=== PATIENT | female | born 1965 | race Caucasian/White ===

== ENCOUNTER 2016-09-07 17:41 | Emergency (ER) | payer BC ==
[~2016-09-07 17:41] MED LIST: /CIPR75TA PO; /MOM400 PO; /PANT40TA PO; ADVI200C5 PO; ALBU17IN INH; ALBU17IN2 INH; ALBU83IN INH; ALBUTEROL INH; ALBUTEROL NEB INH; ARTI99.0 OU; ASPI1TAB PO; ASPI325T PO; ASPI81TA83 PO; BENA25CA2 PO; BUSP5TA PO; BUTACAP PO; BYST10TA2 PO; BYST2.5T PO; CARD240T3 PO; CEPH2CAP PO; CHLO125TA PO; CHLO25TA PO; CHLO25TA3 PO; CLOB5CR EXT; CYCL5TA PO; CYCL5TAB PO; DEPA500T2 PO; DIOV160T5 OR; DIOV320T PO; DOCU10ELUD PO; DRIS50002 PO; FIORCAP3 PO; FIORCAP7 PO; FLAG500T PO; FLEX5TAB3 PO; FLEXERIL PO; FLON1SPR; FLUT50SP; FLUTICASONE; FLUTISP; GLIM1TAB PO; GLIM4TAB PO; GLUC500T PO; HYDR-3713 PO; HYDR10T PO; HYDR25TA PO; IBUP-1114 PO; INSUDET SC; LEVA500T PO; LEVO500T PO; LIDO5DIS EX; LIPI80TA OR; LOPR50TA OR; LOPR50TA PO; MAGN64TASA PO; METF-414 PO; METF1000 PO; MUPI2OI EXT; MUPI2OI TOP; NAPR375T PO; NITR100C37 PO; NITR25SU PO; NORCOTAB PO; OMEP20CA3 PO; OMEP40CA2 PO; OXYC5TAB2 PO; PERC5TAB8 PO; PRED10TA2 PO; PROP80TA PO; RANI1TAB6 PO; ROSU10TA PO; ROSU40TA PO; SENO8.6T9 PO; SERT50TA2 PO; SPIR25TA2 PO; SUCR1SS PO; SYMB16INH INH; SYMB80INH INH; SYMBICORT INH; TRAN100T PO; TYLE167L PO; TYLE325T5 PO; VIST25CA PO; VITAD1000T PO; VITAMIN D PO; VITMTA PO; ZANT150T PO; ZONI25CA2 PO; [UNRECOGNIZED DRUG - OTHER] OR; [UNRECOGNIZED DRUG - OTHER] PO; [UNRECOGNIZED DRUG - OTHER] PO; albuterol INH; fluticasone; magnesium chloride PO
[2016-09-07 18:58] LABS: BASO # 0.1 K/mm3 (0.0-0.2); BASO % 1.2 % (0.0-1.0); EOS # 0.2 K/mm3 (0.0-0.50); EOS % 2.4 % (0.0-3.0); LARGE UNSTAINED CELL # 0.2 K/mm3 (0.0-0.4); LARGE UNSTAINED CELL % 1.7 % (0.0-4.0); LYMPH # 1.9 K/mm3 (1.5-4.5); LYMPH % 18.1 % (24.0-44.0); MEAN CORPUSCULAR HEMOGLOBIN 28.4 pg (27.0-33.0); MEAN CORPUSCULAR VOLUME 85.9 fl (80.0-96.0); MONO # 0.6 K/mm3 (0.0-0.8); MONO % 6.1 % (0.0-5.0); NEUTROPHILS # 6.6 K/mm3 (1.8-7.7); NEUTROPHILS % 70.5 % (36.0-66.0); PLATELET COUNT, AUTOMATED 263 k/mm3 (150-450); RED CELL DISTRIBUTION WIDTH 13.6 % (11.5-14.5); WHITE BLOOD COUNT 9.4 K/mm3 (4.0-10.0)
[2016-09-07 19:01] LABS: CALCIUM LEVEL 9.5 MG/DL (8.5-10.1); CREATININE FOR GFR 1.07 MG/DL (0.55-1.02); POTASSIUM SERUM 3.3 MEQ/L (3.5-5.1)
[2016-09-07 19:22] LABS: ERYTHROCYTE SEDIMENTATION RATE 54 mm/hr (0-20)
--- NOTE | 2016-09-07 20:12 | EDDOCDS ---
Nurse's Notes [facility] Name: Ruby Rodriguez Age: 51 yrs Sex: Female : 1965 Arrival Date: 09/07/2016 Time: 17:41 Bed 12 Private MD: Jerrod Wilknison P. Diagnosis: Somatization disorder;Type 2 diabetes mellitus Presentation: 09/07 17:45 Presenting complaint: Presenting complaint: EMS states: numbness and weakness to all 4 kc3 extremities with pt c/o tingling to upper extremities and face upon arrival. 17:48 The last date and time the patient was known to be well was was at 16:00 on September 07 2016. Pt with weakness to upper and lower extremities. Pt reports numbness to right side of face. Pt reports tingling to face and upper extremities. The patients blood glucose was checked before arriving to the hospital and was found to be normal. Adult Sepsis Screening: The patient does not have new or worsening altered mentation. Patient's respiratory rate is less than 22. Systolic blood pressure is greater than 100. Patient has a qSOFA score of 0- Negative Sepsis Screen. Suicide/Homicide risk assessment- the patient denies having any suicidal and/or homicidal ideations and does not present with any other emotional, behavioral or mental health complaints. Status: Patient is not a environmental services attendant or dependent. Transition of care: patient was not received from another setting of care. 17:48 Acuity: LEE Level 3 kc3 17:48 Method Of Arrival: Ambulance kc3 18:00 Care prior to arrival: Medications administered prior to arrival: Zofran 4mg IV en kc3 route by EMS. Triage Assessment: 18:02 The onset of the patients symptoms was less than three hours ago. General: Appears in kc3 no apparent distress, comfortable, Behavior is appropriate for age, cooperative. Pain: Location: neck to shoulders Pain currently is 8 out of 10 on a pain scale. HIV screening NA for this visit Offered previously. The patient is triaged at the bedside. See Assessment in Nurses Notes section of ED record. Neurological: Level of Consciousness is awake, alert, obeys commands, Oriented to person, place, time, Net Application Architect are weak bilaterally Moves all extremities. Weakness Speech is normal, Facial symmetry appears normal, Pupils are PERRLA, Tingling in face, right arm, left arm, right leg and left leg Numbness in right cheek Reports Back Pain Shortness of Breath. Cardiovascular: Rhythm is sinus tachycardia. Respiratory: Airway is patent Respiratory effort is even, unlabored. Derm: Skin is intact, is healthy with good turgor, Skin is pink, warm & dry. Musculoskeletal: Capillary refill < 3 seconds. PROBLEM MANAGER: 18:06 LMP N/A - Hysterectomy kc3 Historical: - Allergies: Bactrim (Vomit); Dilaudid (Hives); Fentanyl (Swelling); Plaquenil (Vomit); SULFA (SULFONAMIDES) (Hives); - Home Meds: 1. Albuterol Inhl 3 mL every 4 hours as needed 2. albuterol sulfate 90 mcg/actuation Inhl HFAA 2 puffs every 4 hours 3. Bystolic 10 mg oral tab 1 tab once daily 4. chlorthalidone 25 mg Oral tab 1 tab once daily 5. clopidogrel 75 mg oral tab 1 tab once daily 6. Crestor 40 mg Oral tab 1 tab once daily 7. cyclobenzaprine 5 mg Oral tab 1 tab 3 times per day 8. Diovan 320 mg Oral tab 1 tab once daily 9. Flonase 50 mcg/actuation Nasal spsn 2 sprays once daily 10. glimepiride 4 mg Oral tab 2 tab once daily 11. Januvia 100 mg oral tab 1 tab once daily 12. Levemir FlexTouch 100 unit/mL (3 mL) subcutaneous inpn 80 units in am daily 13. Mag-Delay 64 mg oral TbER 2 tab twice a day 14. metformin 1,000 mg Oral tab 1 tab every evening with dinner 15. omeprazole 40 mg Oral cpDR 1 cap once daily 16. spironolactone 25 mg Oral tab 1 tab once daily 17. proair inhaler 2 puff daily as needed 18. symbicort 2 puff twice a day 19. Vitamin D3 oral weekly on Sundays - PMHx: Asthma; back pain; Hypercholesterolemia; Hypertension; Spinal Stenosis; Lupus coagulant positive; - PSHx: Left Shoulder; D&C; Tonsillectomy; Cesearean Section; Hysterectomy; Thoracic Laminectomy; Spinal Fusion; left arthroscopic knee; - The history from nurses notes was reviewed: and elements of the historical information I have obtained differs from that reported to nursing. - Social history: Smoking status: Patient states was never smoker of tobacco. No barriers to communication noted, The patient speaks fluent Danish, Speaks appropriately for age. - Family history: Not pertinent. - : The pt / caregiver states he / she is on anticoagulants: Plavix. Home medication list is obtained from [employer] import data. - Hospitalizations: : The patient was recently seen at [facility], and discharged 3 month(s) ago, for similar complaints. - Exposure Risk Screening:: None identified. - Immunization history:: All immunizations up-to-date. - Social history:: the patient is a non-smoker, the patient does not drink alcohol. Screenin:06 Screening information is obtained from the patient. Fall risk: At risk due to weakness. kc3 The following interventions are performed due to a positive Fall Risk Screen: Fall Risk is added to Special Handling on the patient Summary Screen. A Fall Risk Bracelet was applied to the patient. Side Rails are placed in the up position. A Call Marin is given with instruction to call for help when getting out of bed. Fall Alert bracelet is placed on the patient. Assistance ADL's: requires no assistance with activities of daily living. Abuse/DV Screen: The patient / caregiver reports he/she is: not in a situation that causes fear, pain or injury. Nutritional screening: No deficits noted. Advance Directives: Currently, there is a health care proxy, Jose Rodriguez, . home support is adequate. Assessment: 18:06 General: See triage note for initial assessment. . kc3 19:10 General: Verbal report given by Eliza Figueroa RN. Assumed care of patient at this time.. kas2 19:42 General: Appears in no apparent distress, comfortable, well nourished, well groomed, kas2 Behavior is appropriate for age, cooperative. Pain: Denies pain. Neurological: Level of Consciousness is awake, alert, Oriented to person, place, time. Cardiovascular: Capillary refill < 3 seconds Heart tones S1 S2 present Rhythm is sinus tachycardia No ectopy. Respiratory: Airway is patent Respiratory effort is even, unlabored, Respiratory pattern is regular, symmetrical, Breath sounds are clear bilaterally. Derm: Skin is intact, is healthy with good turgor, Skin is dry, Skin is pink, warm & dry. Skin temperature is warm. Vital Signs: 17:54 BP 131 / 76; Pulse 110; Resp 18; Temp 98.6(TE); Pulse Ox 95% on R/A; Weight 104.33 kg nb2 (R); Height 5 ft. 11 in. (180.34 cm) (R); Pain 8/10; 19:43 BP 112 / 72; Pulse 94; Resp 18; Temp 96.8; Pulse Ox 99% on R/A; Pain 0/10; kas2 17:54 Body Mass Index 32.08 (104.33 kg, 180.34 cm) nb2 Vitals: 17:54 Log In Time N/A - ambulance arrival. nb2 18:06 Glucose Measurement D-stick done by EMS 270 BS. kc3 ED Course: 17:42 Patient visited by Donna Campa, Nurse Practitioner Physician Assistant. lbd 17:42 Jerrod Wilkinson is Private Physician. lbd 17:42 Urvashi Graff,RN is Primary Nurse. lbd 17:42 Patient moved to Waiting lbd 17:42 Patient moved to 12 lbd 17:43 Alvin Mendez MD is Attending Physician. pc 17:54 Patient visited by Kristin Garcia. nb2 17:54 Placed in gown. Bed in low position. Call light in reach. Side rails up X2. Cardiac nb2 monitor on. Pulse ox on. NIBP on. 17:55 Triage Initiated kc3 18:00 Maintain field IV. Dressing intact. Site clean & dry. Gauge & site: 20G left AC. kc3 18:03 Patient visited by Alvin Mendez MD. pc 18:06 The patient / caregiver is instructed regarding the plan of care and ED course. kc3 18:07 Patient visited by Urvashi Graff RN. kc3 18:10 Patient visited by Urvashi Graff RN. kc3 18:13 [facility] Payment Agreement was scanned into [employer] and attached to record. gjb 18:20 Patient name changed from Ruby\S\Chana\S\Rodriguez\S\ to Ruby\S\ \S\Rodriguez. EDMS 18:37 ESR Sent. kc3 18:38 Patient visited by Urvashi Graff RN. kc3 18:38 C Reactive Protein Sent. kc3 18:38 A1C Sent. kc3 18:38 MED Profile Sent. kc3 18:38 CBC with Diff Sent. kc3 18:38 Labs drawn. (by ED staff). Sent per order to lab. kc3 18:59 Renetta FlemingRN is Primary Nurse. kas2 19:16 Patient ambulated; tolerated well, although patient reports slight weakness in right mdr leg. 19:17 Patient visited by Martin Zhu PCA. mdr 19:18 Attending Physician role handed off by Alvin Mendez MD mm11 19:18 Westley Stock DO is Attending Physician. mm11 19:31 Jerrod Wilkinson is Referral Physician. 11 19:47 Patient visited by Renetta Fleming RN. [facility] 19:48 Discontinued IV bleeding controlled, pressure dressing applied, No redness/swelling at [facility] site. No procedures done that require assistance. 19:49 Patient visited by Renetta Fleming RN. [facility] Point of Care Testing: Blood Glucose: 19:05 Blood Glucose: 145 mg/dL; kc3 Ranges: Order Results: Lab Order: CBC with Diff; SPEC'M 09/07/16 18:23 Test: WHITE BLOOD COUNT; Value: 9.4; Range: 4.0-10.0; Units: K/mm3; Status: F Test: RED BLOOD COUNT; Value: 4.64; Range: 4.00-5.40; Units: M/mm3; Status: F Test: HEMOGLOBIN; Value: 13.2; Range: 12.0-16.0; Units: g/dl; Status: F Test: HEMATOCRIT; Value: 39.8; Range: 36.0-47.0; Units: %; Status: F Test: MEAN CORPUSCULAR VOLUME; Value: 85.9; Range: 80.0-96.0; Units: fl; Status: F Test: MEAN CORPUSCULAR HEMOGLOBIN; Value: 28.4; Range: 27.0-33.0; Units: pg; Status: F Test: MEAN CORPUSCULAR HGB CONC; Value: 33.0; Range: 32.0-36.5; Units: g/dl; Status: F Test: RED CELL DISTRIBUTION WIDTH; Value: 13.6; Range: 11.5-14.5; Units: %; Status: F Test: PLATELET COUNT, AUTOMATED; Value: 263; Range: 150-450; Units: k/mm3; Status: F Test: NEUTROPHILS %; Value: 70.5; Range: 36.0-66.0; Abnormal: Above high normal; Units: %; Status: F Test: LYMPH %; Value: 18.1; Range: 24.0-44.0; Abnormal: Below low normal; Units: %; Status: F Test: MONO %; Value: 6.1; Range: 0.0-5.0; Abnormal: Above high normal; Units: %; Status: F Test: EOS %; Value: 2.4; Range: 0.0-3.0; Units: %; Status: F Test: BASO %; Value: 1.2; Range: 0.0-1.0; Abnormal: Above high normal; Units: %; Status: F Test: LARGE UNSTAINED CELL %; Value: 1.7; Range: 0.0-4.0; Units: %; Status: F Test: NEUTROPHILS #; Value: 6.6; Range: 1.8-7.7; Units: K/mm3; Status: F Test: LYMPH #; Value: 1.9; Range: 1.5-4.5; Units: K/mm3; Status: F Test: MONO #; Value: 0.6; Range: 0.0-0.8; Units: K/mm3; Status: F Test: EOS #; Value: 0.2; Range: 0.0-0.50; Units: K/mm3; Status: F Test: BASO #; Value: 0.1; Range: 0.0-0.2; Units: K/mm3; Status: F Test: LARGE UNSTAINED CELL #; Value: 0.2; Range: 0.0-0.4; Units: K/mm3; Status: F Lab Order: MED Profile; SPEC'M 09/07/16 18:23 Test: GLUCOSE, FASTING; Value: 233; Range: 70-105; Abnormal: Above high normal; Units: MG/DL; Status: F Test: BLOOD UREA NITROGEN; Value: 18; Range: 7-18; Units: MG/DL; Status: F Test: CREATININE FOR GFR; Value: 1.07; Range: 0.55-1.02; Abnormal: Above high normal; Units: MG/DL; Status: F Test: GLOMERULAR FILTRATION RATE; Value: 58.0; Range: >58; Status: F Test: SODIUM LEVEL; Value: 139; Range: 136-145; Units: MEQ/L; Status: F Test: POTASSIUM SERUM; Value: 3.3; Range: 3.5-5.1; Abnormal: Below low normal; Units: MEQ/L; Status: F Test: CHLORIDE LEVEL; Value: 98; Range: 98-107; Units: MEQ/L; Status: F Test: CARBON DIOXIDE LEVEL; Value: 29; Range: 21-32; Units: MEQ/L; Status: F Test: ANION GAP; Value: 12; Range: 8-16; Units: MEQ/L; Status: F Test: CALCIUM LEVEL; Value: 9.5; Range: 8.5-10.1; Units: MG/DL; Status: F Test Note: ; Units are mL/min/1.73 m2 Chronic Kidney Disease Staging per NKF: Stage I & II GFR >=60 Normal to Mildly Decreased Stage III GFR 30-59 Moderately Decreased Stage IV GFR 15-29 Severely Decreased Stage V GFR <15 Very Little GFR Left ESRD GFR <15 on QM NURSE Lab Order: A1C; SPEC'M 09/07/16 18:23 Test: HEMOGLOBIN A1c; Value: 7.9; Range: 4.5-6.2; Abnormal: Above high normal; Units: %; Status: F Test: ESTIMATED AVERAGE GLUCOSE; Value: 180; Range: 60-110; Abnormal: Above high normal; Units: MG/DL; Status: F Lab Order: C Reactive Protein; SPEC'M 09/07/16 18:23 Test: C REACTIVE PROTEIN QUANTITATIV; Value: 1.05; Range: 0.00-0.30; Abnormal: Above high normal; Units: MG/DL; Status: F Lab Order: ESR; SPEC'M 09/07/16 18:23 Test: ERYTHROCYTE SEDIMENTATION RATE; Value: 54; Range: 0-20; Abnormal: Above high normal; Units: mm/hr; Status: F Outcome: 19:31 Discharge ordered by Provider. mm11 19:49 Discharge Assessment: patient administered narcotics - no. The following High Risk [facility] Discharge criteria are identified: None. Discharged to home ambulatory, with family. Condition: good Condition: stable Condition: improved. CT Study completed. Property :Personal belongings accompany Pt. 20:11 Patient left the ED. [facility] Signatures: Dispatcher [employer] Alvin Dudely MD MD pc Daly, Linda, Nurse Practitioner Physician Assistant Unit lbd Westley Stock, DO mm11 Martin Zhu, DIGITAL INTERN DIGITAL INTERN mdr Urvashi Graff,DAVID RN kc3 Leslee Rutherford KimRN RN jarred2 Kristin Garcia2 Corrections: (The following items were deleted from the chart) 17:55 17:45 Presenting complaint: kc3 kc3 18:10 17:48 Pt with weakness to upper and lower extremities. Pt reports numbness to left side kc3 of face. Pt reports tingling to face and upper extremities. The patients blood glucose was checked before arriving to the hospital and was found to be normal. kc3 18:32 17:59 PMHx: CVA (2014); kc3 pc 18:32 17:59 PMHx: Diabetes - NIDDM: controlled; kc3 pc 18:32 17:59 PMHx: Seizures; kc3 pc 18:38 17:59 PMHx: Lupus; kc3 pc 18:38 17:59 PMHx: TIA; kc3 pc MTDD
--- NOTE | 2016-09-07 20:12 | EDDOCDS ---
Physician Documentation [facility] Name: Ruby Rodriguez Age: 51 yrs Sex: Female : 1965 Arrival Date: 09/07/2016 Time: 17:41 Bed 12 Private MD: Jerrod Wilkinson P. Disposition: 09/07/16 19:31 Discharged to Home/Self Care. Impression: Somatization disorder, Type 2 diabetes mellitus. - Condition is Stable. - Discharge Instructions: Somatic Symptom Disorder. - Medication Reconciliation, Local Pharmacy Hours form. - Follow up: Jerrod Wilkinson; When: 1 - 2 days; Reason: Recheck today's complaints, Continuance of care. - Problem is an ongoing problem. - Symptoms have improved. HPI: 09/07 18:19 This 51 yrs old Female presents to ER via Ambulance with complaints of pc Weakness. 18:19 The history is obtained from the patient. She has multiple complaints, all occurring pc over the past 5 days; 1, no-weeping skin sores on her arms, abdomen, neck, all less than 1cm diameter that are itchy, that she is actively scratching during the interview; 2, 6 days MULE SPINNER, she had left facial and left arm numbness that lasted 2 days and resolved, without headache, without weakness; 3, 3 days MULE SPINNER, she had a headache that last 10 hours and resolved and did not have any associated symptoms; 4, She developed URI symptoms that lasted 24 hours, 5 days MULE SPINNER; 5, today she developed left sided "total numbness. I couldn't even move it, so I meditated and it got better but I was afraid I was in a Lupus flare or having another TIA" which led to her calling EMS. 18:19 She has had multiple presentation for the same, with all investigations non-diagnostic. pc She has had multiple CTs, MRIs and EEGs, all negative. She fired a local Neurologist because she was told her symptoms were psychosomatic, fired one in [place] for the same and now sees one in [place], who she reports, has again has found nothing to explain her reported symptoms. When asked why she believes them to be Lupus flares, she says her Financial Accountant in [place] tells her that "must be the problem and he tells me to go the ED".. Historical: - Allergies: Bactrim (Vomit); Dilaudid (Hives); Fentanyl (Swelling); Plaquenil (Vomit); SULFA (SULFONAMIDES) (Hives); - Home Meds: 1. Albuterol Inhl 3 mL every 4 hours as needed 2. albuterol sulfate 90 mcg/actuation Inhl HFAA 2 puffs every 4 hours 3. Bystolic 10 mg oral tab 1 tab once daily 4. chlorthalidone 25 mg Oral tab 1 tab once daily 5. clopidogrel 75 mg oral tab 1 tab once daily 6. Crestor 40 mg Oral tab 1 tab once daily 7. cyclobenzaprine 5 mg Oral tab 1 tab 3 times per day 8. Diovan 320 mg Oral tab 1 tab once daily 9. Flonase 50 mcg/actuation Nasal spsn 2 sprays once daily 10. glimepiride 4 mg Oral tab 2 tab once daily 11. Januvia 100 mg oral tab 1 tab once daily 12. Levemir FlexTouch 100 unit/mL (3 mL) subcutaneous inpn 80 units in am daily 13. Mag-Delay 64 mg oral TbER 2 tab twice a day 14. metformin 1,000 mg Oral tab 1 tab every evening with dinner 15. omeprazole 40 mg Oral cpDR 1 cap once daily 16. spironolactone 25 mg Oral tab 1 tab once daily 17. proair inhaler 2 puff daily as needed 18. symbicort 2 puff twice a day 19. Vitamin D3 oral weekly on Sundays - PMHx: Asthma; back pain; Hypercholesterolemia; Hypertension; Spinal Stenosis; Lupus coagulant positive; - PSHx: Left Shoulder; D&C; Tonsillectomy; Cesearean Section; Hysterectomy; Thoracic Laminectomy; Spinal Fusion; left arthroscopic knee; - The history from nurses notes was reviewed: and elements of the historical information I have obtained differs from that reported to nursing. - Social history: Smoking status: Patient states was never smoker of tobacco. No barriers to communication noted, The patient speaks fluent Greek, Speaks appropriately for age. - Family history: Not pertinent. - : The pt / caregiver states he / she is on anticoagulants: Plavix. Home medication list is obtained from [employer] import data. - Hospitalizations: : The patient was recently seen at [facility], and discharged 3 month(s) ago, for similar complaints. - Exposure Risk Screening:: None identified. - Immunization history:: All immunizations up-to-date. - Social history:: the patient is a non-smoker, the patient does not drink alcohol. 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 pc Exam: 18:19 General Appearance: no acute distress, alert. pc 18:19 EENT: normal eye inspection, ears, nose and throat normal, pharynx normal, mucous membranes moist 18:19 Neck: The exam reveals no acute abnormalities. ROM is normal and painless. No nuchal rigidity is noted.. 18:19 Respiratory: no respiratory distress, normal breath sounds, chest non-tender. 18:19 CVS: regular pulse rate, regular rhythm, normal S1 and S2, no murmurs, strong peripheral pulses, normal capillary refill. 18:19 Abdomen: soft, non-tender, no organomegaly, normal bowel sounds. 18:19 Back: normal inspection. 18:19 Skin: skin color is normal, warm, dry, multiple round, scabbed over lesions on both arms, her neck and her abdomen. No drainage from any lesions. . 18:19 Extremities: The extremities have a grossly normal appearance, are non-tender, without acute ROM abnormalities. 18:19 Neuro: oriented x 3, cranial nerves normal as tested, no motor deficits, no sensory deficits, She stood, pivoted and sat on the stretcher without assistance. 18:19 Psych: normal mood, anxious, with constant digging her index fingers nails into her thumbs. Vital Signs: 17:54 BP 131 / 76; Pulse 110; Resp 18; Temp 98.6(TE); Pulse Ox 95% on R/A; Weight 104.33 kg / nb2 230.01 lbs (R); Height 5 ft. 11 in. (180.34 cm) (R); Pain 8/10; 19:43 BP 112 / 72; Pulse 94; Resp 18; Temp 96.8; Pulse Ox 99% on R/A; Pain 0/10; kas2 17:54 Body Mass Index 32.08 (104.33 kg, 180.34 cm) nb2 MDM: 18:12 Financial registration complete. jadyn 18:13 [facility] Payment Agreement was scanned into [employer] and attached to record. jadyn 18:19 Differential Diagnosis: Hx of lupus coagulant, not SLE; type 2 DM with poor control; pc HTN; DDD of cervical and lumbar spines; multiple somatic complaints that appear to be of a psychosomatic origin. Plan: labs. 18:20 CBC with Diff Ordered. EDMS 18:20 MED Profile Ordered. EDMS 18:20 A1C Ordered. EDMS 18:20 C Reactive Protein Ordered. EDMS 18:20 ESR Ordered. EDMS 19:05 CBC with Diff Reviewed. pc 19:05 MED Profile Reviewed. pc 19:05 A1C Reviewed. pc 19:05 C Reactive Protein Reviewed. pc 19:07 Ambulate Patient to Assess Patient Safety ordered. pc 19:07 Data reviewed: old medical records, vital signs, nurses notes, lab test results. Test pc interpretation: LAB - all labs as ordered have been reviewed, interpreted and considered in the overall management of the clinical presentation;. The patient has been re-examined and re-evaluated. The clinical presentation did not require any ED treatment or interventions. 19:53 CBC with Diff Reviewed. mm11 19:53 ESR Reviewed. mm11 Point of Care Testing: Blood Glucose: 19:05 Blood Glucose: 145 mg/dL; kc3 Ranges: Signatures: Dispatcher [employer] EDMS Alvin Mendez MD MD pc Maynard, Matthew, DO DO mm11 Urvashi Graff RN RN Leslee Wen KimRN RN kas2 The chart was reviewed and I authenticate all verbal orders and agree with the evaluation and treatment provided.Corrections: (The following items were deleted from the chart) 18:32 17:59 PMHx: CVA (2015); kc3 pc 18:32 17:59 PMHx: Diabetes - NIDDM: controlled; kc3 pc 18:32 17:59 PMHx: Seizures; kc3 pc 18:38 17:59 PMHx: Lupus; kc3 pc 18:38 17:59 PMHx: TIA; kc3 pc Attachments: 18:13 [facility] Payment Agreement gjb MTDD
--- NOTE | 2016-09-09 21:13 | EDDOCDS ---
Physician Documentation [facility] Name: Ruby Rodriguez Age: 51 yrs Sex: Female : 1965 Arrival Date: 09/07/2016 Time: 17:41 Bed 12 Private MD: Jerrod Wilkinson P. Disposition: 09/07/16 19:31 Discharged to Home/Self Care. Impression: Somatization disorder, Type 2 diabetes mellitus. - Condition is Stable. - Discharge Instructions: Somatic Symptom Disorder. - Medication Reconciliation, Local Pharmacy Hours form. - Follow up: Jerrod Wilkinson; When: 1 - 2 days; Reason: Recheck today's complaints, Continuance of care. - Problem is an ongoing problem. - Symptoms have improved. HPI: 09/07 18:19 This 51 yrs old Female presents to ER via Ambulance with complaints of pc Weakness. 18:19 The history is obtained from the patient. She has multiple complaints, all occurring pc over the past 5 days; 1, no-weeping skin sores on her arms, abdomen, neck, all less than 1cm diameter that are itchy, that she is actively scratching during the interview; 2, 6 days MOONER, she had left facial and left arm numbness that lasted 2 days and resolved, without headache, without weakness; 3, 3 days MOONER, she had a headache that last 10 hours and resolved and did not have any associated symptoms; 4, She developed URI symptoms that lasted 24 hours, 5 days MOONER; 5, today she developed left sided "total numbness. I couldn't even move it, so I meditated and it got better but I was afraid I was in a Lupus flare or having another TIA" which led to her calling EMS. 18:19 She has had multiple presentation for the same, with all investigations non-diagnostic. pc She has had multiple CTs, MRIs and EEGs, all negative. She fired a local Neurologist because she was told her symptoms were psychosomatic, fired one in [place] for the same and now sees one in [place], who she reports, has again has found nothing to explain her reported symptoms. When asked why she believes them to be Lupus flares, she says her Children'S Book Author in [place] tells her that "must be the problem and he tells me to go the ED".. Historical: - Allergies: Bactrim (Vomit); Dilaudid (Hives); Fentanyl (Swelling); Plaquenil (Vomit); SULFA (SULFONAMIDES) (Hives); - Home Meds: 1. Albuterol Inhl 3 mL every 4 hours as needed 2. albuterol sulfate 90 mcg/actuation Inhl HFAA 2 puffs every 4 hours 3. Bystolic 10 mg oral tab 1 tab once daily 4. chlorthalidone 25 mg Oral tab 1 tab once daily 5. clopidogrel 75 mg oral tab 1 tab once daily 6. Crestor 40 mg Oral tab 1 tab once daily 7. cyclobenzaprine 5 mg Oral tab 1 tab 3 times per day 8. Diovan 320 mg Oral tab 1 tab once daily 9. Flonase 50 mcg/actuation Nasal spsn 2 sprays once daily 10. glimepiride 4 mg Oral tab 2 tab once daily 11. Januvia 100 mg oral tab 1 tab once daily 12. Levemir FlexTouch 100 unit/mL (3 mL) subcutaneous inpn 80 units in am daily 13. Mag-Delay 64 mg oral TbER 2 tab twice a day 14. metformin 1,000 mg Oral tab 1 tab every evening with dinner 15. omeprazole 40 mg Oral cpDR 1 cap once daily 16. spironolactone 25 mg Oral tab 1 tab once daily 17. proair inhaler 2 puff daily as needed 18. symbicort 2 puff twice a day 19. Vitamin D3 oral weekly on Sundays - PMHx: Asthma; back pain; Hypercholesterolemia; Hypertension; Spinal Stenosis; Lupus coagulant positive; - PSHx: Left Shoulder; D&C; Tonsillectomy; Cesearean Section; Hysterectomy; Thoracic Laminectomy; Spinal Fusion; left arthroscopic knee; - The history from nurses notes was reviewed: and elements of the historical information I have obtained differs from that reported to nursing. - Social history: Smoking status: Patient states was never smoker of tobacco. No barriers to communication noted, The patient speaks fluent Cape Verdean, Speaks appropriately for age. - Family history: Not pertinent. - : The pt / caregiver states he / she is on anticoagulants: Plavix. Home medication list is obtained from [employer] import data. - Hospitalizations: : The patient was recently seen at [facility], and discharged 3 month(s) ago, for similar complaints. - Exposure Risk Screening:: None identified. - Immunization history:: All immunizations up-to-date. - Social history:: the patient is a non-smoker, the patient does not drink alcohol. 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 pc Exam: 18:19 General Appearance: no acute distress, alert. pc 18:19 EENT: normal eye inspection, ears, nose and throat normal, pharynx normal, mucous membranes moist 18:19 Neck: The exam reveals no acute abnormalities. ROM is normal and painless. No nuchal rigidity is noted.. 18:19 Respiratory: no respiratory distress, normal breath sounds, chest non-tender. 18:19 CVS: regular pulse rate, regular rhythm, normal S1 and S2, no murmurs, strong peripheral pulses, normal capillary refill. 18:19 Abdomen: soft, non-tender, no organomegaly, normal bowel sounds. 18:19 Back: normal inspection. 18:19 Skin: skin color is normal, warm, dry, multiple round, scabbed over lesions on both arms, her neck and her abdomen. No drainage from any lesions. . 18:19 Extremities: The extremities have a grossly normal appearance, are non-tender, without acute ROM abnormalities. 18:19 Neuro: oriented x 3, cranial nerves normal as tested, no motor deficits, no sensory deficits, She stood, pivoted and sat on the stretcher without assistance. 18:19 Psych: normal mood, anxious, with constant digging her index fingers nails into her thumbs. Vital Signs: 17:54 BP 131 / 76; Pulse 110; Resp 18; Temp 98.6(TE); Pulse Ox 95% on R/A; Weight 104.33 kg / nb2 230.01 lbs (R); Height 5 ft. 11 in. (180.34 cm) (R); Pain 8/10; 19:43 BP 112 / 72; Pulse 94; Resp 18; Temp 96.8; Pulse Ox 99% on R/A; Pain 0/10; kas2 17:54 Body Mass Index 32.08 (104.33 kg, 180.34 cm) nb2 MDM: 18:12 Financial registration complete. jadyn 18:13 [facility] Payment Agreement was scanned into [email or web address] and attached to record. jadyn 18:19 Differential Diagnosis: Hx of lupus coagulant, not SLE; type 2 DM with poor control; pc HTN; DDD of cervical and lumbar spines; multiple somatic complaints that appear to be of a psychosomatic origin. Plan: labs. 18:20 CBC with Diff Ordered. EDMS 18:20 MED Profile Ordered. EDMS 18:20 A1C Ordered. EDMS 18:20 C Reactive Protein Ordered. EDMS 18:20 ESR Ordered. EDMS 19:05 CBC with Diff Reviewed. pc 19:05 MED Profile Reviewed. pc 19:05 A1C Reviewed. pc 19:05 C Reactive Protein Reviewed. pc 19:07 Ambulate Patient to Assess Patient Safety ordered. pc 19:07 Data reviewed: old medical records, vital signs, nurses notes, lab test results. Test pc interpretation: LAB - all labs as ordered have been reviewed, interpreted and considered in the overall management of the clinical presentation;. The patient has been re-examined and re-evaluated. The clinical presentation did not require any ED treatment or interventions. 19:53 CBC with Diff Reviewed. mm11 19:53 ESR Reviewed. [facility] 09/08 10:43 T-Sheet-- Draft Copy was scanned into [email or web address] and attached to record. Point of Care Testing: Blood Glucose: 09/07 19:05 Blood Glucose: 145 mg/dL; kc3 Ranges: Signatures: Dispatcher [employer] EDMS Alvin Mendez MD MD pc Barnhardt, Gloria, Reg Reg Westley Stock DO DO mm11 Urvashi Graff RN RN kc3 Beck, Gabriela gjb Smith, Kim, RN RN kas2 The chart was reviewed and I authenticate all verbal orders and agree with the evaluation and treatment provided.Corrections: (The following items were deleted from the chart) 18:32 17:59 PMHx: CVA (2015); kc3 pc 18:32 17:59 PMHx: Diabetes - NIDDM: controlled; kc3 pc 18:32 17:59 PMHx: Seizures; kc3 pc 18:38 17:59 PMHx: Lupus; kc3 pc 18:38 17:59 PMHx: TIA; kc3 pc Attachments: 18:13 [facility] [place] [facility] 09/08 10:43 T-Sheet-- Draft Copy gb Chart Complete MTDD
--- NOTE | 2016-09-09 21:13 | EDDOCDS ---
Nurse's Notes [facility] Name: Ruby Rodriguez Age: 51 yrs Sex: Female : 1965 Arrival Date: 09/07/2016 Time: 17:41 Bed 12 Private MD: Jerrod Wilkinson P. Diagnosis: Somatization disorder;Type 2 diabetes mellitus Presentation: 09/07 17:45 Presenting complaint: Presenting complaint: EMS states: numbness and weakness to all 4 kc3 extremities with pt c/o tingling to upper extremities and face upon arrival. 17:48 The last date and time the patient was known to be well was was at 16:00 on September 07 2016. Pt with weakness to upper and lower extremities. Pt reports numbness to right side of face. Pt reports tingling to face and upper extremities. The patients blood glucose was checked before arriving to the hospital and was found to be normal. Adult Sepsis Screening: The patient does not have new or worsening altered mentation. Patient's respiratory rate is less than 22. Systolic blood pressure is greater than 100. Patient has a qSOFA score of 0- Negative Sepsis Screen. Suicide/Homicide risk assessment- the patient denies having any suicidal and/or homicidal ideations and does not present with any other emotional, behavioral or mental health complaints. Status: Patient is not a career services manager or dependent. Transition of care: patient was not received from another setting of care. 17:48 Acuity: LEE Level 3 kc3 17:48 Method Of Arrival: Ambulance kc3 18:00 Care prior to arrival: Medications administered prior to arrival: Zofran 4mg IV en kc3 route by EMS. Triage Assessment: 18:02 The onset of the patients symptoms was less than three hours ago. General: Appears in kc3 no apparent distress, comfortable, Behavior is appropriate for age, cooperative. Pain: Location: neck to shoulders Pain currently is 8 out of 10 on a pain scale. HIV screening NA for this visit Offered previously. The patient is triaged at the bedside. See Assessment in Nurses Notes section of ED record. Neurological: Level of Consciousness is awake, alert, obeys commands, Oriented to person, place, time, Motion Picture Printer are weak bilaterally Moves all extremities. Weakness Speech is normal, Facial symmetry appears normal, Pupils are PERRLA, Tingling in face, right arm, left arm, right leg and left leg Numbness in right cheek Reports Back Pain Shortness of Breath. Cardiovascular: Rhythm is sinus tachycardia. Respiratory: Airway is patent Respiratory effort is even, unlabored. Derm: Skin is intact, is healthy with good turgor, Skin is pink, warm & dry. Musculoskeletal: Capillary refill < 3 seconds. 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 Albuterol Inhl 3 mL every 4 hours as needed 2. albuterol sulfate 90 mcg/actuation Inhl HFAA 2 puffs every 4 hours 3. Bystolic 10 mg oral tab 1 tab once daily 4. chlorthalidone 25 mg Oral tab 1 tab once daily 5. clopidogrel 75 mg oral tab 1 tab once daily 6. Crestor 40 mg Oral tab 1 tab once daily 7. cyclobenzaprine 5 mg Oral tab 1 tab 3 times per day 8. Diovan 320 mg Oral tab 1 tab once daily 9. Flonase 50 mcg/actuation Nasal spsn 2 sprays once daily 10. glimepiride 4 mg Oral tab 2 tab once daily 11. Januvia 100 mg oral tab 1 tab once daily 12. Levemir FlexTouch 100 unit/mL (3 mL) subcutaneous inpn 80 units in am daily 13. Mag-Delay 64 mg oral TbER 2 tab twice a day 14. metformin 1,000 mg Oral tab 1 tab every evening with dinner 15. omeprazole 40 mg Oral cpDR 1 cap once daily 16. spironolactone 25 mg Oral tab 1 tab once daily 17. proair inhaler 2 puff daily as needed 18. symbicort 2 puff twice a day 19. Vitamin D3 oral weekly on Sundays - PMHx: Asthma; back pain; Hypercholesterolemia; Hypertension; Spinal Stenosis; Lupus coagulant positive; - PSHx: Left Shoulder; D&C; Tonsillectomy; Cesearean Section; Hysterectomy; Thoracic Laminectomy; Spinal Fusion; left arthroscopic knee; - The history from nurses notes was reviewed: and elements of the historical information I have obtained differs from that reported to nursing. - Social history: Smoking status: Patient states was never smoker of tobacco. No barriers to communication noted, The patient speaks fluent Georgian, Speaks appropriately for age. - Family history: Not pertinent. - : The pt / caregiver states he / she is on anticoagulants: Plavix. Home medication list is obtained from [employer] import data. - Hospitalizations: : The patient was recently seen at [facility], and discharged 3 month(s) ago, for similar complaints. - Exposure Risk Screening:: None identified. - Immunization history:: All immunizations up-to-date. - Social history:: the patient is a non-smoker, the patient does not drink alcohol. Screenin:06 Screening information is obtained from the patient. Fall risk: At risk due to weakness. kc3 The following interventions are performed due to a positive Fall Risk Screen: Fall Risk is added to Special Handling on the patient Summary Screen. A Fall Risk Bracelet was applied to the patient. Side Rails are placed in the up position. A Call Marin is given with instruction to call for help when getting out of bed. Fall Alert bracelet is placed on the patient. Assistance ADL's: requires no assistance with activities of daily living. Abuse/DV Screen: The patient / caregiver reports he/she is: not in a situation that causes fear, pain or injury. Nutritional screening: No deficits noted. Advance Directives: Currently, there is a health care proxy, Jose Rodriguez, . home support is adequate. Assessment: 18:06 General: See triage note for initial assessment. . kc3 19:10 General: Verbal report given by Eliza Figueroa RN. Assumed care of patient at this time.. kas2 19:42 General: Appears in no apparent distress, comfortable, well nourished, well groomed, kas2 Behavior is appropriate for age, cooperative. Pain: Denies pain. Neurological: Level of Consciousness is awake, alert, Oriented to person, place, time. Cardiovascular: Capillary refill < 3 seconds Heart tones S1 S2 present Rhythm is sinus tachycardia No ectopy. Respiratory: Airway is patent Respiratory effort is even, unlabored, Respiratory pattern is regular, symmetrical, Breath sounds are clear bilaterally. Derm: Skin is intact, is healthy with good turgor, Skin is dry, Skin is pink, warm & dry. Skin temperature is warm. Vital Signs: 17:54 BP 131 / 76; Pulse 110; Resp 18; Temp 98.6(TE); Pulse Ox 95% on R/A; Weight 104.33 kg nb2 (R); Height 5 ft. 11 in. (180.34 cm) (R); Pain 8/10; 19:43 BP 112 / 72; Pulse 94; Resp 18; Temp 96.8; Pulse Ox 99% on R/A; Pain 0/10; kas2 17:54 Body Mass Index 32.08 (104.33 kg, 180.34 cm) nb2 Vitals: 17:54 Log In Time N/A - ambulance arrival. nb2 18:06 Glucose Measurement D-stick done by EMS 270 BS. kc3 ED Course: 17:42 Patient visited by Donna Campa, Barrel Cap Setter. lbd 17:42 Jerrod Wilkinson is Private Physician. lbd 17:42 Urvashi Graff,RN is Primary Nurse. lbd 17:42 Patient moved to Waiting lbd 17:42 Patient moved to 12 lbd 17:43 Alvin Mendez MD is Attending Physician. pc 17:54 Patient visited by Kristin Garcia. nb2 17:54 Placed in gown. Bed in low position. Call light in reach. Side rails up X2. Cardiac nb2 monitor on. Pulse ox on. NIBP on. 17:55 Triage Initiated kc3 18:00 Maintain field IV. Dressing intact. Site clean & dry. Gauge & site: 20G left AC. kc3 18:03 Patient visited by Alvin Mendez MD. pc 18:06 The patient / caregiver is instructed regarding the plan of care and ED course. kc3 18:07 Patient visited by Urvashi Graff RN. kc3 18:10 Patient visited by Urvashi Graff RN. kc3 18:13 [facility] Payment Agreement was scanned into [employer] and attached to record. gjb 18:20 Patient name changed from Ruby\S\Chana\S\Rodriguez\S\ to Ruby\S\ \S\Rodriguez. EDMS 18:37 ESR Sent. kc3 18:38 Patient visited by Urvashi Graff RN. kc3 18:38 C Reactive Protein Sent. kc3 18:38 A1C Sent. kc3 18:38 MED Profile Sent. kc3 18:38 CBC with Diff Sent. kc3 18:38 Labs drawn. (by ED staff). Sent per order to lab. kc3 18:59 Renetta FlemingRN is Primary Nurse. kas2 19:16 Patient ambulated; tolerated well, although patient reports slight weakness in right mdr leg. 19:17 Patient visited by Martin Zhu PCA. mdr 19:18 Attending Physician role handed off by Alvin Mendez MD mm11 19:18 Westley Stock DO is Attending Physician. mm11 19:31 Jerrod Wilkinson is Referral Physician. 11 19:47 Patient visited by Renetta Fleming RN. [facility] 19:48 Discontinued IV bleeding controlled, pressure dressing applied, No redness/swelling at [facility] site. No procedures done that require assistance. 19:49 Patient visited by Renetta Fleming RN. [facility] 09/08 10:43 T-Sheet-- Draft Copy was scanned into [employer] and attached to record. Point of Care Testing: Blood Glucose: 09/07 19:05 Blood Glucose: 145 mg/dL; kc3 Ranges: Order Results: Lab Order: CBC with Diff; SPEC'M 09/07/16 18:23 Test: WHITE BLOOD COUNT; Value: 9.4; Range: 4.0-10.0; Units: K/mm3; Status: F Test: RED BLOOD COUNT; Value: 4.64; Range: 4.00-5.40; Units: M/mm3; Status: F Test: HEMOGLOBIN; Value: 13.2; Range: 12.0-16.0; Units: g/dl; Status: F Test: HEMATOCRIT; Value: 39.8; Range: 36.0-47.0; Units: %; Status: F Test: MEAN CORPUSCULAR VOLUME; Value: 85.9; Range: 80.0-96.0; Units: fl; Status: F Test: MEAN CORPUSCULAR HEMOGLOBIN; Value: 28.4; Range: 27.0-33.0; Units: pg; Status: F Test: MEAN CORPUSCULAR HGB CONC; Value: 33.0; Range: 32.0-36.5; Units: g/dl; Status: F Test: RED CELL DISTRIBUTION WIDTH; Value: 13.6; Range: 11.5-14.5; Units: %; Status: F Test: PLATELET COUNT, AUTOMATED; Value: 263; Range: 150-450; Units: k/mm3; Status: F Test: NEUTROPHILS %; Value: 70.5; Range: 36.0-66.0; Abnormal: Above high normal; Units: %; Status: F Test: LYMPH %; Value: 18.1; Range: 24.0-44.0; Abnormal: Below low normal; Units: %; Status: F Test: MONO %; Value: 6.1; Range: 0.0-5.0; Abnormal: Above high normal; Units: %; Status: F Test: EOS %; Value: 2.4; Range: 0.0-3.0; Units: %; Status: F Test: BASO %; Value: 1.2; Range: 0.0-1.0; Abnormal: Above high normal; Units: %; Status: F Test: LARGE UNSTAINED CELL %; Value: 1.7; Range: 0.0-4.0; Units: %; Status: F Test: NEUTROPHILS #; Value: 6.6; Range: 1.8-7.7; Units: K/mm3; Status: F Test: LYMPH #; Value: 1.9; Range: 1.5-4.5; Units: K/mm3; Status: F Test: MONO #; Value: 0.6; Range: 0.0-0.8; Units: K/mm3; Status: F Test: EOS #; Value: 0.2; Range: 0.0-0.50; Units: K/mm3; Status: F Test: BASO #; Value: 0.1; Range: 0.0-0.2; Units: K/mm3; Status: F Test: LARGE UNSTAINED CELL #; Value: 0.2; Range: 0.0-0.4; Units: K/mm3; Status: F Lab Order: MED Profile; SPEC'M 09/07/16 18:23 Test: GLUCOSE, FASTING; Value: 233; Range: 70-105; Abnormal: Above high normal; Units: MG/DL; Status: F Test: BLOOD UREA NITROGEN; Value: 18; Range: 7-18; Units: MG/DL; Status: F Test: CREATININE FOR GFR; Value: 1.07; Range: 0.55-1.02; Abnormal: Above high normal; Units: MG/DL; Status: F Test: GLOMERULAR FILTRATION RATE; Value: 58.0; Range: >58; Status: F Test: SODIUM LEVEL; Value: 139; Range: 136-145; Units: MEQ/L; Status: F Test: POTASSIUM SERUM; Value: 3.3; Range: 3.5-5.1; Abnormal: Below low normal; Units: MEQ/L; Status: F Test: CHLORIDE LEVEL; Value: 98; Range: 98-107; Units: MEQ/L; Status: F Test: CARBON DIOXIDE LEVEL; Value: 29; Range: 21-32; Units: MEQ/L; Status: F Test: ANION GAP; Value: 12; Range: 8-16; Units: MEQ/L; Status: F Test: CALCIUM LEVEL; Value: 9.5; Range: 8.5-10.1; Units: MG/DL; Status: F Test Note: ; Units are mL/min/1.73 m2 Chronic Kidney Disease Staging per NKF: Stage I & II GFR >=60 Normal to Mildly Decreased Stage III GFR 30-59 Moderately Decreased Stage IV GFR 15-29 Severely Decreased Stage V GFR <15 Very Little GFR Left ESRD GFR <15 on PAID INTERN Lab Order: A1C; SPEC'M 09/07/16 18:23 Test: HEMOGLOBIN A1c; Value: 7.9; Range: 4.5-6.2; Abnormal: Above high normal; Units: %; Status: F Test: ESTIMATED AVERAGE GLUCOSE; Value: 180; Range: 60-110; Abnormal: Above high normal; Units: MG/DL; Status: F Lab Order: C Reactive Protein; SPEC'M 09/07/16 18:23 Test: C REACTIVE PROTEIN QUANTITATIV; Value: 1.05; Range: 0.00-0.30; Abnormal: Above high normal; Units: MG/DL; Status: F Lab Order: ESR; SPEC'M 09/07/16 18:23 Test: ERYTHROCYTE SEDIMENTATION RATE; Value: 54; Range: 0-20; Abnormal: Above high normal; Units: mm/hr; Status: F Outcome: 19:31 Discharge ordered by Provider. mm11 19:49 Discharge Assessment: patient administered narcotics - no. The following High Risk [facility] Discharge criteria are identified: None. Discharged to home ambulatory, with family. Condition: good Condition: stable Condition: improved. CT Study completed. Property :Personal belongings accompany Pt. 20:11 Patient left the ED. kas2 Signatures: Dispatcher [employer] EDMS Alvin Mendez MD MD pc Donna Campa, Barrel Cap Setter Unit lbd GirishcarmenMaría Elena ledbetter, Shaggy evans Westley Stock, DO mm11 Martin Zhu, TOP CUTTER TOP CUTTER Urvashi Burden,RN RN kc3 Leslee Rutherford Kim, RN RN kas2 Kristin Garcia2 Corrections: (The following items were deleted from the chart) 17:55 17:45 Presenting complaint: kc3 kc3 18:10 17:48 Pt with weakness to upper and lower extremities. Pt reports numbness to left side kc3 of face. Pt reports tingling to face and upper extremities. The patients blood glucose was checked before arriving to the hospital and was found to be normal. kc3 18:32 17:59 PMHx: CVA (2015); kc3 pc 18:32 17:59 PMHx: Diabetes - NIDDM: controlled; kc3 pc 18:32 17:59 PMHx: Seizures; kc3 pc 18:38 17:59 PMHx: Lupus; kc3 pc 18:38 17:59 PMHx: TIA; kc3 pc Chart Complete MTDD
--- NOTE | 2016-09-09 21:13 | EDDOCDS ---
Physician Documentation [facility] Name: Ruby Rodriguez Age: 51 yrs Sex: Female : 1965 Arrival Date: 09/07/2016 Time: 17:41 Bed 12 Private MD: Jerrod Wilkinson P. Disposition: 09/07/16 19:31 Discharged to Home/Self Care. Impression: Somatization disorder, Type 2 diabetes mellitus. - Condition is Stable. - Discharge Instructions: Somatic Symptom Disorder. - Medication Reconciliation, Local Pharmacy Hours form. - Follow up: Jerrod Wilkinson; When: 1 - 2 days; Reason: Recheck today's complaints, Continuance of care. - Problem is an ongoing problem. - Symptoms have improved. HPI: 09/07 18:19 This 51 yrs old Female presents to ER via Ambulance with complaints of pc Weakness. 18:19 The history is obtained from the patient. She has multiple complaints, all occurring pc over the past 5 days; 1, no-weeping skin sores on her arms, abdomen, neck, all less than 1cm diameter that are itchy, that she is actively scratching during the interview; 2, 6 days SIGHTSEEING GUIDE, she had left facial and left arm numbness that lasted 2 days and resolved, without headache, without weakness; 3, 3 days SIGHTSEEING GUIDE, she had a headache that last 10 hours and resolved and did not have any associated symptoms; 4, She developed URI symptoms that lasted 24 hours, 5 days SIGHTSEEING GUIDE; 5, today she developed left sided "total numbness. I couldn't even move it, so I meditated and it got better but I was afraid I was in a Lupus flare or having another TIA" which led to her calling EMS. 18:19 She has had multiple presentation for the same, with all investigations non-diagnostic. pc She has had multiple CTs, MRIs and EEGs, all negative. She fired a local Neurologist because she was told her symptoms were psychosomatic, fired one in [place] for the same and now sees one in [place], who she reports, has again has found nothing to explain her reported symptoms. When asked why she believes them to be Lupus flares, she says her [employer] in [place] tells her that "must be the problem and he tells me to go the ED".. Historical: - Allergies: Bactrim (Vomit); Dilaudid (Hives); Fentanyl (Swelling); Plaquenil (Vomit); SULFA (SULFONAMIDES) (Hives); - Home Meds: 1. Albuterol Inhl 3 mL every 4 hours as needed 2. albuterol sulfate 90 mcg/actuation Inhl HFAA 2 puffs every 4 hours 3. Bystolic 10 mg oral tab 1 tab once daily 4. chlorthalidone 25 mg Oral tab 1 tab once daily 5. clopidogrel 75 mg oral tab 1 tab once daily 6. Crestor 40 mg Oral tab 1 tab once daily 7. cyclobenzaprine 5 mg Oral tab 1 tab 3 times per day 8. Diovan 320 mg Oral tab 1 tab once daily 9. Flonase 50 mcg/actuation Nasal spsn 2 sprays once daily 10. glimepiride 4 mg Oral tab 2 tab once daily 11. Januvia 100 mg oral tab 1 tab once daily 12. Levemir FlexTouch 100 unit/mL (3 mL) subcutaneous inpn 80 units in am daily 13. Mag-Delay 64 mg oral TbER 2 tab twice a day 14. metformin 1,000 mg Oral tab 1 tab every evening with dinner 15. omeprazole 40 mg Oral cpDR 1 cap once daily 16. spironolactone 25 mg Oral tab 1 tab once daily 17. proair inhaler 2 puff daily as needed 18. symbicort 2 puff twice a day 19. Vitamin D3 oral weekly on Sundays - PMHx: Asthma; back pain; Hypercholesterolemia; Hypertension; Spinal Stenosis; Lupus coagulant positive; - PSHx: Left Shoulder; D&C; Tonsillectomy; Cesearean Section; Hysterectomy; Thoracic Laminectomy; Spinal Fusion; left arthroscopic knee; - The history from nurses notes was reviewed: and elements of the historical information I have obtained differs from that reported to nursing. - Social history: Smoking status: Patient states was never smoker of tobacco. No barriers to communication noted, The patient speaks fluent [place], Speaks appropriately for age. - Family history: Not pertinent. - : The pt / caregiver states he / she is on anticoagulants: Plavix. Home medication list is obtained from [employer] import data. - Hospitalizations: : The patient was recently seen at [facility], and discharged 3 month(s) ago, for similar complaints. - Exposure Risk Screening:: None identified. - Immunization history:: All immunizations up-to-date. - Social history:: the patient is a non-smoker, the patient does not drink alcohol. 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 pc Exam: 18:19 General Appearance: no acute distress, alert. pc 18:19 EENT: normal eye inspection, ears, nose and throat normal, pharynx normal, mucous membranes moist 18:19 Neck: The exam reveals no acute abnormalities. ROM is normal and painless. No nuchal rigidity is noted.. 18:19 Respiratory: no respiratory distress, normal breath sounds, chest non-tender. 18:19 CVS: regular pulse rate, regular rhythm, normal S1 and S2, no murmurs, strong peripheral pulses, normal capillary refill. 18:19 Abdomen: soft, non-tender, no organomegaly, normal bowel sounds. 18:19 Back: normal inspection. 18:19 Skin: skin color is normal, warm, dry, multiple round, scabbed over lesions on both arms, her neck and her abdomen. No drainage from any lesions. . 18:19 Extremities: The extremities have a grossly normal appearance, are non-tender, without acute ROM abnormalities. 18:19 Neuro: oriented x 3, cranial nerves normal as tested, no motor deficits, no sensory deficits, She stood, pivoted and sat on the stretcher without assistance. 18:19 Psych: normal mood, anxious, with constant digging her index fingers nails into her thumbs. Vital Signs: 17:54 BP 131 / 76; Pulse 110; Resp 18; Temp 98.6(TE); Pulse Ox 95% on R/A; Weight 104.33 kg / nb2 230.01 lbs (R); Height 5 ft. 11 in. (180.34 cm) (R); Pain 8/10; 19:43 BP 112 / 72; Pulse 94; Resp 18; Temp 96.8; Pulse Ox 99% on R/A; Pain 0/10; kas2 17:54 Body Mass Index 32.08 (104.33 kg, 180.34 cm) nb2 MDM: 18:12 Financial registration complete. jadyn 18:13 [facility] Payment Agreement was scanned into [employer] and attached to record. jadyn 18:19 Differential Diagnosis: Hx of lupus coagulant, not SLE; type 2 DM with poor control; pc HTN; DDD of cervical and lumbar spines; multiple somatic complaints that appear to be of a psychosomatic origin. Plan: labs. 18:20 CBC with Diff Ordered. EDMS 18:20 MED Profile Ordered. EDMS 18:20 A1C Ordered. EDMS 18:20 C Reactive Protein Ordered. EDMS 18:20 ESR Ordered. EDMS 19:05 CBC with Diff Reviewed. pc 19:05 MED Profile Reviewed. pc 19:05 A1C Reviewed. pc 19:05 C Reactive Protein Reviewed. pc 19:07 Ambulate Patient to Assess Patient Safety ordered. pc 19:07 Data reviewed: old medical records, vital signs, nurses notes, lab test results. Test pc interpretation: LAB - all labs as ordered have been reviewed, interpreted and considered in the overall management of the clinical presentation;. The patient has been re-examined and re-evaluated. The clinical presentation did not require any ED treatment or interventions. 19:53 CBC with Diff Reviewed. mm11 19:53 ESR Reviewed. [facility] 09/08 10:43 T-Sheet-- Draft Copy was scanned into [employer] and attached to record. Point of Care Testing: Blood Glucose: 09/07 19:05 Blood Glucose: 145 mg/dL; kc3 Ranges: Signatures: Dispatcher [employer] EDMS Alvin Mendez MD MD pc Barnhardt, Gloria, Reg Reg Westley Stock DO DO mm11 Urvashi Graff RN RN kc3 Beck, Gabriela gjb Smith, Kim, RN RN kas2 The chart was reviewed and I authenticate all verbal orders and agree with the evaluation and treatment provided.Corrections: (The following items were deleted from the chart) 18:32 17:59 PMHx: CVA (2015); kc3 pc 18:32 17:59 PMHx: Diabetes - NIDDM: controlled; kc3 pc 18:32 17:59 PMHx: Seizures; kc3 pc 18:38 17:59 PMHx: Lupus; kc3 pc 18:38 17:59 PMHx: TIA; kc3 pc Attachments: 18:13 [facility] Payment Agreement [facility] 09/08 10:43 T-Sheet-- Draft Copy gb Chart Complete MTDD
== END 2016-09-07 20:11 | disposition home or self-care (01) ==
LOC: M ED 17:41
DX: F45.0 Somatization disorder (principal); E11.9 Type 2 diabetes mellitus without complications; J45.909 Unspecified asthma, uncomplicated; I10 Essential (primary) hypertension; E78.00 Pure hypercholesterolemia, unspecified; M48.00 Spinal stenosis, site unspecified; D68.62 Lupus anticoagulant syndrome; Z79.899 Other long term (current) drug therapy; Z79.4 Long term (current) use of insulin; Z79.84 Long term (current) use of oral hypoglycemic drugs; Z79.51 Long term (current) use of inhaled steroids; Z88.1 Allergy status to other antibiotic agents; Z88.5 Allergy status to narcotic agent; Z88.2 Allergy status to sulfonamides; Z88.8 Allergy status to other drugs, medicaments and biological substances

== ENCOUNTER → 2016-09-29 | Outpatient (CLI) | payer BC ==
[2016-09-29 18:37] LABS: ALBUMIN 4.2 GM/DL (3.2-5.2); ALBUMIN/GLOBULIN RATIO 1.11 (1.00-1.93); ALKALINE PHOSPHATASE 94 U/L (45-117); ALT/SGPT 89 U/L (12-78); ANION GAP 11 MEQ/L (8-16); AST/SGOT 101 U/L (15-37); BILIRUBIN,TOTAL 0.6 MG/DL (0.2-1.0); BLOOD UREA NITROGEN 15 MG/DL (7-18); CALCIUM LEVEL 10.1 MG/DL (8.5-10.1); CARBON DIOXIDE LEVEL 31 MEQ/L (21-32); CHLORIDE LEVEL 98 MEQ/L (98-107); CHOLESTEROL LEVEL 185 MG/DL (<200); CREATININE FOR GFR 1.01 MG/DL (0.55-1.02); GLOMERULAR FILTRATION RATE > 60.0 (>58); GLUCOSE, FASTING 148 MG/DL (70-105); MAGNESIUM LEVEL 1.6 MG/DL (1.8-2.4); POTASSIUM SERUM 3.8 MEQ/L (3.5-5.1); SODIUM LEVEL 140 MEQ/L (136-145); TRIGLYCERIDES LEVEL 197 MG/DL (<150)
== END ==
LOC: M WUC 14:18
PROVIDERS: ATTEND Emergency Medicine
DX: E11.40 Type 2 diabetes mellitus with diabetic neuropathy, unspecified (principal); I10 Essential (primary) hypertension; E78.2 Mixed hyperlipidemia; E55.9 Vitamin D deficiency, unspecified

== ENCOUNTER → 2016-09-30 | Outpatient (REF) | payer BC | LOC: M WUC 12:04 | PROVIDERS: ATTEND Emergency Medicine | DX: E11.40 Type 2 diabetes mellitus with diabetic neuropathy, unspecified (principal); I10 Essential (primary) hypertension; E78.2 Mixed hyperlipidemia; E55.9 Vitamin D deficiency, unspecified; E83.42 Hypomagnesemia ==

== ENCOUNTER → 2016-10-03 | Outpatient (REF) | payer BC | END | disposition home or self-care (01) | LOC: M LAB REF 17:21 | PROVIDERS: ATTEND Emergency Medicine | DX: N39.0 Urinary tract infection, site not specified (principal) ==

== ENCOUNTER 2017-01-01 11:30 | Emergency (ER) | payer BC ==
[~2017-01-01] VITALS: Ht 180.3 cm; Wt 104.3 kg
[~2017-01-01 11:30] MED LIST changes: +CRES10TA32 PO; -ROSU10TA PO
[2017-01-01] MEDS ORDERED: JANU100T PO (11:54)
[2017-01-01 12:10] LABS: BASO % 0.8 % (0.0-1.0); EOS # 0.2 K/mm3 (0.0-0.50); EOS % 4.1 % (0.0-3.0); LARGE UNSTAINED CELL # 0.1 K/mm3 (0.0-0.4); LARGE UNSTAINED CELL % 1.8 % (0.0-4.0); LYMPH # 1.9 K/mm3 (1.5-4.5); LYMPH % 30.6 % (24.0-44.0); MEAN CORPUSCULAR HEMOGLOBIN 28.9 pg (27.0-33.0); MEAN CORPUSCULAR HGB CONC 33.6 g/dl (32.0-36.5); MONO # 0.3 K/mm3 (0.0-0.8); MONO % 5.2 % (0.0-5.0); NEUTROPHILS # 3.4 K/mm3 (1.8-7.7); NEUTROPHILS % 57.5 % (36.0-66.0); PLATELET COUNT, AUTOMATED 251 k/mm3 (150-450); RED CELL DISTRIBUTION WIDTH 13.6 % (11.5-14.5)
[2017-01-01 12:21] LABS: INR 0.94
[2017-01-01 12:27] LABS: ANION GAP 9 MEQ/L (8-16); BLOOD UREA NITROGEN 13 MG/DL (7-18); CALCIUM LEVEL 8.8 MG/DL (8.5-10.1); CARBON DIOXIDE LEVEL 25 MEQ/L (21-32); CHLORIDE LEVEL 106 MEQ/L (98-107); CREATININE FOR GFR 0.84 MG/DL (0.55-1.02); GLOMERULAR FILTRATION RATE > 60.0 (>58); GLUCOSE, FASTING 161 MG/DL (70-105); POTASSIUM SERUM 3.7 MEQ/L (3.5-5.1); SODIUM LEVEL 140 MEQ/L (136-145)
--- NOTE | 2017-01-01 13:35 | REP ---
CT BRAIN WITHOUT CONTRAST: CT brain is performed without IV contrast. Ventricles are normal in size and position. There is no midline shift. Vergara-white differentiation is well maintained. There is no acute hemorrhage. There is no extra-axial fluid collection. Bone window examination is unremarkable. IMPRESSION: Negative noncontrast CT brain. Signed by Mao Vergara MD 01/01/2017 07:57 P
--- NOTE | 2017-01-01 13:55 | REP ---
PORTABLE CHEST: AP portable view of the chest is performed and compared to prior study of 04/07/2016. There is mild cardiomegaly. There is no acute infiltrate. Mediastinal silhouette is unremarkable and unchanged. IMPRESSION: Mild cardiomegaly. No acute infiltrate. Signed by Mao Vergara MD 01/01/2017 07:57 P
[2017-01-01] MEDS ORDERED: NAPR500T PO (15:29)
[2017-01-01 15:34] VITALS: BP 178/85
[2017-01-01] MEDS ORDERED: NAPROXEN 250 MG TAB PO ONE (15:45)
--- NOTE | 2017-01-02 07:33 | REP ---
MRI BRAIN: Multiple axial and sagittal sequences performed without IV contrast. COMPARISON: 06/02/2016 The ventricles are normal in size and position. There is no midline shift. Tiny focal areas of hyperintensity are again seen in the periventricular white matter, unchanged, compatible with chronic minor small vessel ischemic changes. No acute infarct is seen. Brainstem and cerebellum appear unremarkable. 7th and 8th cranial nerve complexes appear unremarkable. No abnormal signal is seen in the region of the mastoids and paranasal sinuses. IMPRESSION: Stable minimal chronic small vessel ischemic changes. No acute intracranial pathology. Signed by Mao Vergara MD 01/02/2017 12:17 P
--- NOTE | 2017-01-02 07:36 | REP ---
MRI CERVICAL SPINE: TECHNIQUE: Sagittal and axial sequences obtained without IV contrast. COMPARISON: 10/12/2015 Vertebral bodies are normal in height and are well aligned. There is normal cervical lordosis. Once again, there is mild diffuse disc bulging at C5-6 and C6-7. This is unchanged. There is no significant disc herniation. There is no spinal stenosis or significant neural foraminal narrowing. The cervical spinal cord demonstrates normal signal. IMPRESSION: No change since the prior study of 10/12/2015. Mild diffuse disc bulging C5-6 and C6-7 unchanged. No new disc herniation or other acute pathology. Signed by Mao Vergara MD 01/02/2017 12:17 P
--- NOTE | 2017-01-02 20:54 | ECGEPIP ---
Stationary ECG Study [facility] - ED Test Date: 2017-01-01 Pat Name: NEEMA ANDERSON Department: Room: - Gender: F X Ray Nurse: elvia : 1965 Requested By: CHON Molina Order Number: [id number] Reading MD: Dominic Mesa Measurements Intervals [place] Rate: 65 P: 18 CO: 169 QRS: 19 QRSD: 81 T: 48 QT: 404 QTc: 423 Interpretive Statements SINUS RHYTHM CW 03/01/16 - RATE DECERASED Electronically Signed On 01-02-2017 20:54:11 EDT by Dominic Mesa
== END 2017-01-01 16:28 | disposition home or self-care (01) ==
LOC: EDBD 11:30 → M ED 12:52
DX: G62.9 Polyneuropathy, unspecified (principal); M50.222 Other cervical disc displacement at C5-C6 level; M50.223 Other cervical disc displacement at C6-C7 level; I10 Essential (primary) hypertension; E11.9 Type 2 diabetes mellitus without complications; E78.5 Hyperlipidemia, unspecified; D68.62 Lupus anticoagulant syndrome; M51.9 Unspecified thoracic, thoracolumbar and lumbosacral intervertebral disc disorder; Z79.899 Other long term (current) drug therapy; Z79.84 Long term (current) use of oral hypoglycemic drugs; Z79.4 Long term (current) use of insulin; Z88.2 Allergy status to sulfonamides; Z88.5 Allergy status to narcotic agent; Z88.8 Allergy status to other drugs, medicaments and biological substances; Z91.018 Allergy to other foods

== ENCOUNTER 2017-02-09 14:46 | Inpatient (IN) | payer BC ==
[~2017-02-09] VITALS: Ht 180.3 cm; Wt 112.1 kg
[~2017-02-09 14:46] MED LIST changes: +JANU100T PO; +NAPR500T PO
--- NOTE | 2017-02-09 15:55 | REP ---
HISTORY: Stroke-like symptoms. COMPARISON: 01/01/2017 Only a single frontal view was obtained using portable technique. The technique utilized in obtaining the radiograph has magnified the cardiac silhouette and accentuated the interstitial markings. The superior mediastinal structures are midline. The cardiac silhouette is unremarkable in size, shape, and position. The diaphragmatic surfaces of the lungs are regular, and the costophrenic angles are clear. The pulmonary mixon are clear. The imaged osseous structures are intact. IMPRESSION: There is no acute cardiopulmonary disease. No change from the prior exam. Signed by Rey Solis DO 02/09/2017 04:27 P
[2017-02-09 15:56] LABS: BASO % 0.7 % (0.0-1.0); EOS # 0.2 K/mm3 (0.0-0.50); EOS % 2.8 % (0.0-3.0); LARGE UNSTAINED CELL # 0.1 K/mm3 (0.0-0.4); LYMPH # 1.7 K/mm3 (1.5-4.5); LYMPH % 24.5 % (24.0-44.0); MEAN CORPUSCULAR HEMOGLOBIN 28.8 pg (27.0-33.0); MEAN CORPUSCULAR HGB CONC 33.7 g/dl (32.0-36.5); MEAN CORPUSCULAR VOLUME 85.7 fl (80.0-96.0); MONO # 0.3 K/mm3 (0.0-0.8); MONO % 4.4 % (0.0-5.0); NEUTROPHILS # 4.6 K/mm3 (1.8-7.7); NEUTROPHILS % 66.7 % (36.0-66.0); PLATELET COUNT, AUTOMATED 290 k/mm3 (150-450); RED CELL DISTRIBUTION WIDTH 12.5 % (11.5-14.5); WHITE BLOOD COUNT 6.9 K/mm3 (4.0-10.0)
--- NOTE | 2017-02-09 16:01 | REP ---
REASON: Possible CVA. COMPARISON: 17 prior brain CTs all reviewed, the first three 12/2005 and the latest 01/01/2017 all normal. TECHNIQUE: 4.5 mm contiguous transaxial sections were obtained from the skull base to the cerebral convexities with thin cuts through the posterior fossa without the administration of intravenous contrast. FINDINGS: The ventricles and sulci are consistent with the patient's age. There are no extra-axial fluid collections. There is no mass effect. The deep cerebral white matter is consistent with the patient's age. The orbital and petrous structures , cerebellopontine angles, and posterior fossa are unremarkable. The sella turcica, cavernous, and paracavernous structures are essentially unremarkable. The visualized portions of the paranasal sinuses and mastoid air cells are clear. Images of the skull base show no gross abnormality. IMPRESSION: Essentially unremarkable CT examination of the brain. No change compared to the prior 17 brain CTs. It should be stated that since 2005 this patient has had [address] scans. Signed by Rey Solis DO 02/09/2017 04:28 P
[2017-02-09] MEDS ORDERED: NS 1,000 ML IV ONE (16:15)
[2017-02-09 16:35] LABS: INR 0.97
[2017-02-09 16:42] LABS: CONTROL LINE HCG INT CTR LINE PRESENT
[2017-02-09 16:52] LABS: ALBUMIN 3.5 GM/DL (3.2-5.2); ALBUMIN/GLOBULIN RATIO 1.03 (1.00-1.93); ALKALINE PHOSPHATASE 85 U/L (45-117); ALT/SGPT 56 U/L (12-78); ANION GAP 9 MEQ/L (8-16); AST/SGOT 48 U/L (15-37); BILIRUBIN,DIRECT 0.1 MG/DL (0.0-0.2); BILIRUBIN,TOTAL 0.4 MG/DL (0.2-1.0); BLOOD UREA NITROGEN 13 MG/DL (7-18); CARBON DIOXIDE LEVEL 27 MEQ/L (21-32); CHLORIDE LEVEL 103 MEQ/L (98-107); CREATININE FOR GFR 0.85 MG/DL (0.55-1.02); GLOMERULAR FILTRATION RATE > 60.0 (>58); GLUCOSE, FASTING 216 MG/DL (70-105); POTASSIUM SERUM 3.7 MEQ/L (3.5-5.1); SODIUM LEVEL 139 MEQ/L (136-145); TOTAL PROTEIN 6.9 GM/DL (6.4-8.2)
[2017-02-09] MEDS ORDERED: OMEP20CA3 PO (16:52)
[2017-02-09] MEDS ORDERED: FLUTICASONE PROP 0.05% NASAL SPRAY 16 GM (FLONASE) PRN (19:15)
[2017-02-09] MEDS ORDERED: POLYVINYL ALCOHOL OPHTH SOLN 15 ML(LIQUITEARS) OU PRN (19:15)
[2017-02-09] MEDS ORDERED: ONDANSETRON 4MG/2ML VIAL (J2405) IV PRN (19:30)
[2017-02-09] MEDS ORDERED: IPRATROPIUM 0.5MG/ALBUTEROL 2.5MG INH SOL UD 3ML (DUONEB)(J7620) NEB PRN (19:45)
[2017-02-09] MEDS: NS 1,000 ML IV SCH (20:00)
[2017-02-09] MEDS ORDERED: DEXTROSE 50% 50 ML SYRINGE IV PRN (20:00)
[2017-02-09] MEDS ORDERED: GLUCOSE 4 GM CHEW TABLET PO PRN (20:00)
[2017-02-09] MEDS ORDERED: GLUCAGON FOR INJ 1 MG VIAL (J1610) SC PRN (20:00)
--- NOTE | 2017-02-09 20:05 | HPEPDOC ---
General Date of Admission Feb 09, 2017 at 19:29 Primary Care Physician: JERROD BYERS MD Attending Physician: PRABHU VARELA DO Chief Complaint The patient is a 51-year-old female admitted with a reason for visit of Diarrhea ;Weakness. Source: Patient, Other () History of Present Illness PRIMARY CARE PROVIDER: Dr. Jerrod Byers CHIEF COMPLAINT: bloody stool and weakness HISTORY OF PRESENT ILLNESS: 51 yo F with a PMH of asthma, IDDM 2, hypercholesterolemia, HTN, lupus, unexplained seizure hx, CVA, TIAs, spinal stenosis, hx of C. diff, is presenting today for chief complaint of bright red blood per rectum that began yesterday. Yesterday, diarrhea began at 1 PM in the afternoon until 6 or 7 PM. Had 5-6 bouts of diarrhea. States she also could not get warm, became very very cold with an inner chill. Started to have generalized numbness and teeth chattering rigors/chills. Denies fever. Also reports she woke up in the middle of the night, shaking all over and had a hard tongue bite on the middle anterior portion of her tongue. States there was little blood from the bite. Does not know whether her shaking was a seizure, and though her was sleeping next to her, her shaking was unwitnessed. She then went back to sleep after this episode and woke up later this AM around to 12. Got up, went to the bathroom, had a bowel movement. When she went to wipe herself, there was bright red blood on the toilet paper as well as in the toilet. Then, she had gotten herself back into the bed, and started to shake all over again. Had felt urge for diarrhea, had another BM with more blood which was the 2nd instance of BRBPR. After that, she had a 3rd bloody BM, but it was not as much as the first 2 bloody BMs, and was still shaking. During this time, she reports she also felt her speech was off with slurring of her speech, had some blurred vision that lasted ~ 1/2 hour (this has happened to her before when she had a stroke in 2014), started also having pain shooting down her L leg. After this episode, patient came to the [facility] ED. Has had no BMs since she came to the ED. States she gave a big urine sample with "stuff floating in her urine" and her urine was not clear. Upon ROS, patient states she has some weakness in her toes and hands (baseline from her CVA hx), feels fatigued, gets dizzy sitting up, has a mild headache which is R sided frontal to the base of the head and neck area, states she has a little more weakness on her L side than normal: L arm and L leg, L fingers and toes. Admits to tingling in the L arm, L leg, L side of the face, and numbness in the R and L fingertips and bilateral toes. Denies chest pain, SOB, nausea, vomiting, constipation, abdominal pain. Admits to neuropathy in her feet , diarrhea, slight burning sensation across the lower abdomen. Also states that she "felt like someone was pushing her head under water." States her appetite is ok. She has a stiff neck from the last 2 days and attributes this to her hx of spinal stenosis in the cervical region that she has all the way down her spine. Also admits to breaking out in sores in her arms and buttocks areas. There was a rectal exam done by the ED physician she states. PAST MEDICAL HISTORY: Asthma IDDM Hypercholesterolemia Severe HTN Lupus dx'ed in 2014 after she had a TIA Unexplained Seizures: ~6-7 R-sided CVA: 2 in 2015 with residual L-sided weakness TIAs: 1 or 2 small episodes in 2016 Spinal Stenosis Hx of C. Diff PAST SURGICAL HISTORY: Tonsillectomy L Shoulder Arthroscopy Hysterectomy Hx of Lumbar Fusion Spinal Cyst Removal L Knee Arthroscopy MEDICATIONS: Please see below for home med list. ALLERGIES: Sulfa drugs and bactrim: hives Dilaudid Fentanyl Patch: itchiness and GI upset. Plaquenil: races HR SOCIAL HISTORY: Lives at home with and 13 yo son. 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 Exposure to asbestos when 18 yo at high school Vaccinations up to date. Pets: 6 dogs, 3 cats, 1 horse. No recent sick contacts. Had [employer] Food Last Monday: cheese wontons, pola fish, fried sinhala donuts, and seafood: crab and cheese dish Never tobacco user/smoker, never drank EtOH, and never used illicit drugs. FAMILY HISTORY: Mother: Crohn's disease, hepatitis C, 4 years ago due to liver and kidney failure Father: Still alive, prostate cancer survivor 3 Elder Sisters in 60s: one with HTN, one with endometriosis, one with pre- stages of breast cancer Sisters and Dad: hypercholesterolemia 1 sister: hx of seizures No OK hx in family CODE STATUS: FULL CODE REVIEW OF SYSTEMS: All ROS negative except for that as stated above in HPI. PHYSICAL EXAMINATION: Initial ED Vitals: T: 98.7 BP: 179/91 RR: 18 P: 93 O2 Saturation: 95% room air General: Awake, alert, oriented x 3. NAD. Pleasant and cooperative female lying comfortably in bed. HEENT: Head: normocephalic, atraumatic. Eyes: sclera are nonicteric. EOMI not intact: when ask patient to follow my finger with eyes to the R, she cannot fully do this. Nose: No external lesions Throat: moist buccal mucosa Mouth: tongue without obvious trauma from bite Neck: Supple. No thyromegaly. No cervical LAD bilaterally. Respiratory: clear to auscultation bilaterally with no wheezes, rales, or rhonchi. Cardiovascular: regular rate and rhythm, with no murmurs, rubs or gallops. Abdomen: soft, obese abdomen, +tenderness to palpation of R upper and middle quadrant as well as LLQ. Nondistended, no hepatosplenomegaly appreciated. Bowel sounds hypoactive. Extremities: 4-5/5 strength in L upper and L lower extremities. 5/5 strength in R upper and lower extremities. + swelling around ankles and dorsum of feet bilaterally. Neurological: sensation not intact in L hand digits 2-5 and dorsum of L hand, dorsum of L foot. sensation intact in L lower leg, L upper thigh, L palm of hand , and L arm. Sensation intact in R upper and lower extremities bilaterally. Did not test all cranial nerves. CN 3, 4, 6 not fully intact as patient not able to follow my finger consistently. CN 9 intact. CN 5 and 7 intact but somewhat asymmetric when tested. Smile is asymmetric. Not strong when puffing out cheeks. CN 12 intact. Sensation diminished on L side of face and stronger on R side of face. +babinski sign bilateral feet. Integumentary: There are erythematous boils and skin abscesses present scattered from low back, to RUE, buttocks, and L posterior thigh. Vascular: +2 R PT pulse. Difficult to palpate R DP pulse, L DP and PT pulses. LABORATORY DATA: Please see below for full labs. CBC unremarkable. CMP: Fasting glucose 216. Lactic Acid: 3.0 AST: 48. Troponin I: (-) x 1. Coags: WNL. UA: pending. MICROBIOLOGY: Urine Cx pending Blood Cx x 2 pending GI panel pending ELECTROCARDIOGRAM: Sinus Rhythm at rate of 65. AL interval: 169. QRS duration: 81 QTc interval: 423 RADIOLOGY: CXR: no acute cardiopulmonary disease. Head CT without contrast: (-). Patient has had 17 prior brain CTs. ASSESSMENT: 51 yo F with a PMH significant for asthma, IDDM 2, hypercholesterolemia, HTN, lupus, unexplained seizure hx, CVA, TIAs, spinal stenosis, hx of C. diff, is presenting today for acute diarrhea with bright red blood per rectum and generalized weakness. 1. Acute Diarrhea with BRBPR: hgb WNL and stable. Continue to monitor CBCs. Await GI panel results to rule out infectious cause: patient went to [employer] and ate seafood. Make NPO and give IVF for now. Monitor clinically. 2. Lactic Acidosis: will follow up reflex lactic acid in 4 hours from first one. 3. Hx of TIA/CVA's with generalized weakness: Stable and chronic. CT scan of head (-). Continue to monitor clinically for any significantly new weakness. Pt has residual L sided weakness from prior CVAs. 4. DM: will restart home insulin detemir, will add ISS and fingersticks AC and HS. 5. Asthma: continue duonebs. 6. SLE: not on any chronic lupus medications. Monitor clinically. 7. HLD: continue rosuvastatin. 8. HTN: continue home BP medications with hold parameters. PLAN: Will admit to Med/Surg floor as patient is hemodynamically stable, to Dr. Dorsey' s service. Patient has hx of c. diff colitis so will obtain GI panel and follow up results when available. Blood cx and urine cx pending. DVT ppx: TEDs and SCDs for now. No pharmocologic ppx due to risk of worsening potential GI bleed. My preceptor for this patient encounter was Dr. Prabhu Varela, and was physically present in the building during the encounter and was fully available. As needed, all aspects of the patient interview, examination, medical decision making process, and medical care plan development were reviewed and approved by the preceptor. Preceptor is aware and concurs with the plan as stated in the body of this note and will attest to such by his/her cosignature. Home Medications Scheduled (First-Vancomycin 50) 50 Mg/Ml Sandy, 250 MG PO Q6H Please dispense supply for 9 more days Budesonide/Formoterol (Symbicort 160-4.5 Mcg/Act) 60 Puff/Inhaler Aers, 2 PUFF INH BID, (Reported) Chlorthalidone (Chlorthalidone) 25 Mg Tab, 25 MG PO DAILY, (Reported) Glimepiride (Glimepiride) 4 Mg Tab, 8 MG PO DAILY, (Reported) Insulin Detemir (Levemir) 1 Units/0.01 Ml Susp, 47 UNITS SC BID, (Reported) Magnesium Chloride (Mag64) 64 Mg Tabcr, 128 MG PO QHS, (Reported) Metformin Hydrochloride (Metformin HCl ER) 500 Mg Tab, 1,000 MG PO QHS, ( Reported) Multivitamins *[facility] STOCKED* (Thera M Plus *[facility] STOCKED*) 1 Tab Tab, 1 TAB PO DAILY, (Reported) Nebivolol (Bystolic) 10 Mg Tab, 10 MG PO DAILY, (Reported) Omeprazole (Omeprazole) 20 Mg Cap, 20 MG PO QAM, (Reported) Rosuvastatin Calcium (Rosuvastatin Calcium) 40 Mg Tab, 40 MG PO QHS, (Reported) Sitagliptin Phosphate (Januvia) 100 Mg Tab, 100 MG PO DAILY, (Reported) Spironolactone (Spironolactone) 25 Mg Tab, 25 MG PO DAILY, (Reported) Valsartan (Diovan) 320 Mg Tab, 320 MG PO DAILY, (Reported) Vitamin D (Drisdol) 50,000 Unit Cap, 50,000 UNIT PO MTHLY, (Reported) SUNDAYS Scheduled PRN (Flonase Allergy Relief) 50 Mcg/Act Spr, 2 SPRAYS NA DAILY PRN for ALLERGIES, ( Reported) Albuterol Sulfate (Ventolin Hfa) 200 Puff/8 Gm Aers, 2 PUFF INH Q4H PRN for SHORTNESS OF BREATH, (Reported) Artificial Tears (Artificial Tears) 1.4 % Sandy, 1 DROP OU QID PRN for DRY EYES, ( Reported) Allergies Coded Allergies: Fentanyl (Verified Allergy, Mild, RASH, 01/01/17) Hydromorphone (Verified Allergy, Mild, RASH, 01/01/17) Sulfa Drugs (Verified Allergy, Mild, hives with bactrim, 01/01/17) hives with bactrim Sulfamethoxazole w/Trimethoprim (Verified Allergy, Mild, hives, 01/01/17) Blueberry (Verified Allergy, Unknown, 10/12/10) Hydroxychloroquine (Verified Adverse Reaction, Intermediate, tachycardia, 01/01/17) Vital Signs Vital Signs Date Time Temp Pulse Resp B/P (MAP) Pulse Ox O2 Delivery O2 Flow Rate FiO2 02/09/17 19:50 146/93 (110) 02/09/17 19:21 76 95 02/09/17 18:51 18 Room Air 02/09/17 14:47 98.7 Laboratory Data Labs 24H Laboratory Tests 2 02/09/17 15:45: White Blood Count 6.9, Red Blood Count 4.43, Hemoglobin 12.8, Hematocrit 38.0, Mean Corpuscular Volume 85.7, Mean Corpuscular Hemoglobin 28.8, Mean Corpuscular Hemoglobin Concent 33.7, Red Cell Distribution Width 12.5, Platelet Count 290, Neutrophils (%) (Auto) 66.7H, Lymphocytes (%) (Auto) 24.5, Monocytes (%) (Auto) 4.4, Eosinophils (%) (Auto) 2.8, Basophils (%) (Auto) 0.7, Neutrophils # (Auto) 4.6, Lymphocytes # (Auto) 1.7, Monocytes # (Auto) 0.3, Eosinophils # (Auto) 0.2, Basophils # (Auto) 0.0, Large Unclassified Cells % 1.0 , Large Unclassified Cells # 0.1, Lactic Acid Level 3.0*H 02/09/17 16:19: Prothrombin Time 13.0, Prothromb Time International Ratio 0.97, Activated Partial Thromboplast Time 28.8, Anion Gap 9, Glomerular Filtration Rate > 60.0, Calcium Level 9.0, Aspartate Amino Transf (AST/SGOT) 48H, Alanine Aminotransferase (ALT/SGPT) 56, Alkaline Phosphatase 85, Total Bilirubin 0.4, Direct Bilirubin 0.1, Total Creatine Kinase 33, Creatine Kinase MB 1.0, Creatine Kinase MB Relative Index 3.03, Troponin I < 0.02, Total Protein 6.9, Albumin 3.5, Albumin/Globulin Ratio 1.03, Human Chorionic Gonadotropin, Qual NEGATIVE 02/09/17 17:45: Urine Appearance HAZY, Urine Color YELLOW, Urine pH 8.0, Urine Specific [place] 1.018, Urine Protein NEGATIVE, Urine Glucose (UA) 1+H, Urine Ketones TRACEH, Urine Urobilinogen 0.2, Urine Bilirubin NEGATIVE, Urine Leukocyte Esterase 3+H, Urine Blood 2+H, Urine Nitrite NEGATIVE, Urine WBC (Auto) 35H, Urine RBC (Auto) 6H, Urine Hyaline Casts (Auto) 0, Urine Bacteria (Auto) 1+H, Urine Squamous Epithelial Cells 3, Urine Mucus (Auto) SMALL, Urine Sperm (Auto) CBC/BMP Laboratory Tests 02/09/17 15:45 Red Blood Count 4.43, Mean Corpuscular Volume 85.7, Mean Corpuscular Hemoglobin 28.8, Mean Corpuscular Hemoglobin Concent 33.7, Red Cell Distribution Width 12.5 , Neutrophils (%) (Auto) 66.7 H, Lymphocytes (%) (Auto) 24.5, Monocytes (%) ( Auto) 4.4, Eosinophils (%) (Auto) 2.8, Basophils (%) (Auto) 0.7, Neutrophils # ( Auto) 4.6, Lymphocytes # (Auto) 1.7, Monocytes # (Auto) 0.3, Eosinophils # (Auto ) 0.2, Basophils # (Auto) 0.0 02/09/17 16:19 Microbiology Microbiology 02/09/17 Blood Culture, Received Pending 02/09/17 Blood Culture, Received Pending 02/09/17 Urine Culture, Received Pending Plan / VTE VTE Prophylaxis Ordered?: Yes (TEDs and SCDs) EVELIN BRAUNME-1 Feb 09, 2017 20:05
[2017-02-09] MEDS ORDERED: GASTROGRAFIN SOLUTION 30ML (Q9963) PO ONE ×2 (20:30)
[2017-02-09] MEDS ORDERED: ISOVUE-370 76% 100ML VIAL (Q9967) As Ordered ONE (20:37)
[2017-02-09] MEDS: LEVEMIR (INSULIN DETEMIR) 1 UNITS/0.01ML SC SCH (21:00)
[2017-02-09] MEDS: HumaLOG INSULIN (NovoLOG) PER UNIT SC SCH (21:00)
--- NOTE | 2017-02-09 22:10 | REPUSA ---
CT of the abdomen and pelvis with contrast Clinical statement: Pain. Technique: Multiple axial CT images were obtained from the base of the lungs through the floor of the pelvis utilizing 5 mm axial slices after administration of oral and nonionic intravenous contrast. C oronal and sagittal reconstructions were also obtained. Comparison: 05/31/2016. Findings: Chest: The visualized lung bases are clear. Abdomen: The spleen, pancreas, kidneys, gallbladder, and adrenal glands are unremarkable. A 8mm nonob structing stone remains in the right renal collecting system. A small simple cyst in the left kidney is unchanged. Diffuse low attenuation of the liver with diffuse enlargement is stable. The aorta is w ithin normal limits. There is no evidence of abdominal lymphadenopathy or ascites. Pelvis: The bowel is unremarkable, with no obstructive or inflammatory changes. The appendix is demetri l. The urinary bladder is within normal limits. The other pelvic structures appear grossly intact. Th ere is no evidence of pelvic lymphadenopathy or ascites. Bones: There are no suspicious osseous abnormalities seen. Posterior fusion at L4/L5 and L5/S1 is int act. Impression: 1. No focal bowel abnormality. No obstructive or inflammatory bowel changes. 2. Hepatomegaly with diffuse fatty infiltration of the liver. 3. Nonobstructing right renal nephrolithiasis. Simple left renal cyst.
[2017-02-09 22:20] VITALS: BP 150/92
[2017-02-09] MEDS: DOCUSATE SODIUM 100 MG CAP PO SCH (23:11)
[2017-02-09] MEDS: ROSUVASTATIN 10 MG TAB (CRESTOR) PO SCH (23:12)
[2017-02-09] MEDS: MAGNESIUM CHLORIDE 64 MG TABCR (SLO MAG) PO SCH (23:12)
[2017-02-10] MEDS: SYMBICORT 160/4.5MCG INHALER 6GM INH SCH ×3 (00:06→20:03)
[2017-02-10] MEDS: NS 1,000 ML IV SCH ×2 (02:47→08:43)
[2017-02-10 06:00] VITALS: BP 132/88
[2017-02-10 06:04] LABS: MEAN CORPUSCULAR HEMOGLOBIN 29.1 pg (27.0-33.0); MEAN CORPUSCULAR HGB CONC 34.1 g/dl (32.0-36.5); MEAN CORPUSCULAR VOLUME 85.3 fl (80.0-96.0); RED CELL DISTRIBUTION WIDTH 12.7 % (11.5-14.5); WHITE BLOOD COUNT 7.3 K/mm3 (4.0-10.0)
--- NOTE | 2017-02-10 06:04 | ECGEPIP ---
Stationary ECG Study [facility] - ED Test Date: 2017-02-09 Pat Name: NEEMA ANDERSON Department: Room: - Gender: F [employer] Load [employer]: faraz : [id number] Requested By: Dominic Mesa Order Number: [id number] Reading MD: Alvin Mendez Measurements Intervals [place] Rate: 81 P: 42 [place]: 188 QRS: 19 QRSD: 87 T: 43 QT: 366 QTc: 425 Interpretive Statements SINUS RHYTHM Electronically Signed On 02-10-2017 6:03:35 EDT by Alvin Mendez
[2017-02-10 06:17] LABS: ANION GAP 9 MEQ/L (8-16); BLOOD UREA NITROGEN 8 MG/DL (7-18); CALCIUM LEVEL 8.4 MG/DL (8.5-10.1); CARBON DIOXIDE LEVEL 25 MEQ/L (21-32); CHLORIDE LEVEL 109 MEQ/L (98-107); CREATININE FOR GFR 0.76 MG/DL (0.55-1.02); GLOMERULAR FILTRATION RATE > 60.0 (>58); GLUCOSE, FASTING 134 MG/DL (70-105); POTASSIUM SERUM 3.5 MEQ/L (3.5-5.1); SODIUM LEVEL 143 MEQ/L (136-145)
[2017-02-10] MEDS: NEBIVOLOL 5 MG TAB (BYSTOLIC) PO SCH (08:24)
[2017-02-10] MEDS: MULTIVITAMINS/MINERALS THERAP 1 TAB PO SCH (08:25)
[2017-02-10] MEDS: SPIRONOLACTONE 25 MG TAB PO SCH (08:25)
[2017-02-10] MEDS: LEVEMIR (INSULIN DETEMIR) 1 UNITS/0.01ML SC SCH ×2 (08:25→22:10)
[2017-02-10] MEDS: DOCUSATE SODIUM 100 MG CAP PO SCH ×2 (08:25→21:00)
[2017-02-10] MEDS: OMEPRAZOLE 20 MG CAP PO SCH (08:25)
[2017-02-10] MEDS: VALSARTAN 80 MG TAB (DIOVAN) PO SCH (08:25)
[2017-02-10] MEDS: CHLORTHALIDONE 25 MG TAB PO SCH (08:25)
[2017-02-10] MEDS: HumaLOG INSULIN (NovoLOG) PER UNIT SC SCH ×4 (08:26→21:00)
[2017-02-10 08:30] VITALS: BP 171/84
[2017-02-10 12:39] VITALS: BP 148/88
[2017-02-10 14:00] VITALS: BP 154/90
--- NOTE | 2017-02-10 15:38 | IPNPDOC ---
Text Note Date of Service The patient was seen on 02/10/17. NOTE Subjective: Patient is a 51 year old female with a PMHx of Asthma, IDDM2, DLP, HTN , Lupus (Dx 2014), Hx of TIA / CVA with mild Left sided weakness (2014), Seizures, Spinal stenosis and Hx of C. diff colitis who presented to the ER with complaints of diarrhea with blood and abdominal pain. Patient was admitted to medical surgical floor for possible gastroenteritis and lactic acidosis. Patient was seen and examined at the bedside. Currently she notes improvement in her abdominal pain. She has not had any nausea and vomiting with her liquid diet. Her diarrhea is resolving and has become less frequent, but remains loose / watery. Objective: Vitals (See below) General: Lying in bed, no acute distress, comfortable, AAOx3 HEENT: NC, AT CVS: RRR, +S1S2 Lungs: Fair air entry b/l, -w/r/r Abdomen: Soft, ND, Mild tenderness at lower quadrants bilaterally, +BSx4 Extremities: +PPx4, - Edema, - Calf tenderness Assessment and plan: 1. Diarrhea / Abdominal pain / Nausea & Vomiting - likely 2/2 gastroenteritis - Presented with abdominal pain, associated with bloody diarrhea and nausea + vomiting - Symptoms have improved from admission - Physical currently reveals mild lower quadrant abdominal pain bilaterally - No leukocytosis, s/p Lactic acidosis - Cultures remain pending, GI panel pending - UA is abnormal - however no symptoms of UTI - Will repeat Urine culture (re: contamination) - Will advance diet as tolerated 2. s/p Lactic acidosis - s/p IV fluid hydration 3. Asthma - c/w Duoneb PRN, Symbicort 4. IDDM2 - c/w ISS and Levemir 5. DLP - c/w Rosuvastatin 6. HTN - c/w Valsartan, Spironolactone, Chlorthalidone, Nebivolol 7. Lupus (Dx 2014) - Reports that she is no longer on immunosuppressive therapy - Follows with Rheumatology in [place] 8. Hx of TIA / CVA with mild Left sided weakness (2014) - CT head 02/09: unremarkable - No acute abnormalities noted today 9. Seizures 10. Spinal stenosis 11. Hx of C. diff colitis - will f/u GI panel 12. GERD - c/w omeprazole 13. DVT prophylaxis - c/w SCDs VS,Fishbone, I+O VS, Fishbone, I+O Laboratory Tests 02/09/17 15:45 Red Blood Count 4.43, Mean Corpuscular Volume 85.7, Mean Corpuscular Hemoglobin 28.8, Mean Corpuscular Hemoglobin Concent 33.7, Red Cell Distribution Width 12.5 , Neutrophils (%) (Auto) 66.7 H, Lymphocytes (%) (Auto) 24.5, Monocytes (%) ( Auto) 4.4, Eosinophils (%) (Auto) 2.8, Basophils (%) (Auto) 0.7, Neutrophils # ( Auto) 4.6, Lymphocytes # (Auto) 1.7, Monocytes # (Auto) 0.3, Eosinophils # (Auto ) 0.2, Basophils # (Auto) 0.0 02/09/17 16:19 02/10/17 05:39 Red Blood Count 3.91 L, Mean Corpuscular Volume 85.3, Mean Corpuscular Hemoglobin 29.1, Mean Corpuscular Hemoglobin Concent 34.1, Red Cell Distribution Width 12.7, Calcium Level 8.4 L Vital Signs Date Time Temp Pulse Resp B/P (MAP) Pulse Ox O2 Delivery O2 Flow Rate FiO2 02/10/17 14:00 98.6 77 18 154/90 (111) 97 Room Air I&O- Last 24 Hours up to 6 AM 02/10/17 05:59 Intake Total 2860 ml Output Total 650 ml Balance 2210 ml WILLIAM DWYER MD Feb 10, 2017 15:37
[2017-02-10] MEDS: VANCOMYCIN ORAL SOL 250MG/5ML ORAL SYRINGE PO SCH (19:39)
[2017-02-10 22:00] VITALS: BP 124/76
[2017-02-10] MEDS: MAGNESIUM CHLORIDE 64 MG TABCR (SLO MAG) PO SCH (22:14)
[2017-02-10] MEDS: ROSUVASTATIN 10 MG TAB (CRESTOR) PO SCH (22:15)
[2017-02-10] MEDS: ACETAMINOPHEN TAB 650MG DOSE (2X325MG) PO PRN (22:15)
[2017-02-11] MEDS: VANCOMYCIN ORAL SOL 250MG/5ML ORAL SYRINGE PO SCH ×5 (00:31→23:18)
[2017-02-11 06:00] VITALS: BP 130/90
[2017-02-11 06:55] LABS: MEAN CORPUSCULAR HEMOGLOBIN 29.1 pg (27.0-33.0); MEAN CORPUSCULAR HGB CONC 34.2 g/dl (32.0-36.5); MEAN CORPUSCULAR VOLUME 84.9 fl (80.0-96.0); RED CELL DISTRIBUTION WIDTH 12.9 % (11.5-14.5); WHITE BLOOD COUNT 6.1 K/mm3 (4.0-10.0)
[2017-02-11 06:56] LABS: ANION GAP 9 MEQ/L (8-16); BLOOD UREA NITROGEN 12 MG/DL (7-18); CARBON DIOXIDE LEVEL 26 MEQ/L (21-32); CHLORIDE LEVEL 106 MEQ/L (98-107); CREATININE FOR GFR 0.89 MG/DL (0.55-1.02); GLOMERULAR FILTRATION RATE > 60.0 (>58); GLUCOSE, FASTING 217 MG/DL (70-105); POTASSIUM SERUM 3.7 MEQ/L (3.5-5.1); SODIUM LEVEL 141 MEQ/L (136-145)
[2017-02-11] MEDS: NEBIVOLOL 5 MG TAB (BYSTOLIC) PO SCH (08:42)
[2017-02-11] MEDS: MULTIVITAMINS/MINERALS THERAP 1 TAB PO SCH (08:42)
[2017-02-11] MEDS: OMEPRAZOLE 20 MG CAP PO SCH (08:42)
[2017-02-11] MEDS: SPIRONOLACTONE 25 MG TAB PO SCH (08:42)
[2017-02-11] MEDS: CHLORTHALIDONE 25 MG TAB PO SCH (08:43)
[2017-02-11] MEDS: DOCUSATE SODIUM 100 MG CAP PO SCH ×2 (08:43→20:50)
[2017-02-11] MEDS: VALSARTAN 80 MG TAB (DIOVAN) PO SCH (08:43)
[2017-02-11] MEDS: HumaLOG INSULIN (NovoLOG) PER UNIT SC SCH ×4 (08:44→20:50)
[2017-02-11] MEDS: LEVEMIR (INSULIN DETEMIR) 1 UNITS/0.01ML SC SCH ×2 (08:44→20:49)
[2017-02-11] MEDS: SYMBICORT 160/4.5MCG INHALER 6GM INH SCH ×2 (08:48→19:23)
--- NOTE | 2017-02-11 11:26 | IPNPDOC ---
Text Note Date of Service The patient was seen on 02/11/17. NOTE Subjective: Patient is a 51 year old female with a PMHx of Asthma, IDDM2, DLP, HTN , Lupus (Dx 2014), Hx of TIA / CVA with mild Left sided weakness (2014), Seizures, Spinal stenosis and Hx of C. diff colitis who presented to the ER with complaints of diarrhea with blood and abdominal pain. Patient was admitted to medical surgical floor for possible gastroenteritis and lactic acidosis. Patient was seen and examined at the bedside. She notes full resolution of her abdominal pain, nausea and vomiting. She notes that her diarrhea has been resolving. Her last bowel movement was yesterday evening. Objective: Vitals (See below) General: Lying in bed, no acute distress, comfortable, AAOx3 HEENT: NC, AT CVS: RRR, +S1S2 Lungs: Fair air entry b/l, -w/r/r Abdomen: Soft, ND, Mild tenderness at lower quadrants bilaterally, +BSx4 Extremities: +PPx4, - Edema, - Calf tenderness Assessment and plan: 1. s/p Diarrhea / Abdominal pain / Nausea & Vomiting - likely 2/2 C. diff colitis - Presented with abdominal pain, associated with bloody diarrhea and nausea + vomiting - Symptoms have improved from admission - Physical currently reveals mild lower quadrant abdominal pain bilaterally - No leukocytosis, s/p Lactic acidosis - GI panel positive for C. diff colitis - UA is abnormal - however no symptoms of UTI - Tolerating regular diet - c/w Vanco 250 PO Q6H 2. s/p Lactic acidosis - s/p IV fluid hydration 3. Asthma - c/w Duoneb PRN, Symbicort 4. IDDM2 - c/w ISS and Levemir 5. DLP - c/w Rosuvastatin 6. HTN - c/w Valsartan, Spironolactone, Chlorthalidone, Nebivolol 7. Lupus (Dx 2014) - Reports that she is no longer on immunosuppressive therapy - Follows with Rheumatology in [place] 8. Hx of TIA / CVA with mild Left sided weakness (2014) - CT head 02/09: unremarkable - No acute abnormalities noted today 9. Seizures 10. Spinal stenosis 11. GERD - c/w omeprazole 12. DVT prophylaxis - c/w SCDs VS,Fishbone, I+O VS, Fishbone, I+O Laboratory Tests 02/11/17 06:30 Red Blood Count 4.06, Mean Corpuscular Volume 84.9, Mean Corpuscular Hemoglobin 29.1, Mean Corpuscular Hemoglobin Concent 34.2, Red Cell Distribution Width 12.9 , Calcium Level 9.0 Vital Signs Date Time Temp Pulse Resp B/P (MAP) Pulse Ox O2 Delivery O2 Flow Rate FiO2 02/11/17 08:42 87 130/90 02/11/17 06:00 96.8 16 93 Room Air I&O- Last 24 Hours up to 6 AM 02/11/17 06:00 Intake Total 3900 ml Output Total 2075 ml Balance 1825 ml WILLIAM DWYER MD Feb 11, 2017 11:26
[2017-02-11 14:00] VITALS: BP 152/88
[2017-02-11] MEDS: ACETAMINOPHEN TAB 650MG DOSE (2X325MG) PO PRN (16:29)
[2017-02-11] MEDS: ROSUVASTATIN 10 MG TAB (CRESTOR) PO SCH (20:49)
[2017-02-11] MEDS: MAGNESIUM CHLORIDE 64 MG TABCR (SLO MAG) PO SCH (20:49)
[2017-02-11 22:00] VITALS: BP 134/80
[2017-02-12] MEDS: ACETAMINOPHEN TAB 650MG DOSE (2X325MG) PO PRN (04:52)
[2017-02-12] MEDS: VANCOMYCIN ORAL SOL 250MG/5ML ORAL SYRINGE PO SCH ×2 (05:52→11:52)
[2017-02-12 06:00] VITALS: BP 134/88
[2017-02-12 06:22] LABS: MEAN CORPUSCULAR HGB CONC 33.5 g/dl (32.0-36.5); MEAN CORPUSCULAR VOLUME 86.5 fl (80.0-96.0); RED CELL DISTRIBUTION WIDTH 12.7 % (11.5-14.5); WHITE BLOOD COUNT 8.7 K/mm3 (4.0-10.0)
[2017-02-12 06:35] LABS: ANION GAP 7 MEQ/L (8-16); BLOOD UREA NITROGEN 14 MG/DL (7-18); CALCIUM LEVEL 9.3 MG/DL (8.5-10.1); CARBON DIOXIDE LEVEL 27 MEQ/L (21-32); CHLORIDE LEVEL 103 MEQ/L (98-107); CREATININE FOR GFR 0.98 MG/DL (0.55-1.02); GLOMERULAR FILTRATION RATE > 60.0 (>58); GLUCOSE, FASTING 205 MG/DL (70-105); POTASSIUM SERUM 3.6 MEQ/L (3.5-5.1); SODIUM LEVEL 137 MEQ/L (136-145)
[2017-02-12] MEDS: SYMBICORT 160/4.5MCG INHALER 6GM INH SCH (07:47)
[2017-02-12] MEDS: OMEPRAZOLE 20 MG CAP PO SCH (07:55)
[2017-02-12] MEDS: MULTIVITAMINS/MINERALS THERAP 1 TAB PO SCH (07:55)
[2017-02-12] MEDS: CHLORTHALIDONE 25 MG TAB PO SCH (07:55)
[2017-02-12] MEDS: SPIRONOLACTONE 25 MG TAB PO SCH (07:55)
[2017-02-12 07:56] VITALS: BP 134/88
[2017-02-12] MEDS: DOCUSATE SODIUM 100 MG CAP PO SCH (07:56)
[2017-02-12] MEDS: VALSARTAN 80 MG TAB (DIOVAN) PO SCH (07:56)
[2017-02-12] MEDS: NEBIVOLOL 5 MG TAB (BYSTOLIC) PO SCH (07:56)
[2017-02-12] MEDS: HumaLOG INSULIN (NovoLOG) PER UNIT SC SCH ×2 (07:57→11:53)
[2017-02-12] MEDS: LEVEMIR (INSULIN DETEMIR) 1 UNITS/0.01ML SC SCH (07:57)
[2017-02-12] MEDS ORDERED: FIRS1SOL3 PO ×2 (09:49→11:27)
--- NOTE | 2017-02-12 15:31 | DSES ---
DATE OF ADMISSION: 02/09/2017 DATE OF DISCHARGE: 02/12/2017 PRIMARY CARE PHYSICIAN: Jerrod Wilkinson. REFERRING PHYSICIAN: None. CONSULTING PHYSICIAN: None. CONDITION ON DISCHARGE: Stable. FINAL DIAGNOSIS: Diarrhea, likely secondary to Clostridium (C.) difficile colitis. PROCEDURES: None. HISTORY OF PRESENT ILLNESS: The patient is a 51-year-old female with a past medical history of asthma, insulin-dependent diabetes mellitus type 2, dyslipidemia, hypertension, lupus diagnosed in 2014, history of transient ischemic attack (TIA)/cerebrovascular accident (CVA) with mild left-sided weakness in 2014, seizures, spinal stenosis and history of C. difficile colitis in the past, who presented to the emergency room (ER) with complaints of diarrhea with blood and abdominal pain. The patient was admitted to the medical/surgical floor for possible gastroenteritis and lactic acidosis. HOSPITAL COURSE: 1. Status post diarrhea, abdominal pain, nausea, vomiting, likely secondary to C. Difficile colitis, presented with abdominal pain and associated bloody diarrhea, nausea, vomiting. Symptoms have improved throughout her hospital course. Physical currently reveals no abdominal pain. The leukocytosis was never present. The patient has lactic acidosis that has resolved. Gastrointestinal (GI) panel is positive for C. difficile colitis. Urinalysis (UA) was abnormal initially; however, repeat has been normal. She has been tolerating a regular diet and the patient's diarrhea has improved after starting vancomycin orally. Upon discharge, the patient has been given a prescription for completion of vancomycin for a total of 10 days duration. Pharmacy has been contacted for approval. 2. Status post lactic acidosis, status post intravenous (IV) fluid hydration. 3. Asthma. Continue with DuoNeb as needed and Symbicort. 4. Insulin-dependent diabetes mellitus type 2. Continue with insulin sliding scale and Levemir. 5. Dyslipidemia. Continue with rosuvastatin. 6. Hypertension. Continue with valsartan, spironolactone, chlorthalidone, and nebivolol. 7. Lupus diagnosed in 2014. Reports that she is no longer on any immunosuppressive therapy. Follows with rheumatology in [place]. 8. History of TIA/CVA with mild left-sided weakness in 2014. CT head 02/09/2017, was unremarkable. No acute abnormalities were noted. 9. Seizures. 10. Spinal stenosis. 11. Gastroesophageal reflux disease. Continue with omeprazole. 12. Deep venous thrombosis (DVT) prophylaxis. She has been on sequential compression devices. DISCHARGE MEDICATIONS The patient will be discharged home on the following medications: - albuterol two puffs inhaled every four hours as needed for shortness of breath - artificial tears one drop in each eye four times a day as needed for dry eyes - Symbicort two puffs inhaled twice a day - chlorthalidone 25 mg by mouth daily - Flonase two sprays in each nostril daily - glimepiride 8 mg by mouth daily - insulin Levemir 47 units subcutaneous twice a day - magnesium chloride 128 mg by mouth at bedtime - metformin 1000 mg by mouth at bedtime - multivitamin one tablet by mouth daily - nebivolol 10 mg by mouth daily - omeprazole 20 mg by mouth every morning - rosuvastatin 40 mg by mouth at bedtime - sitagliptin 100 mg by mouth daily - spironolactone 25 mg by mouth daily - valsartan 320 mg by mouth daily - vitamin D 50,000 units by mouth monthly New medications prescribed include vancomycin 250 mg by mouth every six hours for the next nine days. DISCHARGE INSTRUCTIONS: The patient has been advised to followup with her primary care provider within the next seven days. She has been advised to remain compliant with her treatment and medications, and return to the emergency room if she experiences any problems. TIME SPENT ON DISCHARGE: 35 minutes.
== END 2017-02-12 12:30 | disposition home or self-care (01) | DRG 248 ==
LOC: M ED 16:26 → M ED INP 19:29 → M MSPAV 22:19
PROVIDERS: ADMIT Hospitalist; ATTEND Internal Medicine
DX: A04.7 Enterocolitis due to Clostridium difficile (principal); E87.2 Acidosis; M32.9 Systemic lupus erythematosus, unspecified; R56.9 Unspecified convulsions; I69.354 Hemiplegia and hemiparesis following cerebral infarction affecting left non-dominant side; E11.9 Type 2 diabetes mellitus without complications; I10 Essential (primary) hypertension; K62.5 Hemorrhage of anus and rectum; J45.909 Unspecified asthma, uncomplicated; E78.5 Hyperlipidemia, unspecified; K21.9 Gastro-esophageal reflux disease without esophagitis; Z79.899 Other long term (current) drug therapy; Z88.2 Allergy status to sulfonamides; Z88.8 Allergy status to other drugs, medicaments and biological substances; Z79.4 Long term (current) use of insulin; Z91.018 Allergy to other foods; M48.00 Spinal stenosis, site unspecified

== ENCOUNTER 2017-03-03 13:29 | Emergency (ER) | payer BC ==
[~2017-03-03] VITALS: Ht 180.3 cm; Wt 109.5 kg
[~2017-03-03 13:29] MED LIST changes: +FIRS1SOL3 PO; +HYDR-643 PO; -HYDR10T PO; +LEVA1TAB2 PO; -LEVA500T PO; -METF1000 PO; +METF10004 PO
[2017-03-03] MEDS ORDERED: MORPHINE 4 MG/ML 1ML SYRINGE IV ONE ×3 (14:15→19:00)
[2017-03-03] MEDS ORDERED: ONDANSETRON 4MG/2ML VIAL (J2405) IV ONE ×2 (14:15→17:15)
[2017-03-03 14:27] LABS: BASO % 0.8 % (0.0-1.0); EOS # 0.3 K/mm3 (0.0-0.50); EOS % 4.4 % (0.0-3.0); LARGE UNSTAINED CELL # 0.1 K/mm3 (0.0-0.4); LARGE UNSTAINED CELL % 1.4 % (0.0-4.0); LYMPH # 1.7 K/mm3 (1.5-4.5); LYMPH % 25.7 % (24.0-44.0); MEAN CORPUSCULAR HEMOGLOBIN 28.3 pg (27.0-33.0); MEAN CORPUSCULAR HGB CONC 33.1 g/dl (32.0-36.5); MEAN CORPUSCULAR VOLUME 85.4 fl (80.0-96.0); MONO # 0.3 K/mm3 (0.0-0.8); MONO % 4.4 % (0.0-5.0); NEUTROPHILS # 4.3 K/mm3 (1.8-7.7); NEUTROPHILS % 63.3 % (36.0-66.0); PLATELET COUNT, AUTOMATED 268 k/mm3 (150-450); WHITE BLOOD COUNT 6.7 K/mm3 (4.0-10.0)
[2017-03-03] MEDS: NS 1,000 ML IV SCH ×2 (14:29→19:42)
[2017-03-03 14:54] LABS: ALBUMIN 3.7 GM/DL (3.2-5.2); ALBUMIN/GLOBULIN RATIO 1.12 (1.00-1.93); ALKALINE PHOSPHATASE 88 U/L (45-117); ALT/SGPT 64 U/L (12-78); ANION GAP 8 MEQ/L (8-16); AST/SGOT 66 U/L (15-37); BILIRUBIN,DIRECT 0.1 MG/DL (0.0-0.2); BILIRUBIN,TOTAL 0.5 MG/DL (0.2-1.0); BLOOD UREA NITROGEN 9 MG/DL (7-18); CALCIUM LEVEL 9.3 MG/DL (8.5-10.1); CARBON DIOXIDE LEVEL 25 MEQ/L (21-32); CHLORIDE LEVEL 105 MEQ/L (98-107); CREATININE FOR GFR 0.88 MG/DL (0.55-1.02); GLOMERULAR FILTRATION RATE > 60.0 (>58); GLUCOSE, FASTING 202 MG/DL (70-105); SODIUM LEVEL 138 MEQ/L (136-145)
--- NOTE | 2017-03-03 15:26 | REP ---
Chest x-ray: Two views. History: Chest pain. Shortness of breath. Comparison chest x-ray February 09, 2017. Findings: EKG monitoring electrodes overlie the chest. The lungs are well inflated and free of infiltrate. The pleural angles are sharp. Heart size is normal. No significant bony abnormality is seen. Impression: Unremarkable chest x-ray. Signed by Emanuel Dai MD 03/03/2017 04:19 P
[2017-03-03] MEDS ORDERED: GASTROGRAFIN SOLUTION 30ML (Q9963) As Ordered ONE (15:40)
[2017-03-03] MEDS ORDERED: GASTROGRAFIN SOLUTION 30ML (Q9963) PO ONE (15:45)
[2017-03-03] MEDS ORDERED: GASTROGRAFIN SOLUTION 30ML PO ONE (16:15)
[2017-03-03] MEDS ORDERED: ISOVUE-370 76% 100ML VIAL (Q9967) As Ordered ONE (17:28)
[2017-03-03] MEDS ORDERED: NITROFURANTOIN (MACROBID) 100 MG CAP PO ONE (19:30)
[2017-03-03] MEDS ORDERED: OXYCODONE/APAP 5MG/325MG(BULK FOR ED) 1 TABLET PO ONE (19:30)
[2017-03-03] MEDS ORDERED: MACR100C43 PO (19:45)
[2017-03-03 19:48] VITALS: BP 141/83
[2017-03-03] MEDS ORDERED: PERC5TAB12 PO (19:52)
--- NOTE | 2017-03-03 21:32 | REP ---
CT ABDOMEN AND PELVIS WITH CONTRAST: HISTORY: Left lower quadrant pain. CONTRAST: Isovue-370 100 mL. COMPARISON: 02/09/2017 There is fatty infiltration of the liver. A calcification is present in the right kidney consistent with nephrolithiasis. A 1.4 cm cyst is present in the left kidney. A 1 cm cyst is present in the spleen. A 1.3 cm mass is present in the left adrenal gland. This most likely represents an adenoma. The gallbladder and pancreas are normal in appearance. There is no mass, adenopathy, or free fluid. Linear density is present in the left lower lobe consistent with scar. A small amount of edema is present in the anterior subcutaneous tissue. IMPRESSION: 1. Fatty infiltration of the liver. 2. Right nephrolithiasis. 3. 1.4 cm left renal cyst. 4. 1.3 cm left adrenal adenoma. 5. Left lower lobe scar. CT PELVIS: The patient is status-post hysterectomy. The urinary bladder is normal in appearance. There is no mass, adenopathy, or free fluid. Degenerative change is present in the spine. Interspinous spacers are present at the L4-5 and L5-S1 levels. IMPRESSION: The patient is status-post hysterectomy. Signed by Javier Vyas MD 03/04/2017 07:56 A
--- NOTE | 2017-03-03 21:36 | ECGEPIP ---
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
== END 2017-03-03 20:15 | disposition home or self-care (01) ==
LOC: M ED 13:29
DX: N39.0 Urinary tract infection, site not specified (principal); I10 Essential (primary) hypertension; E11.9 Type 2 diabetes mellitus without complications; J45.909 Unspecified asthma, uncomplicated; E78.5 Hyperlipidemia, unspecified; D68.62 Lupus anticoagulant syndrome; R56.9 Unspecified convulsions; Z86.73 Personal history of transient ischemic attack (TIA), and cerebral infarction without residual deficits; Z79.899 Other long term (current) drug therapy; Z79.4 Long term (current) use of insulin; Z88.2 Allergy status to sulfonamides; Z88.5 Allergy status to narcotic agent; Z88.8 Allergy status to other drugs, medicaments and biological substances; Z91.018 Allergy to other foods
CPT/HCPCS: 71020; 74177; 80048; 80076; 81001; 82550; 82553; 83690; 85025; 87088; 87186; 93005; 93041; 94760; 96374; 96375; 96376; 99285; J2405; Q9963; Q9967

== ENCOUNTER → 2017-07-06 | Outpatient (CLI) | payer BC ==
[~2017-07-06] MED LIST changes: +MACR100C43 PO; +PERC5TAB12 PO
--- NOTE | 2017-07-07 08:20 | REP ---
Pain with recent trauma. Technique: AP, lateral, bilateral oblique and sunrise views of the left knee. Findings: Moderate tricompartmental osteoarthritic degenerative changes include subchondral sclerosis joint space narrowing and marginal spurring/osteophyte formation. No definite effusion. No definite acute fracture or dislocation. Impression: Moderate tricompartmental degenerative changes. No obvious acute fracture or dislocation. Signed by Wilbert Marcus MD 07/07/2017 08:12 A
== END ==
LOC: M WUC 17:14
PROVIDERS: ATTEND Physician Assistant
DX: M25.562 Pain in left knee (principal)

== ENCOUNTER 2017-12-17 17:56 | Emergency (ER) | payer BC ==
[2017-12-17 18:28] LABS: APPEARANCE, URINE MANUAL CLOUDY (CLEAR); COLOR, URINE MANUAL YELLOW (YELLOW)
[2017-12-17 18:29] LABS: BILIRUBIN, URINE MANUAL NEGATIVE (NEGATIVE); BLOOD URINE MANUAL POSITIVE (NEGATIVE); GLUCOSE, URINE (UA) MANUAL 1+(100 MG/DL) mg/dL (NEGATIVE); KETONE, URINE MANUAL NEGATIVE (NEGATIVE); LEUKOCYTE ESTERASE, URINE MAN POSITIVE (NEGATIVE); MICROSCOPIC INDICATED? MAN YES (NO); NITRITE, URINE MANUAL POSITIVE (NEGATIVE); PROTEIN, URINE MANUAL 1+ mg/dL (NEGATIVE); UROBILINOGEN, URINE MANUAL NORMAL (NORMAL)
[2017-12-17 18:31] LABS: RBC, URINE TNTC /hpf (0-3); SQUAMOUS EPITHELIAL CELL URINE MOD AMOUNT /hpf (SMALL AMT); WBC, URINE 30-40 /hpf (0-3)
[2017-12-17 18:32] LABS: BACTERIA, URINE LARGE AMOUNT; HYALINE CAST, URINE NONE SEEN /lpf (0-1); MICROSCOPIC EXAM PERFORMED
[2017-12-17 19:20] LABS: BASO # 0.1 10^3/uL (0.0-0.2); BASO % 0.8 % (0.0-1.0); EOS # 0.4 10^3/uL (0.0-0.50); EOS % 5.4 % (0.0-3.0); HEMATOCRIT 37.8 % (36.0-47.0); HEMOGLOBIN 12.5 g/dl (12.0-15.5); IMMATURE GRANULOCYTE % 0.4 % (0-3.0); LYMPH # 2.3 10^3/uL (1.5-4.5); LYMPH % 28.5 % (24.0-44.0); MEAN CORPUSCULAR HEMOGLOBIN 27.8 pg (27.0-33.0); MEAN CORPUSCULAR HGB CONC 33.1 g/dl (32.0-36.5); MONO # 0.5 10^3/uL (0.0-0.8); MONO % 6.2 % (0.0-5.0); NEUTROPHILS # 4.6 10^3/uL (1.8-7.7); NEUTROPHILS % 58.7 % (36.0-66.0); PLATELET COUNT, AUTOMATED 304 10^3/uL (150-450); RED CELL DISTRIBUTION WIDTH 13.1 % (11.5-14.5); WHITE BLOOD COUNT 7.9 10^3/uL (4.0-10.0)
[2017-12-17] MEDS: NS 1,000 ML IV (19:31)
[2017-12-17] MEDS: ONDANSETRON 4MG/2ML VIAL (J2405) IV (19:31)
[2017-12-17] MEDS: GASTROGRAFIN SOLUTION 30ML PO ×2 (19:40→20:09)
[2017-12-17 19:43] LABS: ALBUMIN 3.8 GM/DL (3.2-5.2); ALBUMIN/GLOBULIN RATIO 1.03 (1.00-1.93); ALKALINE PHOSPHATASE 85 U/L (45-117); ALT/SGPT 65 U/L (12-78); ANION GAP 6 MEQ/L (8-16); AST/SGOT 51 U/L (7-37); BILIRUBIN,DIRECT 0.1 MG/DL (0.0-0.2); BILIRUBIN,TOTAL 0.5 MG/DL (0.2-1.0); BLOOD UREA NITROGEN 11 MG/DL (7-18); CALCIUM LEVEL 9.5 MG/DL (8.5-10.1); CARBON DIOXIDE LEVEL 29 MEQ/L (21-32); CHLORIDE LEVEL 105 MEQ/L (98-107); CREATININE FOR GFR 0.84 MG/DL (0.55-1.30); GLOMERULAR FILTRATION RATE > 60.0 (>51); GLUCOSE, FASTING 218 MG/DL (70-100); LIPASE 442 U/L (73-393); POTASSIUM SERUM 4.4 MEQ/L (3.5-5.1); SODIUM LEVEL 140 MEQ/L (136-145); TOTAL PROTEIN 7.5 GM/DL (6.4-8.2)
[2017-12-17] MEDS ORDERED: ISOVUE-370 76% 100ML VIAL (Q9967) As Ordered (20:08)
[2017-12-17] MEDS: VANCOMYCIN ORAL SOL 250MG/5ML ORAL SYRINGE PO (22:00)
== END 2017-12-17 22:53 | disposition home or self-care (01) ==
LOC: M ED 17:56
DX: A04.71 Enterocolitis due to Clostridium difficile, recurrent (principal); I10 Essential (primary) hypertension; J45.909 Unspecified asthma, uncomplicated; M32.9 Systemic lupus erythematosus, unspecified; G43.909 Migraine, unspecified, not intractable, without status migrainosus; M48.00 Spinal stenosis, site unspecified; Z86.73 Personal history of transient ischemic attack (TIA), and cerebral infarction without residual deficits; Z98.1 Arthrodesis status; Z86.19 Personal history of other infectious and parasitic diseases; Z88.5 Allergy status to narcotic agent; Z88.2 Allergy status to sulfonamides; Z88.8 Allergy status to other drugs, medicaments and biological substances; Z91.018 Allergy to other foods; Z79.899 Other long term (current) drug therapy; Z79.1 Long term (current) use of non-steroidal anti-inflammatories (NSAID); Z79.4 Long term (current) use of insulin; Z79.51 Long term (current) use of inhaled steroids
CPT/HCPCS: Q9963

== ENCOUNTER → 2018-01-23 | Outpatient (CLI) | payer BC ==
[2018-01-23 20:09] LABS: ESTIMATED AVERAGE GLUCOSE 183 MG/DL (60-110)
[2018-01-23 20:11] LABS: CHOLESTEROL LEVEL 204 MG/DL (<200); HDL CHOLESTEROL 50 MG/DL (>40); MAGNESIUM LEVEL 1.7 MG/DL (1.8-2.4); NON-HDL-C 154 MG/DL; TRIGLYCERIDES LEVEL 220 MG/DL (<150)
[2018-01-23 21:52] LABS: TOTAL 25(OH) VITAMIN D 35.5 NG/ML (30.0-100.0)
== END ==
LOC: M WUC 16:09
DX: E11.40 Type 2 diabetes mellitus with diabetic neuropathy, unspecified (principal); E78.2 Mixed hyperlipidemia; E55.9 Vitamin D deficiency, unspecified; R53.83 Other fatigue
CPT/HCPCS: 83735

== ENCOUNTER → 2018-01-24 | Outpatient (REF) | payer BC | LOC: M LAB REF 16:38 | DX: A04.71 Enterocolitis due to Clostridium difficile, recurrent (principal) ==

== ENCOUNTER → 2018-04-12 | Outpatient (REF) | payer BC ==
[2018-04-12 16:29] LABS: BASO # 0.1 10^3/uL (0.0-0.2); BASO % 0.9 % (0.0-1.0); EOS # 0.3 10^3/uL (0.0-0.50); EOS % 3.3 % (0.0-3.0); HEMATOCRIT 39.1 % (36.0-47.0); HEMOGLOBIN 12.9 g/dl (12.0-15.5); IMMATURE GRANULOCYTE % 0.4 % (0-3.0); LYMPH # 2.7 10^3/uL (1.5-4.5); LYMPH % 34.9 % (24.0-44.0); MEAN CORPUSCULAR HEMOGLOBIN 28.4 pg (27.0-33.0); MEAN CORPUSCULAR VOLUME 85.9 fl (80.0-96.0); MONO # 0.6 10^3/uL (0.0-0.8); MONO % 7.3 % (0.0-5.0); NEUTROPHILS # 4.2 10^3/uL (1.8-7.7); NEUTROPHILS % 53.2 % (36.0-66.0); PLATELET COUNT, AUTOMATED 330 10^3/uL (150-450); RED BLOOD COUNT 4.55 10^6/uL (4.00-5.40); RED CELL DISTRIBUTION WIDTH 13.2 % (11.5-14.5); WHITE BLOOD COUNT 7.8 10^3/uL (4.0-10.0)
[2018-04-12 16:43] LABS: APPEARANCE, URINE CLOUDY (CLEAR); BACTERIA, URINE AUTO 2+ (NEGATIVE); BILIRUBIN, URINE AUTO NEGATIVE (NEGATIVE); BLOOD, URINE BLOOD 3+ (NEGATIVE); COLOR, URINE YELLOW (YELLOW); GLUCOSE, URINE (UA) AUTO 2+ mg/dL (NEGATIVE); KETONE, URINE AUTO NEGATIVE (NEGATIVE); LEUKOCYTE ESTERASE, URINE AUTO 3+ (NEGATIVE); MUCUS, URINE SMALL (NEGATIVE); NITRITE, URINE AUTO POSITIVE (NEGATIVE); PROTEIN, URINE AUTO 1+ mg/dL (NEGATIVE); RBC, URINE AUTO 79 /HPF (0-3); SPECIFIC GRAVITY URINE AUTO 1.018 (1.002-1.035); SQUAMOUS EPITHELIAL CELL UR AU 5 /HPF (0-6); UROBILINOGEN, URINE AUTO 0.2 mg/dL (0.0-2.0); WBC, URINE AUTO TNTC /HPF (0-3)
[2018-04-12 16:49] LABS: VITAMIN B12 LEVEL 809 PG/ML (247-911)
[2018-04-12 17:09] LABS: ERYTHROCYTE SEDIMENTATION RATE 64 mm/hr (0-30)
[2018-04-12 17:20] LABS: ALBUMIN/GLOBULIN RATIO 0.95 (1.00-1.93); ALKALINE PHOSPHATASE 82 U/L (45-117); ALT/SGPT 68 U/L (12-78); ANION GAP 13 MEQ/L (8-16); AST/SGOT 58 U/L (7-37); BILIRUBIN,TOTAL 0.4 MG/DL (0.2-1.0); BLOOD UREA NITROGEN 17 MG/DL (7-18); CARBON DIOXIDE LEVEL 25 MEQ/L (21-32); CHLORIDE LEVEL 101 MEQ/L (98-107); COMPLEMENT C3 232 MG/DL (90-180); COMPLEMENT C4 48.1 MG/DL (10-40); GLOMERULAR FILTRATION RATE > 60.0 (>51); GLUCOSE, FASTING 180 MG/DL (70-100); RHEUMATOID FACTOR QUANT < 10.0 IU/ML (<15.0); SODIUM LEVEL 139 MEQ/L (136-145); TOTAL PROTEIN 8.2 GM/DL (6.4-8.2)
[2018-04-12 20:07] LABS: TOTAL PROTEIN,RANDOM URINE 31.7 MG/DL (0.0-12.0)
[2018-04-17 00:06] LABS: ANA (HEP2) Positive (.); ANTI DOUBLE STRAND-DNA AB 1 IU/mL (0-9); BETA-2 GLYCOPROTEIN I ABY IGA <9 (0-25); BETA-2 GLYCOPROTEIN I ABY IGG <9 (0-20); BETA-2 GLYCOPROTEIN I ABY IGM <9 (0-32); CARDIOLIPIN IGA ANTIBODY <9 APL U/mL (0-11); CARDIOLIPIN IGG ANTIBODY <9 GPL U/mL (0-14); CARDIOLIPIN IGM ANTIBODY 10 MPL U/mL (0-12); CYCLIC CITRULLINATED PEPTIDE 25 units (0-19); RNP ANTIBODY 1.4 AI (0.0-0.9); SMITHS ANTIBODY < 0.2 AI (0.0-0.9); SSA SJOGRENS A <0.2 AI (0.0-0.9); SSB SJOGRENS B <0.2 AI (0.0-0.9)
[2018-04-17 10:46] LABS: DRVV SCREEN 43.8 SEC
== END ==
LOC: M SFHCLERA 12:17
DX: Z87.39 Personal history of other diseases of the musculoskeletal system and connective tissue (principal)
CPT/HCPCS: 84443

== ENCOUNTER → 2018-05-01 | Outpatient (REF) | payer BC ==
[2018-05-01 20:41] LABS: APPEARANCE, URINE CLOUDY (CLEAR); BACTERIA, URINE AUTO 1+ (NEGATIVE); BILIRUBIN, URINE AUTO NEGATIVE (NEGATIVE); BLOOD, URINE BLOOD 3+ (NEGATIVE); COLOR, URINE YELLOW (YELLOW); GLUCOSE, URINE (UA) AUTO 1+ mg/dL (NEGATIVE); KETONE, URINE AUTO NEGATIVE (NEGATIVE); LEUKOCYTE ESTERASE, URINE AUTO 3+ (NEGATIVE); MUCUS, URINE SMALL (NEGATIVE); NITRITE, URINE AUTO NEGATIVE (NEGATIVE); PROTEIN, URINE AUTO 2+ mg/dL (NEGATIVE); RBC, URINE AUTO 180 /HPF (0-3); SPECIFIC GRAVITY URINE AUTO 1.019 (1.002-1.035); SQUAMOUS EPITHELIAL CELL UR AU 7 /HPF (0-6); UROBILINOGEN, URINE AUTO 0.2 mg/dL (0.0-2.0); WBC, URINE AUTO TNTC /HPF (0-3)
== END ==
LOC: M SFHCLERA 15:45
DX: R82.90 Unspecified abnormal findings in urine (principal)
CPT/HCPCS: 81001

== ENCOUNTER 2018-05-08 00:27 | Inpatient (IN) | payer BC ==
[2018-05-08 01:16] LABS: BASO % 0.4 % (0.0-1.0); EOS # 0.1 10^3/uL (0.0-0.50); EOS % 0.7 % (0.0-3.0); HEMATOCRIT 40.5 % (36.0-47.0); HEMOGLOBIN 13.9 g/dl (12.0-15.5); IMMATURE GRANULOCYTE % 1.2 % (0-3.0); LYMPH # 4.1 10^3/uL (1.5-4.5); LYMPH % 36.7 % (24.0-44.0); MEAN CORPUSCULAR HEMOGLOBIN 28.6 pg (27.0-33.0); MEAN CORPUSCULAR HGB CONC 34.3 g/dl (32.0-36.5); MEAN CORPUSCULAR VOLUME 83.3 fl (80.0-96.0); MONO # 0.6 10^3/uL (0.0-0.8); MONO % 5.4 % (0.0-5.0); NEUTROPHILS # 6.1 10^3/uL (1.8-7.7); NEUTROPHILS % 55.6 % (36.0-66.0); PLATELET COUNT, AUTOMATED 373 10^3/uL (150-450); RED BLOOD COUNT 4.86 10^6/uL (4.00-5.40); RED CELL DISTRIBUTION WIDTH 13.2 % (11.5-14.5)
[2018-05-08 01:38] LABS: ANION GAP 10 MEQ/L (8-16); BLOOD UREA NITROGEN 24 MG/DL (7-18); CALCIUM LEVEL 9.5 MG/DL (8.5-10.1); CARBON DIOXIDE LEVEL 30 MEQ/L (21-32); CHLORIDE LEVEL 94 MEQ/L (98-107); CREATININE FOR GFR 1.19 MG/DL (0.55-1.30); GLOMERULAR FILTRATION RATE 50.9 (>51); GLUCOSE, FASTING 311 MG/DL (70-100); POTASSIUM SERUM 3.2 MEQ/L (3.5-5.1); SODIUM LEVEL 134 MEQ/L (136-145)
[2018-05-08] MEDS: POTASSIUM CHLORIDE 10 MEQ SR TABLET PO ×2 (02:45→08:44)
[2018-05-08] MEDS: NS 1,000 ML IV ×3 (02:46→18:07)
[2018-05-08] MEDS: NS 500 ML IV (02:46)
[2018-05-08] MEDS: HumuLIN R (REGULAR) INSULIN (NovoLIN R) **100U/ML** PER UNIT IV (02:47)
[2018-05-08 04:10] LABS: BEDSIDE GLUCOSE 273 MG/DL (70-105)
[2018-05-08] MEDS ORDERED: GLUCOSE 4 GM CHEW TABLET PO (05:30)
[2018-05-08] MEDS ORDERED: DEXTROSE 50% 50 ML SYRINGE IV (05:30)
[2018-05-08] MEDS ORDERED: POLYVINYL ALCOHOL OPHTH SOLN 15 ML(LIQUITEARS) OU (05:30)
[2018-05-08] MEDS ORDERED: FLUTICASONE PROP 0.05% NASAL SPRAY 16 GM (FLONASE) (05:30)
[2018-05-08] MEDS ORDERED: IPRATROPIUM 0.5MG/ALBUTEROL 2.5MG INH SOL UD 3ML (DUONEB)(J7620) NEB (05:30)
[2018-05-08] MEDS ORDERED: GLUCAGON FOR INJ 1 MG VIAL (J1610) SC (05:30)
[2018-05-08 05:41] LABS: COMPLEMENT C3 183 MG/DL (90-180)
[2018-05-08 05:59] LABS: ESTIMATED AVERAGE GLUCOSE 192 MG/DL (60-110); HEMOGLOBIN A1c 8.3 %
[2018-05-08 06:02] LABS: TROPONIN I < 0.02 NG/ML (< 0.10)
[2018-05-08 07:45] LABS: TROPONIN I < 0.02 NG/ML (< 0.10)
[2018-05-08 08:43] LABS: BEDSIDE GLUCOSE 231 MG/DL (70-105)
[2018-05-08] MEDS: HEPARIN SOD (PORCINE) 5000 UNITS/ML VIAL SQ ×3 (08:44→21:39)
[2018-05-08] MEDS: HumaLOG INSULIN (NovoLOG) PER UNIT SC ×3 (08:55→17:33)
[2018-05-08] MEDS: SYMBICORT 160/4.5MCG INHALER 6GM INH ×2 (09:50→20:48)
[2018-05-08] MEDS: NEBIVOLOL 5 MG TAB (BYSTOLIC) PO (10:08)
[2018-05-08] MEDS: predniSONE 2.5 MG TAB PO (10:08)
[2018-05-08] MEDS: OMEPRAZOLE 20 MG CAP PO (10:09)
[2018-05-08] MEDS: MULTIVITAMINS/MINERALS THERAP 1 TAB PO (10:09)
[2018-05-08] MEDS: TELMISARTAN 20 MG TAB PO (10:09)
[2018-05-08] MEDS: LEVEMIR (INSULIN DETEMIR) 1 UNITS/0.01ML SC ×2 (10:10→21:38)
[2018-05-08 11:32] LABS: HEMATOCRIT 39.7 % (36.0-47.0); MEAN CORPUSCULAR HEMOGLOBIN 27.8 pg (27.0-33.0); MEAN CORPUSCULAR HGB CONC 32.7 g/dl (32.0-36.5); PLATELET COUNT, AUTOMATED 343 10^3/uL (150-450); RED BLOOD COUNT 4.67 10^6/uL (4.00-5.40); RED CELL DISTRIBUTION WIDTH 13.5 % (11.5-14.5); WHITE BLOOD COUNT 9.6 10^3/uL (4.0-10.0)
[2018-05-08 12:03] LABS: ALBUMIN 3.3 GM/DL (3.2-5.2); ALBUMIN/GLOBULIN RATIO 0.89 (1.00-1.93); ALKALINE PHOSPHATASE 71 U/L (45-117); ALT/SGPT 70 U/L (12-78); ANION GAP 9 MEQ/L (8-16); AST/SGOT 66 U/L (7-37); BILIRUBIN,TOTAL 0.5 MG/DL (0.2-1.0); BLOOD UREA NITROGEN 18 MG/DL (7-18); C REACTIVE PROTEIN QUANTITATIV 1.66 MG/DL (0.00-0.30); CALCIUM LEVEL 9.1 MG/DL (8.5-10.1); CARBON DIOXIDE LEVEL 29 MEQ/L (21-32); CHLORIDE LEVEL 99 MEQ/L (98-107); CREATININE FOR GFR 0.95 MG/DL (0.55-1.30); ERYTHROCYTE SEDIMENTATION RATE 39 mm/hr (0-30); GLOMERULAR FILTRATION RATE > 60.0 (>51); GLUCOSE, FASTING 276 MG/DL (70-100); POTASSIUM SERUM 3.8 MEQ/L (3.5-5.1); SODIUM LEVEL 137 MEQ/L (136-145)
[2018-05-08 12:31] LABS: BEDSIDE GLUCOSE 276 MG/DL (70-105)
[2018-05-08 18:08] LABS: APPEARANCE, URINE CLEAR (CLEAR); BACTERIA, URINE AUTO 1+ (NEGATIVE); BILIRUBIN, URINE AUTO NEGATIVE (NEGATIVE); BLOOD, URINE BLOOD 2+ (NEGATIVE); COLOR, URINE YELLOW (YELLOW); GLUCOSE, URINE (UA) AUTO 3+ mg/dL (NEGATIVE); KETONE, URINE AUTO NEGATIVE (NEGATIVE); LEUKOCYTE ESTERASE, URINE AUTO 1+ (NEGATIVE); NITRITE, URINE AUTO NEGATIVE (NEGATIVE); PROTEIN, URINE AUTO NEGATIVE (NEGATIVE); RBC, URINE AUTO 13 /HPF (0-3); SPECIFIC GRAVITY URINE AUTO 1.014 (1.002-1.035); SQUAMOUS EPITHELIAL CELL UR AU 4 /HPF (0-6); UROBILINOGEN, URINE AUTO 0.2 mg/dL (0.0-2.0); WBC, URINE AUTO 24 /HPF (0-3); YEAST LIKE CELL URINE AUTO SMALL
[2018-05-08] MEDS: MAGNESIUM CHLORIDE 64 MG TABCR (SLO MAG) PO (21:38)
[2018-05-08] MEDS: ROSUVASTATIN 10 MG TAB (CRESTOR) PO (21:38)
[2018-05-09 01:26] LABS: BEDSIDE GLUCOSE 266 MG/DL (70-105)
[2018-05-09 01:27] LABS: BEDSIDE GLUCOSE 191 MG/DL (70-105)
[2018-05-09] MEDS: NS 1,000 ML IV ×3 (04:58→20:08)
[2018-05-09] MEDS: HEPARIN SOD (PORCINE) 5000 UNITS/ML VIAL SQ ×3 (05:01→21:39)
[2018-05-09 05:18] LABS: KETONE, URINE AUTO RFX NEGATIVE (NEGATIVE); MUCUS, URINE RFX SMALL (NEGATIVE); NITRITE, URINE AUTO RFX NEGATIVE (NEGATIVE); RBC, URINE AUTO RFX TNTC /HPF (0-3); SPECIFIC GRAVITY UR AUTO RFX 1.018 (1.002-1.035); SQUAM EPITHELIAL CELL UR AURFX 0 /HPF (0-6)
[2018-05-09 05:20] LABS: LEUKOCYTE ESTERASE UR AUTO RFX 2+ (NEGATIVE); WBC, URINE AUTO RFX 130 /HPF (0-3)
[2018-05-09 06:44] LABS: HEMATOCRIT 36.1 % (36.0-47.0); HEMOGLOBIN 11.7 g/dl (12.0-15.5); MEAN CORPUSCULAR HEMOGLOBIN 28.1 pg (27.0-33.0); MEAN CORPUSCULAR HGB CONC 32.4 g/dl (32.0-36.5); MEAN CORPUSCULAR VOLUME 86.6 fl (80.0-96.0); PLATELET COUNT, AUTOMATED 280 10^3/uL (150-450); RED BLOOD COUNT 4.17 10^6/uL (4.00-5.40); RED CELL DISTRIBUTION WIDTH 13.4 % (11.5-14.5); WHITE BLOOD COUNT 10.8 10^3/uL (4.0-10.0)
[2018-05-09 06:57] LABS: ANION GAP 6 MEQ/L (8-16); BLOOD UREA NITROGEN 17 MG/DL (7-18); CALCIUM LEVEL 8.5 MG/DL (8.5-10.1); CARBON DIOXIDE LEVEL 28 MEQ/L (21-32); CHLORIDE LEVEL 105 MEQ/L (98-107); CREATININE FOR GFR 0.93 MG/DL (0.55-1.30); GLOMERULAR FILTRATION RATE > 60.0 (>51); GLUCOSE, FASTING 179 MG/DL (70-100); POTASSIUM SERUM 3.5 MEQ/L (3.5-5.1); SODIUM LEVEL 139 MEQ/L (136-145)
[2018-05-09] MEDS: predniSONE 2.5 MG TAB PO (08:05)
[2018-05-09] MEDS: OMEPRAZOLE 20 MG CAP PO (08:05)
[2018-05-09] MEDS: MULTIVITAMINS/MINERALS THERAP 1 TAB PO (08:05)
[2018-05-09] MEDS: HumaLOG INSULIN (NovoLOG) PER UNIT SC ×3 (08:06→18:20)
[2018-05-09] MEDS: NEBIVOLOL 5 MG TAB (BYSTOLIC) PO (08:06)
[2018-05-09] MEDS: LEVEMIR (INSULIN DETEMIR) 1 UNITS/0.01ML SC ×2 (08:06→20:11)
[2018-05-09] MEDS: TELMISARTAN 20 MG TAB PO (08:07)
[2018-05-09] MEDS: SYMBICORT 160/4.5MCG INHALER 6GM INH ×2 (08:29→21:35)
[2018-05-09 11:33] LABS: BEDSIDE GLUCOSE 171 MG/DL (70-105)
[2018-05-09 11:39] LABS: BEDSIDE GLUCOSE 267 MG/DL (70-105)
[2018-05-09 14:16] LABS: ANTI DOUBLE STRAND-DNA AB <1 IU/mL (0-9)
[2018-05-09 16:34] LABS: BEDSIDE GLUCOSE 214 MG/DL (70-105)
[2018-05-09] MEDS: MAGNESIUM CHLORIDE 64 MG TABCR (SLO MAG) PO (20:09)
[2018-05-09] MEDS: ROSUVASTATIN 10 MG TAB (CRESTOR) PO (20:10)
[2018-05-10] MEDS: NS 1,000 ML IV (06:09)
[2018-05-10] MEDS: HEPARIN SOD (PORCINE) 5000 UNITS/ML VIAL SQ (06:09)
[2018-05-10 06:18] LABS: HEMATOCRIT 33.2 % (36.0-47.0); HEMOGLOBIN 11.2 g/dl (12.0-15.5); MEAN CORPUSCULAR HGB CONC 33.7 g/dl (32.0-36.5); PLATELET COUNT, AUTOMATED 247 10^3/uL (150-450); RED BLOOD COUNT 3.86 10^6/uL (4.00-5.40); RED CELL DISTRIBUTION WIDTH 13.3 % (11.5-14.5); WHITE BLOOD COUNT 9.3 10^3/uL (4.0-10.0)
[2018-05-10 06:49] LABS: ANION GAP 9 MEQ/L (8-16); BLOOD UREA NITROGEN 19 MG/DL (7-18); CALCIUM LEVEL 8.3 MG/DL (8.5-10.1); CARBON DIOXIDE LEVEL 25 MEQ/L (21-32); CHLORIDE LEVEL 108 MEQ/L (98-107); CREATININE FOR GFR 0.89 MG/DL (0.55-1.30); GLOMERULAR FILTRATION RATE > 60.0 (>51); GLUCOSE, FASTING 182 MG/DL (70-100); POTASSIUM SERUM 3.5 MEQ/L (3.5-5.1); SODIUM LEVEL 142 MEQ/L (136-145)
[2018-05-10] MEDS: SYMBICORT 160/4.5MCG INHALER 6GM INH (07:51)
[2018-05-10] MEDS: MULTIVITAMINS/MINERALS THERAP 1 TAB PO (09:06)
[2018-05-10] MEDS: OMEPRAZOLE 20 MG CAP PO (09:07)
[2018-05-10] MEDS: LEVEMIR (INSULIN DETEMIR) 1 UNITS/0.01ML SC (09:07)
[2018-05-10] MEDS: predniSONE 2.5 MG TAB PO (09:07)
[2018-05-10] MEDS: HumaLOG INSULIN (NovoLOG) PER UNIT SC ×2 (09:08→13:26)
[2018-05-10] MEDS: NEBIVOLOL 5 MG TAB (BYSTOLIC) PO (09:10)
[2018-05-10] MEDS: TELMISARTAN 20 MG TAB PO (09:10)
[2018-05-10 11:43] LABS: BEDSIDE GLUCOSE 204 MG/DL (70-105)
[2018-05-11 12:32] LABS: BEDSIDE GLUCOSE 170 MG/DL (70-105)
== END 2018-05-10 14:00 | disposition home or self-care (01) | DRG 248 ==
LOC: M ED 00:27 → M ED INP 05:12 → M MSPAV 14:22
DX: A04.71 Enterocolitis due to Clostridium difficile, recurrent (principal); E11.65 Type 2 diabetes mellitus with hyperglycemia; I10 Essential (primary) hypertension; R55 Syncope and collapse; J45.909 Unspecified asthma, uncomplicated; R20.2 Paresthesia of skin; K21.9 Gastro-esophageal reflux disease without esophagitis; R32 Unspecified urinary incontinence; E78.5 Hyperlipidemia, unspecified; L93.0 Discoid lupus erythematosus; G40.909 Epilepsy, unspecified, not intractable, without status epilepticus; Z90.710 Acquired absence of both cervix and uterus; Z98.1 Arthrodesis status; Z91.018 Allergy to other foods; Z88.1 Allergy status to other antibiotic agents; Z88.2 Allergy status to sulfonamides; Z88.5 Allergy status to narcotic agent; Z79.51 Long term (current) use of inhaled steroids; Z79.4 Long term (current) use of insulin; Z86.73 Personal history of transient ischemic attack (TIA), and cerebral infarction without residual deficits; Z79.899 Other long term (current) drug therapy

== ENCOUNTER → 2018-05-23 | Outpatient (REF) | payer BC ==
[2018-05-23 17:59] LABS: BASO % 0.7 % (0.0-1.0); EOS # 0.3 10^3/uL (0.0-0.50); EOS % 4.5 % (0.0-3.0); HEMOGLOBIN 12.4 g/dl (12.0-15.5); IMMATURE GRANULOCYTE % 0.5 % (0-3.0); LYMPH # 2.6 10^3/uL (1.5-4.5); LYMPH % 43.3 % (24.0-44.0); MEAN CORPUSCULAR HEMOGLOBIN 28.6 pg (27.0-33.0); MEAN CORPUSCULAR HGB CONC 33.5 g/dl (32.0-36.5); MEAN CORPUSCULAR VOLUME 85.3 fl (80.0-96.0); MONO # 0.4 10^3/uL (0.0-0.8); MONO % 6.2 % (0.0-5.0); NEUTROPHILS # 2.7 10^3/uL (1.8-7.7); NEUTROPHILS % 44.8 % (36.0-66.0); PLATELET COUNT, AUTOMATED 319 10^3/uL (150-450); RED BLOOD COUNT 4.34 10^6/uL (4.00-5.40); RED CELL DISTRIBUTION WIDTH 13.1 % (11.5-14.5); WHITE BLOOD COUNT 5.9 10^3/uL (4.0-10.0)
[2018-05-23 18:47] LABS: IMMUNOGLOBULIN G 842 MG/DL (681-1648); IMMUNOGLOBULIN M 94 MG/DL (40-230)
[2018-05-23 19:16] LABS: ERYTHROCYTE SEDIMENTATION RATE 54 mm/hr (0-30)
[2018-05-25 11:21] LABS: HEPATITIS C VIRUS ABY INDEX 0.1 INDEX (<0.8)
[2018-05-26 08:36] LABS: IgG SERUM (part of Subclasses) 796 mg/dL (700-1600); IgG Subclass 1 464 mg/dL (248-810); IgG Subclass 2 244 mg/dL (130-555); IgG Subclass 3 18 mg/dL (15-102); IgG Subclass 4 28 mg/dL (2-96)
== END ==
LOC: M SFHCPLAZ 15:34
DX: A04.71 Enterocolitis due to Clostridium difficile, recurrent (principal)

== ENCOUNTER → 2018-05-23 | Outpatient (REF) | payer BC | LOC: M SFHCLERA 13:08 | DX: L57.0 Actinic keratosis (principal) | CPT/HCPCS: 88305 ==

== ENCOUNTER → 2018-07-16 | Outpatient (REF) | payer BC ==
[2018-07-16 13:22] LABS: BASO # 0.1 10^3/uL (0.0-0.2); BASO % 0.8 % (0.0-1.0); EOS # 0.3 10^3/uL (0.0-0.50); EOS % 3.7 % (0.0-3.0); HEMATOCRIT 40.3 % (36.0-47.0); HEMOGLOBIN 13.5 g/dl (12.0-15.5); IMMATURE GRANULOCYTE % 0.4 % (0-3.0); LYMPH # 2.3 10^3/uL (1.5-4.5); MEAN CORPUSCULAR HEMOGLOBIN 28.4 pg (27.0-33.0); MEAN CORPUSCULAR HGB CONC 33.5 g/dl (32.0-36.5); MEAN CORPUSCULAR VOLUME 84.8 fl (80.0-96.0); MONO # 0.4 10^3/uL (0.0-0.8); NEUTROPHILS # 4.4 10^3/uL (1.8-7.7); NEUTROPHILS % 59.1 % (36.0-66.0); PLATELET COUNT, AUTOMATED 349 10^3/uL (150-450); RED BLOOD COUNT 4.75 10^6/uL (4.00-5.40); RED CELL DISTRIBUTION WIDTH 12.9 % (11.5-14.5); WHITE BLOOD COUNT 7.4 10^3/uL (4.0-10.0)
[2018-07-16 13:34] LABS: ANION GAP 9 MEQ/L (8-16); BLOOD UREA NITROGEN 13 MG/DL (7-18); CALCIUM LEVEL 9.9 MG/DL (8.5-10.1); CARBON DIOXIDE LEVEL 30 MEQ/L (21-32); CHLORIDE LEVEL 98 MEQ/L (98-107); CREATININE FOR GFR 0.91 MG/DL (0.55-1.30); GLOMERULAR FILTRATION RATE > 60.0 (>51); GLUCOSE, FASTING 224 MG/DL (70-100); POTASSIUM SERUM 3.5 MEQ/L (3.5-5.1); SODIUM LEVEL 137 MEQ/L (136-145)
[2018-07-16 15:07] LABS: ERYTHROCYTE SEDIMENTATION RATE 50 mm/hr (0-30)
== END ==
LOC: M SFHCPLAZ 12:04
DX: Z86.19 Personal history of other infectious and parasitic diseases (principal)
CPT/HCPCS: 80048

== ENCOUNTER → 2018-08-06 | Outpatient (CLI) | payer BC ==
[~2018-08-06] MED LIST changes: +ALBU1.25 INH; -DRIS50002 PO; +DRIS50003 PO; -FIRS1SOL3 PO; +FIRS50SO PO; +NAPR-49 PO; -NAPR500T PO; -ROSU40TA PO; +ROSU40TA3 PO; +SPIR-10 PO; -SPIR25TA2 PO; +TELM1TAB37 PO; +VANC125C2 PO; +VENTAER INH
--- NOTE | 2018-08-06 14:36 | REP ---
MR BRAIN WITHOUT CONTRAST: HISTORY: Blurred vision. COMPARISON: 01/01/2017 Scattered punctate areas of increased signal intensity on T2 weighted images are present in the periventricular and subcortical white matter and the adolfo. This represents small vessel ischemic disease. There is no intraparenchymal hemorrhage, infarct, mass, or midline shift. The ventricular system is normal in appearance. There is no extracerebral collection. The sinuses are clear. IMPRESSION: Minimal small vessel ischemic disease. Electronically Signed by Javier Vyas MD 08/06/2018 02:42 P
== END ==
LOC: M RAD 11:38
PROVIDERS: ATTEND Internal Medicine Infectious Disease
DX: I73.9 Peripheral vascular disease, unspecified (principal); H53.8 Other visual disturbances

== ENCOUNTER → 2018-10-17 | Outpatient (CLI) | payer BC ==
[~2018-10-17] MED LIST changes: +CONRAY-43 43% 50ML VIAL (Q9960) As Ordered ONE; -NAPR-49 PO; +NAPR-50 PO
--- NOTE | 2018-10-17 13:16 | REP ---
LEFT BREAST DUCTOGRAM: 10/17/2018. COMPARISON: Diagnostic bilateral mammogram and left breast ultrasound 10/04/2018 at [facility]. CLINICAL HISTORY: Persistent clear left nipple discharge since mid August. FINDINGS: The procedure was discussed with the potential diagnostic benefits and risks of pain, infection and nondiagnostic procedure. She understands and consent was obtained. With the patient seated, she was readily able to express fluid from the left at about the 9-10 o'clock position on the nipple. O'clock prep scrub performed, sterile field applied and a 31-gauge ductogram probe was placed into that duct that was readily able to locate by expressing a small amount of fluid manually. The probe passed easily into the duct for full length of the probe. It was taped to the nipple in the anterior breast with Steri-Strips. A small amount of Conray 43 was injected. Initial image was obtained, re-injection and a repeat CC image. This was followed by left MLO view with injection and a repeat left MLO view after a another re-injection. Rule despite manually elongated of the nipple for injection was able either to pass contrast deep to the nipple. A fall. The surface of the skin along the tapes duct was never able to define a duct. There are a few small ducts visible behind the nipple on these mammogram images. IMPRESSION: 1. BIRADS ACR category 0, incomplete, needs additional imaging evaluation. The ductogram did not disclose any normal or abnormal ductal architecture or filling defects therein. Appropriately placed probe in the duct that was expressing fluid through the nipple was unable to define any filling defect. It could be that this duct itself is blocked within the nipple. I would recommend breast surgical consultation to evaluate and discern need for breast MRI in this setting. There was no bloody character to the discharge from the left nipple, it remained clear when expressed by the patient or by myself during the course of this examination. Electronically Signed by David Law MD 10/17/2018 01:07 P
== END ==
LOC: M RAD 11:58
PROVIDERS: ATTEND Physician Assistant
DX: N64.52 Nipple discharge (principal)
CPT/HCPCS: 77053; Q9960

== ENCOUNTER → 2018-11-21 | Outpatient (REF) | payer BC ==
[~2018-11-21] MED LIST changes: -CONRAY-43 43% 50ML VIAL (Q9960) As Ordered ONE
[2018-11-21 14:03] LABS: APPEARANCE, URINE CLOUDY (CLEAR); BACTERIA, URINE AUTO 1+ (NEGATIVE); BILIRUBIN, URINE AUTO NEGATIVE (NEGATIVE); BLOOD, URINE BLOOD 2+ (NEGATIVE); COLOR, URINE YELLOW (YELLOW); GLUCOSE, URINE (UA) AUTO 3+ mg/dL (NEGATIVE); KETONE, URINE AUTO TRACE mg/dL (NEGATIVE); LEUKOCYTE ESTERASE, URINE AUTO 3+ (NEGATIVE); MUCUS, URINE SMALL (NEGATIVE); NITRITE, URINE AUTO NEGATIVE (NEGATIVE); PROTEIN, URINE AUTO 1+ mg/dL (NEGATIVE); RBC, URINE AUTO 71 /HPF (0-3); SPECIFIC GRAVITY URINE AUTO 1.022 (1.002-1.035); SQUAMOUS EPITHELIAL CELL UR AU 13 /HPF (0-6); UROBILINOGEN, URINE AUTO 0.2 mg/dL (0.0-2.0); WBC, URINE AUTO TNTC /HPF (0-3)
== END ==
LOC: M LAB REF 12:50
PROVIDERS: ATTEND Physician Assistant
DX: N39.0 Urinary tract infection, site not specified (principal)

== ENCOUNTER → 2018-11-22 | Outpatient (CLI) | payer BC ==
[~2018-11-22] MED LIST changes: -/MOM400 PO; -/PANT40TA PO; +ASPI-1 PO; -ASPI1TAB PO; -ASPI325T PO; +ASPI81TA26 PO; +CRES10TA PO; -CRES10TA32 PO; -CYCL5TA PO; +CYCL5TAB5 PO; -DOCU10ELUD PO; +DOCU5LIQ PO; +FLUT1SPR2; -FLUTISP; +HYDR-4266 PO; -HYDR25TA PO; +MILK10SU PO; +MUPI1OIN2 EXT; +MUPI1OIN2 TOP; -MUPI2OI EXT; -MUPI2OI TOP; -NAPR-50 PO; +NAPR-837 PO; +PROT1TAB2 PO; -VANC125C2 PO; +VANC125C3 PO; +[UNRECOGNIZED DRUG - CODE] PO; -[UNRECOGNIZED DRUG - OTHER] PO
[2018-11-22 17:23] LABS: BASO # 0.1 10^3/uL (0.0-0.2); BASO % 0.7 % (0.0-1.0); EOS # 0.5 10^3/uL (0.0-0.50); EOS % 5.5 % (0.0-3.0); HEMOGLOBIN 13.2 g/dl (12.0-15.5); LYMPH # 2.7 10^3/uL (1.5-4.5); LYMPH % 32.5 % (24.0-44.0); MEAN CORPUSCULAR HEMOGLOBIN 28.6 pg (27.0-33.0); MEAN CORPUSCULAR HGB CONC 32.2 g/dl (32.0-36.5); MEAN CORPUSCULAR VOLUME 88.9 fl (80.0-96.0); MONO # 0.4 10^3/uL (0.0-0.8); NEUTROPHILS # 4.7 10^3/uL (1.8-7.7); NEUTROPHILS % 55.6 % (36.0-66.0); PLATELET COUNT, AUTOMATED 361 10^3/uL (150-450); RED BLOOD COUNT 4.61 10^6/uL (4.00-5.40); WHITE BLOOD COUNT 8.4 10^3/uL (4.0-10.0)
[2018-11-22 17:26] LABS: ALBUMIN 4.1 GM/DL (3.2-5.2); ALT/SGPT 57 U/L (12-78); BILIRUBIN,TOTAL 0.3 MG/DL (0.2-1.0); BLOOD UREA NITROGEN 16 MG/DL (7-18); CALCIUM LEVEL 9.2 MG/DL (8.5-10.1); CARBON DIOXIDE LEVEL 28 MEQ/L (21-32); CHLORIDE LEVEL 101 MEQ/L (98-107); CHOLESTEROL LEVEL 281 MG/DL (<200); CHOLESTEROL RISK RATIO 7.025 (<5); CREATININE FOR GFR 0.98 MG/DL (0.55-1.30); GLOMERULAR FILTRATION RATE > 60.0 (>51); GLUCOSE, FASTING 229 MG/DL (70-100); HDL CHOLESTEROL 40 MG/DL (>40); MAGNESIUM LEVEL 1.6 MG/DL (1.8-2.4); NON-HDL-C 241 MG/DL; POTASSIUM SERUM 4.1 MEQ/L (3.5-5.1); SODIUM LEVEL 137 MEQ/L (136-145); TOTAL PROTEIN 7.6 GM/DL (6.4-8.2); TRIGLYCERIDES LEVEL 560 MG/DL (<150)
[2018-11-22 17:43] LABS: MAU/CREAT RATIO 213.1 MCG/MG (0.0-30.0)
[2018-11-22 18:20] LABS: HEMOGLOBIN A1c 9.1 %
== END ==
LOC: M WUC 10:44
PROVIDERS: ATTEND Physician Assistant
DX: E11.40 Type 2 diabetes mellitus with diabetic neuropathy, unspecified (principal); E78.2 Mixed hyperlipidemia; E55.9 Vitamin D deficiency, unspecified

== ENCOUNTER → 2018-11-22 | Outpatient (CLI) | payer BC ==
[2018-11-22 17:22] LABS: PROGESTERONE 0.21 NG/ML; PROLACTIN 3.6 NG/ML
== END ==
LOC: M WUC 10:48
PROVIDERS: ATTEND Surgery
DX: N64.52 Nipple discharge (principal)

== ENCOUNTER → 2019-01-01 | Outpatient (REF) | payer BC ==
[2019-01-01 14:16] LABS: URINE TOTAL PROTEIN 58.9 MG/DL (0-12)
[2019-01-01 14:21] LABS: COMPLEMENT C3 237 MG/DL (90-180); COMPLEMENT C4 47 MG/DL (10-40)
[2019-01-02 12:07] LABS: HEPATITIS B SURFACE ANTIBODY NEGATIVE (POSITIVE)
[2019-01-02 12:18] LABS: HEPATITIS B SURFACE ANTIGEN NEGATIVE (NEGATIVE)
[2019-01-02 12:46] LABS: HEPATITIS B CORE ANTIBODY IGM NEGATIVE (NEGATIVE); HEPATITIS C VIRUS ABY INDEX 0.1 INDEX (<0.8)
[2019-01-03 11:28] LABS: ALBUMIN 4.57 GM/DL (3.29-5.55); ALBUMIN % 57.1 % (55.8-66.1); ALPHA-1-GLOBULIN % 4.1 % (2.9-4.9); ALPHA-1-GLOBULINS 0.33 GM/DL (0.17-0.41); ALPHA-2-GLOBULINS 0.94 GM/DL (0.42-0.99); ALPHA-2-GLOBULINS % 11.8 % (7.1-11.8); BETA-1-GLOBULINS 0.58 GM/DL (0.28-0.60); BETA-1-GLOBULINS % 7.3 % (4.7-7.2); BETA-2-GLOBULINS 0.54 GM/DL (0.19-0.55); BETA-2-GLOBULINS % 6.8 % (3.2-6.5); GAMMA GLOBULIN % 12.9 % (11.1-18.8); GAMMA GLOBULINS 1.03 GM/DL (0.65-1.58)
[2019-01-03 11:51] LABS: UPEP INTERPRETATION NO M-SPIKE NOTED
[2019-01-04 14:11] LABS: ANCA-ATYPICAL <1:20 titer (Neg:<1:20); ANTI DS-DNA AB <1:10 titer (.); ANTINUCLEAR ANTIBODIES DIRECT Negative (Negative); CYTOPLASMIC NEUTROP AB ANCA-C <1:20 titer (Neg:<1:20); FREE KAPPA LIGHT CHAINS SERUM 19.5 mg/L (3.3-19.4); FREE LAMBDA LIGHT CHAINS SERUM 15.8 mg/L (5.7-26.3); KAPPA/LAMBDA RATIO SERUM 1.23 (0.26-1.65); PERINUCLEAR AB ANCA-P <1:20 titer (Neg:<1:20)
== END ==
LOC: M LAB REF 13:00
PROVIDERS: ATTEND Internal Medicine Nephrology
DX: R80.9 Proteinuria, unspecified (principal); N39.0 Urinary tract infection, site not specified

== ENCOUNTER → 2019-01-10 | Outpatient (REF) | payer BC ==
[2019-01-10 14:20] LABS: CREATININE, URINE 84.3 MG/DL; URINE TOTAL PROTEIN 29.2 MG/DL (0-12)
[2019-01-10 18:40] LABS: CREATININE 24 HOUR, URINE 893.5 MG/24HR (600-1800); TOTAL PROTEIN 24 HOUR URINE 309.5 MG/24HR (50-150)
== END ==
LOC: M LAB REF 13:15
PROVIDERS: ATTEND Internal Medicine Nephrology
DX: R80.9 Proteinuria, unspecified (principal)

== ENCOUNTER → 2019-01-22 | Outpatient (CLI) | payer BC ==
--- NOTE | 2019-01-22 17:40 | REP ---
Right knee five views History: Contusion There is no acute fracture or dislocation. The joint spaces are normal in appearance. An osteophyte is present on the patella. Impression: There is no acute fracture or dislocation. Electronically Signed by Javier Vyas MD 01/22/2019 05:32 P
--- NOTE | 2019-01-22 17:42 | REP ---
Right ankle four views History: Contusion There is no acute fracture or dislocation. The joint space is normal in appearance. An ossified density is present inferior to the the medial malleolus. This represents ligamentous or tendon calcification or accessory ossification center. Impression: There is no acute fracture or dislocation. Electronically Signed by Javier Vyas MD 01/22/2019 05:33 P
--- NOTE | 2019-01-22 17:44 | REP ---
Right foot four views History: Contusion There is no acute fracture or dislocation. The joint spaces are normal in appearance. Impression: There is no acute fracture or dislocation. Electronically Signed by Javier Vyas MD 01/22/2019 05:35 P
--- NOTE | 2019-01-22 17:46 | REP ---
Right wrist four views History: Contusion There is no acute fracture or dislocation. The joint spaces are normal in appearance. Impression: There is no acute fracture or dislocation. Electronically Signed by Javier Vyas MD 01/22/2019 05:37 P
--- NOTE | 2019-01-22 17:47 | REP ---
Right hand four views History: Contusion There is no acute fracture or dislocation. The joint spaces are normal in appearance. Impression: There is no acute fracture or dislocation. Electronically Signed by Javier Vyas MD 01/22/2019 05:39 P
== END ==
LOC: M WUC 13:39
PROVIDERS: ATTEND Physician Assistant
DX: S60.211A Contusion of right wrist, initial encounter (principal); S90.31XA Contusion of right foot, initial encounter; S90.01XA Contusion of right ankle, initial encounter; W18.30XA Fall on same level, unspecified, initial encounter; Y92.009 Unspecified place in unspecified non-institutional (private) residence as the place of occurrence of the external cause

== ENCOUNTER 2019-01-30 12:33 | Emergency (ER) | payer BC ==
[~2019-01-30] VITALS: Ht 180.3 cm; Wt 102.3 kg
--- NOTE | 2019-01-30 15:58 | REP ---
BILATERAL TWO VIEW KNEE SERIES: AP and lateral views of bilateral knees performed. I see no evidence of acute fracture or dislocation. There is mild medial joint space narrowing bilaterally. There is mild superior patellar spurring on the left. There may be a small left suprapatellar effusion. IMPRESSION: No acute fracture or dislocation. Electronically Signed by Mao Vergara MD 01/31/2019 04:20 P
--- NOTE | 2019-01-30 16:00 | REP ---
BILATERAL WRISTS: AP and lateral views of bilateral wrists performed. No acute fracture, dislocation or intrinsic bone disease is seen. IMPRESSION: No fracture or dislocation. Electronically Signed by Mao Vergara MD 01/31/2019 04:20 P
--- NOTE | 2019-01-30 16:05 | REP ---
BILATERAL AP LATERAL ANKLE, FOUR VIEWS: HISTORY: Fall. RIGHT ANKLE: There is no acute fracture or dislocation. The joint space is normal in appearance. A calcified density is present inferior to the medial malleolus. This represents an accessory ossification center , ligamentous or tendon calcification. IMPRESSION:There is no acute fracture or dislocation. LEFT ANKLE: There is no acute fracture or dislocation. The joint space is normal in appearance. IMPRESSION:There is no acute fracture or dislocation. Electronically Signed by Javier Vyas MD 01/30/2019 04:11 P
--- NOTE | 2019-01-30 16:06 | REP ---
BILATERAL AP AND LATERAL FOOT, FOUR VIEWS: HISTORY: Fall. RIGHT FOOT: There is no acute fracture or dislocation. The joint spaces are normal in appearance. IMPRESSION:There is no acute fracture or dislocation. LEFT FOOT: There is no acute fracture or dislocation. The joint spaces are normal in appearance. IMPRESSION:There is no acute fracture or dislocation. Electronically Signed by Javier Vyas MD 01/30/2019 04:11 P
--- NOTE | 2019-01-30 16:07 | REP ---
BILATERAL HANDS, TWO VIEWS: AP and lateral views of bilateral hands are performed and demonstrate no fracture, dislocation, or intrinsic bone disease. IMPRESSION: No fracture or dislocation. Electronically Signed by Mao Vergara MD 01/31/2019 04:20 P
[2019-01-30 16:34] VITALS: BP 134/90
== END 2019-01-30 16:45 | disposition home or self-care (01) ==
LOC: M ED 12:33
DX: S63.501A Unspecified sprain of right wrist, initial encounter (principal); S63.502A Unspecified sprain of left wrist, initial encounter; S60.221A Contusion of right hand, initial encounter; S60.222A Contusion of left hand, initial encounter; S90.31XA Contusion of right foot, initial encounter; S90.32XA Contusion of left foot, initial encounter; S80.01XA Contusion of right knee, initial encounter; S80.02XA Contusion of left knee, initial encounter; W19.XXXA Unspecified fall, initial encounter; Y92.099 Unspecified place in other non-institutional residence as the place of occurrence of the external cause; Y93.9 Activity, unspecified; Y99.9 Unspecified external cause status; E11.9 Type 2 diabetes mellitus without complications; I10 Essential (primary) hypertension; J45.909 Unspecified asthma, uncomplicated; E78.5 Hyperlipidemia, unspecified; G43.909 Migraine, unspecified, not intractable, without status migrainosus; K58.9 Irritable bowel syndrome, unspecified; K52.9 Noninfective gastroenteritis and colitis, unspecified; M48.00 Spinal stenosis, site unspecified; Z87.01 Personal history of pneumonia (recurrent); N17.9 Acute kidney failure, unspecified; Z79.4 Long term (current) use of insulin; Z79.899 Other long term (current) drug therapy; Z91.018 Allergy to other foods; Z88.2 Allergy status to sulfonamides; Z88.8 Allergy status to other drugs, medicaments and biological substances; Z88.5 Allergy status to narcotic agent

== ENCOUNTER → 2019-02-01 | Outpatient (REF) | payer BC | LOC: M LAB REF 17:03 | PROVIDERS: ATTEND Internal Medicine Nephrology | DX: N39.0 Urinary tract infection, site not specified (principal) ==

== ENCOUNTER 2019-03-23 22:51 | Inpatient (IN) | payer BC ==
[~2019-03-23] VITALS: Ht 180.3 cm; Wt 102.3 kg
[~2019-03-23 22:51] MED LIST changes: +OMEP20CA4 PO; -ROSU40TA3 PO; +ROSU40TA4 PO
[2019-03-23] MEDS ORDERED: ACETAMINOPHEN TAB 650MG DOSE (2X325MG) PO ONE (23:30)
[2019-03-23] MEDS ORDERED: NS 1,000 ML IV ONE (23:30)
[2019-03-23 23:39] LABS: BASO % 0.5 % (0.0-1.0); EOS # 0.1 10^3/uL (0.0-0.50); HEMOGLOBIN 12.4 g/dl (12.0-15.5); LYMPH # 1.2 10^3/uL (1.5-4.5); LYMPH % 14.8 % (24.0-44.0); MEAN CORPUSCULAR HEMOGLOBIN 28.5 pg (27.0-33.0); MEAN CORPUSCULAR HGB CONC 33.5 g/dl (32.0-36.5); MEAN CORPUSCULAR VOLUME 85.1 fl (80.0-96.0); MONO # 0.6 10^3/uL (0.0-0.8); NEUTROPHILS # 5.9 10^3/uL (1.8-7.7); NEUTROPHILS % 75.2 % (36.0-66.0); PLATELET COUNT, AUTOMATED 245 10^3/uL (150-450); RED BLOOD COUNT 4.35 10^6/uL (4.00-5.40); WHITE BLOOD COUNT 7.9 10^3/uL (4.0-10.0)
[2019-03-24] MEDS ORDERED: UNRESOLVED CLARIFICATION ENTRY XX SCH (00:01)
[2019-03-24 00:05] LABS: ALBUMIN 3.6 GM/DL (3.2-5.2); BILIRUBIN,TOTAL 0.6 MG/DL (0.2-1.0); CALCIUM LEVEL 9.4 MG/DL (8.5-10.1); CREATININE FOR GFR 1.13 MG/DL (0.55-1.30); GLOMERULAR FILTRATION RATE 53.8 (>51); POTASSIUM SERUM 3.5 MEQ/L (3.5-5.1); TOTAL PROTEIN 7.3 GM/DL (6.4-8.2)
[2019-03-24] MEDS ORDERED: NS 3,070 ML in APPROPRIATE DILUENT 1 EA IV ONE (00:45)
[2019-03-24] MEDS ORDERED: ZOSYN 3.375 GM VIAL (J2543) As Ordered ONE (03:22)
[2019-03-24] MEDS ORDERED: PIPERACILLIN/TAZOBACTAM SOD 3.375 GM in D5W MINI-BAG PLUS 50 ML IV ONE (03:30)
[2019-03-24] MEDS ORDERED: BYST10TA2 PO (03:54)
[2019-03-24] MEDS ORDERED: VENTAER INH (03:54)
[2019-03-24] MEDS ORDERED: TELM1TAB37 PO (03:54)
[2019-03-24] MEDS ORDERED: FLON1SPR (03:54)
[2019-03-24] MEDS ORDERED: ARTI99.0 OU (03:54)
[2019-03-24] MEDS ORDERED: LEVE1INJ5 SC (03:54)
[2019-03-24] MEDS ORDERED: CHLO25TA PO (03:54)
[2019-03-24] MEDS ORDERED: SYMB16INH INH (03:54)
[2019-03-24] MEDS ORDERED: ALB2.5NEB INH (03:54)
[2019-03-24] MEDS ORDERED: METF500T4 PO (03:54)
[2019-03-24] MEDS ORDERED: GLIM4TAB PO (03:54)
--- NOTE | 2019-03-24 04:12 | REPVR ---
EXAM: CT Abdomen and Pelvis Without Contrast EXAM DATE/TIME: 03/24/2019 2:37 AM CLINICAL HISTORY: 54 years old, female; Abdominal pain; Flank; Left; Additional info: Left flank pain, urosepsis TECHNIQUE: Imaging protocol: Axial computed tomography images of the abdomen and pelvis without contrast. Coronal and sagittal reformatted images were created and reviewed. Radiation optimization: All CT scans at this facility use at least one of these dose optimization techniques: automated exposure control; mA and/or kV adjustment per patient size (includes targeted exams where dose is matched to clinical indication); or iterative reconstruction. COMPARISON: CT ABD/PEL W/IV ORAL CONTRAS 12/17/2017 9:21 PM FINDINGS: Lungs: Minimal bibasilar fibro-atelectatic change, left greater than right. Liver: The liver attenuation is 25 Hounsfield units and the spleen is 43 Hounsfield units. Gallbladder and bile ducts: Normal. No calcified stones. No ductal dilation. Pancreas: Normal. No ductal dilation. Spleen: Normal. No splenomegaly. Adrenals: Left adrenal nodule measuring 15 x 12 x 20 mm. Kidneys and ureters: Large right renal calculus in the renal pelvis with right renal sinus edema and minimal right pelvocaliectasis. There is thickening of the urothelium of the renal pelvis and UPJ. The appearance is similar to the prior study and may be a reflection of chronic irritation, infection or possible intermittent ball-valve obstruction. Stomach and bowel: Normal. No obstruction. No mucosal thickening. Appendix: A normal appendix is seen. Intraperitoneal space: Normal. No free air. No significant fluid collection. Vasculature: Normal. No abdominal aortic aneurysm. Lymph nodes: Small lymph nodes measuring 11 mm just caudal to the GE junction. Bladder: There is bladder wall thickening, however, the bladder is nondistended and is nonspecific. Reproductive: Status post hysterectomy. Bones/joints: Fusion of spinous processes from L4-S1. Soft tissues: Subcutaneous confluence across the abdominal wall which may reflect previous subcutaneous injections. IMPRESSION: 1. Large right renal calculus in the renal pelvis conforming to the configuration of the distal pelvis and UPJ which is similar to 12/17/2017. There is right renal sinus edema and thickening of the urothelium and slight pelvocaliectasis which is similar and may reflect chronic irritation, infection or intermittent ball-valve obstruction at the UPJ. 2. Status post hysterectomy. 3. No left renal or ureteral calculi are evident and there is no evidence of left obstructive uropathy. Electronically signed by: Oscar Salazar On 03/24/2019 04:11:34 AM
[2019-03-24] MEDS: HEPARIN SOD (PORCINE) 5000 UNITS/ML VIAL SC SCH ×3 (06:00→21:54)
[2019-03-24] MEDS ORDERED: ACETAMINOPHEN TAB 650MG DOSE (2X325MG) PO ONE (07:30)
[2019-03-24] MEDS: HumaLOG INSULIN (NovoLOG) PER UNIT SC SCH ×4 (07:30→21:00)
[2019-03-24] MEDS ORDERED: FLUTICASONE PROP 0.05% NASAL SPRAY 16 GM (FLONASE) PRN (07:45)
[2019-03-24] MEDS ORDERED: GLUCOSE 4 GM CHEW TABLET PO PRN (07:45)
[2019-03-24] MEDS ORDERED: DEXTROSE 50% 50 ML SYRINGE IV PRN (07:45)
[2019-03-24] MEDS ORDERED: GLUCAGON FOR INJ 1 MG VIAL (J1610) SC PRN (07:45)
[2019-03-24] MEDS ORDERED: cefTRIAXone SOD 1 GM in D5W MINI-BAG PLUS 50 ML IV ONE (08:00)
--- NOTE | 2019-03-24 08:06 | REP ---
Clinical: Fever . Comparison: 05/08/2018 . Technique: PA and lateral. Findings: The mediastinum and cardiac silhouette are normal. The lung mixon are clear and without acute consolidation, effusion, or pneumothorax. Subtle opacity in the lateral left base cannot be excluded. The skeletal structures are intact and normal. Impression: 1. No acute cardiopulmonary process. 2. Questionable small area of opacity in the lateral left base. Electronically Signed by Wilbert Marcus MD 03/24/2019 07:58 A
[2019-03-24] MEDS: SYMBICORT 160/4.5MCG INHALER 6GM INH SCH ×2 (09:00→19:54)
[2019-03-24 10:45] VITALS: BP 120/98
[2019-03-24] MEDS ORDERED: ACETAMINOPHEN 325 MG TAB PO PRN (11:15)
[2019-03-24] MEDS ORDERED: ALBUTEROL SULFATE 2.5 MG/0.5 ML INH NEB SOLN INH PRN (11:30)
--- NOTE | 2019-03-24 11:38 | HPEPDOC ---
General Date of Admission Mar 24, 2019 at 08:48 Date of Service: Mar 24, 2019 Chief Complaint The patient is a 54-year-old female who presented to the emergency room with complaints of left-sided abdominal pain History of Present Illness Patient is a 54-year-old female with a PMHx of HTN, TIA / CVA x 3 (Most recent 10/2018), Seizure / Pseudoseizure Hx, IDDM2, DLP, Asthma, SLE, Hx of C. diff who presented to the ER with complaints of left-sided flank pain. Patient reported that on Monday she began to experience left-sided flank pain with associated blood in her urine, stool. She noted that by Monday, her symptoms had resolved. . She subsequently developed recurrence of her symptoms on Monday noted that she had fatigue, discomfort with urination, chills and fever that she measured at 102. Patient noted that she took Aleve to help alleviate her symptoms. Patient woke up on Monday with temperature of 104 , that prompted her to be evaluated in the emergency room. Currently, patient reports that she is experiencing left abdominal discomfort. She reports at 5/10 stabbing in nature, aggravated with movement, but alleviated mildly with urination and bowel movement. Patient does report associated discomfort with urination as well as fever/chills. Patient denies chest pain, shortness of breath or palpitations. She does report nausea without any vomiting. Denies any constipation or diarrhea. Patient reports that she has a weight loss of proximally 5 pounds in 2 weeks. Notes that her appetite is normal. Home Medications Scheduled Budesonide/Formoterol (Symbicort 160-4.5 Mcg Inhaler) 6 Gm Hfa.aer.ad, 2 PUFF INH BID, (Reported) Chlorthalidone (Chlorthalidone) 25 Mg Tablet, 25 MG PO DAILY, (Reported) Glimepiride (Glimepiride) 4 Mg Tablet, 8 MG PO DAILY, (Reported) Insulin Detemir (Levemir Flextouch) 100 Unit/1 Ml Insuln.pen, 47 UNIT SC BID, (Reported) Metformin HCl (Metformin HCl ER) 500 Mg Tab.er.24h, 1,000 MG PO QHS, (Reported) Nebivolol HCl (Bystolic) 10 Mg Tablet, 10 MG PO DAILY, (Reported) Telmisartan (Telmisartan) 80 Mg Tablet, 80 MG PO QHS, (Reported) Scheduled PRN Albuterol Sulfate (Albuterol Sulfate) 2.5 Mg/0.5 Ml Vial.neb, 2.5 MG INH QID PRN for SOB/WHEEZING, (Reported) Albuterol Sulfate (Ventolin Hfa) 18 Gm Hfa.aer.ad, 2 PUFF INH Q4H PRN for SOB/WHEEZING, (Reported) Fluticasone Propionate (Flonase Allergy Relief) 9.9 Ml [place].susp, 2 SPRAYS NA DAILY PRN for ALLERGIES, (Reported) Polyvinyl Alcohol (Artificial Tears) 15 Ml Drops, 1 DROP OU QID PRN for DRY EYES, (Reported) Allergies Coded Allergies: Blueberry (Verified Allergy, Severe, anaphalaxis, 03/23/19) hydroxychloroquine (Verified Allergy, Intermediate, tachycardia, 03/23/19) Sulfa (Sulfonamide Antibiotics) (Verified Allergy, Mild, hives, itching, nausea, 03/24/19) fentanyl (Verified Allergy, Mild, hives, 03/23/19) hydromorphone (Verified Allergy, Mild, hives, 03/23/19) nitrofurantoin (Verified Allergy, Mild, itching, hives, nausea, 03/24/19) prochlorperazine (Verified Allergy, Mild, itching, shaky, 03/23/19) Past Medical History Medical History HTN, TIA / CVA x 3 (Most recent 10/2018), Seizure / Pseudoseizure Hx, IDDM2, DLP, Asthma, SLE, Hx of C. 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 Review of Systems Other systems 10 point review of systems complete, all negative otherwise stated in HPI Vital Signs - Vitals: BP 120/98, HR 99, RR 21, Sat 94%RA, Temp 98.5F - General: Lying in bed, No acute distress, Speaking in full sentences, AAOx3 - HEENT: NC, AT, PERRLA, EOMI - CVS: RRR, +S1S2 - Lungs: Fair air entry bilaterally, No appreciable wheezing / rales / rhonchi - Abdomen: Soft, Non-distended, Suprapubic tenderness, Left flank tenderness - Extremities: No lower extremity edema, No calf tenderness - Neuro: No focal motor or sensory deficit - Skin: No visible rashes Laboratory Data Labs 24H Laboratory Tests 2 03/23/19 23:29: Immature Granulocyte % (Auto) 0.5, White Blood Count 7.9, Red Blood Count 4.35, Hemoglobin 12.4, Hematocrit 37.0, Mean Corpuscular Volume 85.1, Mean Corpuscular Hemoglobin 28.5, Mean Corpuscular Hemoglobin Concent 33.5, Red Cell Distribution Width 13.4, Platelet Count 245, Neutrophils (%) (Auto) 75.2H, Lymphocytes (%) (Auto) 14.8L, Monocytes (%) (Auto) 8.0H, Eosinophils (%) (Auto) 1.0, Basophils (%) (Auto) 0.5, Neutrophils # (Auto) 5.9, Lymphocytes # (Auto) 1.2L, Monocytes # (Auto) 0.6, Eosinophils # (Auto) 0.1, Basophils # (Auto) 0.0, Nucleated Red Blood Cells % (auto) 0.0, Anion Gap 10, Glomerular Filtration Rate 53.8, Lactic Acid Level 2.7*H, Blood Urea Nitrogen 12, Creatinine 1.13, Sodium Level 136, Potassium Level 3.5, Chloride Level 98, Carbon Dioxide Level 28, Calcium Level 9.4, Aspartate Amino Transf (AST/SGOT) 35, Alanine Aminotransferase (ALT/SGPT) 46, Alkaline Phosphatase 85, Total Bilirubin 0.6, Total Protein 7.3, Albumin 3.6, Albumin/Globulin Ratio 0.97L 03/24/19 00:41: Urine Color YELLOW, Urine Appearance CLOUDYH, Urine pH 7.0, Urine Specific [place] 1.010, Urine Protein NEGATIVE, Urine Glucose (UA) 1+H, Urine Ketones NEGATIVE, Urine Blood 2+H, Urine Nitrite NEGATIVE, Urine Bilirubin NEGATIVE, Urine Urobilinogen 0.2, Urine Leukocyte Esterase 3+H, Urine WBC (Auto) TNTCH, Urine RBC (Auto) 104H, Urine Hyaline Casts (Auto) 0, Urine Bacteria (Auto) 3+H, Urine Squamous Epithelial Cells 1, Urine Sperm (Auto) 03/24/19 04:17: Lactic Acid Followup at 4 Hours 1.9 03/24/19 07:27: Bedside Glucose (Misc Panel) 150H CBC/BMP Laboratory Tests 03/23/19 23:29 Red Blood Count 4.35, Mean Corpuscular Volume 85.1, Mean Corpuscular Hemoglobin 28.5, Mean Corpuscular Hemoglobin Concent 33.5, Red Cell Distribution Width 13.4, Neutrophils (%) (Auto) 75.2 H, Lymphocytes (%) (Auto) 14.8 L, Monocytes (%) (Auto) 8.0 H, Eosinophils (%) (Auto) 1.0, Basophils (%) (Auto) 0.5, Neutrophils # (Auto) 5.9, Lymphocytes # (Auto) 1.2 L, Monocytes # (Auto) 0.6, Eosinophils # (Auto) 0.1, Basophils # (Auto) 0.0, Calcium Level 9.4, Aspartate Amino Transf (AST/SGOT) 35, Alanine Aminotransferase (ALT/SGPT) 46, Alkaline Phosphatase 85, Total Bilirubin 0.6, Total Protein 7.3, Albumin 3.6 Microbiology Microbiology 03/23/19 Blood Culture, Received Pending 03/23/19 Blood Culture, Received Pending 03/24/19 Respiratory Virus Panel (PCR) ([facility]) - Final, Complete 03/24/19 Urine Culture, Received Pending Plan / VTE VTE Prophylaxis Ordered?: Yes Plan Plan Left-sided flank pain / Dysuria / Fevers and chills - likely 2/2 UTI / Pyelonephritis - Currently, patient had reported symptoms starting on Monday, that had resolved and recurred - Physical with evidence of right-sided flank pain and suprapubic tenderness - No evidence of leukocytosis; mild lactic acidosis has resolved - Blood cultures and urine cultures remain pending - CT abdomen / pelvis 03/24: 1. Large right renal calculus in the renal pelvis conforming to the configuration of the distal pelvis and UPJ which is similar to 12/17/2017. There is right renal sinus edema and thickening of the rothelium and slight pelvocaliectasis which is similar and may reflect chronic irritation, infection or intermittent ball-valve obstruction at the UPJ. 2. Status post hysterectomy. 3. No left renal or ureteral calculi are evident and there is no evidence of left obstructive uropathy. - s/p Zosyn; will continue with ceftriaxone and IV fluid hydration HTN - Blood pressure appears well controlled - Will continue with nebivolol and telmisartan with holding parameters TIA / CVA x 3 (Most recent 10/2018) - Patient is currently not on any aspirin or statin - Shell be following up with neurology as an outpatient Seizure / Pseudoseizure Hx - Patient will be following up with Neurology as an outpatient IDDM2 - Well continue with long-acting insulin, Levemir at reduced dose - Will start ISS DLP - Currently not on any medications Asthma - No evidence of exacerbation - c/w inhaled therapy as SLE - Currently patient is not on any medications Hx of C. diff - Currently has no symptoms of diarrhea DVT prophylaxis - Will start Heparin WILLIAM DWYER MD Mar 24, 2019 11:38
[2019-03-24] MEDS: LEVEMIR (INSULIN DETEMIR) 1 UNITS/0.01ML SC SCH ×2 (12:41→21:55)
[2019-03-24] MEDS: NEBIVOLOL 5 MG TAB (BYSTOLIC) PO SCH (12:42)
[2019-03-24] MEDS: traMADol 50 MG TAB PO PRN (12:43)
[2019-03-24 14:00] VITALS: BP 156/86
[2019-03-24] MEDS: IBUPROFEN 400 MG TAB PO PRN (16:36)
[2019-03-24] MEDS: NS 1,000 ML IV SCH (16:36)
[2019-03-24] MEDS: ACETAMINOPHEN 325 MG TAB PO PRN (18:46)
[2019-03-24] MEDS: TELMISARTAN 20 MG TAB PO SCH (21:55)
[2019-03-24 22:00] VITALS: BP 120/92
[2019-03-25 05:45] LABS: BASO % 0.6 % (0.0-1.0); EOS % 0.4 % (0.0-3.0); HEMOGLOBIN 10.8 g/dl (12.0-15.5); LYMPH # 1.4 10^3/uL (1.5-4.5); LYMPH % 27.4 % (24.0-44.0); MEAN CORPUSCULAR HEMOGLOBIN 28.4 pg (27.0-33.0); MEAN CORPUSCULAR HGB CONC 32.7 g/dl (32.0-36.5); MEAN CORPUSCULAR VOLUME 86.8 fl (80.0-96.0); MONO # 0.5 10^3/uL (0.0-0.8); MONO % 9.6 % (0.0-5.0); NEUTROPHILS # 3.1 10^3/uL (1.8-7.7); PLATELET COUNT, AUTOMATED 174 10^3/uL (150-450)
[2019-03-25 06:00] VITALS: BP 107/71
[2019-03-25 06:10] LABS: BLOOD UREA NITROGEN 11 MG/DL (7-18); CALCIUM LEVEL 8.6 MG/DL (8.5-10.1); CARBON DIOXIDE LEVEL 28 MEQ/L (21-32); CHLORIDE LEVEL 102 MEQ/L (98-107); CREATININE FOR GFR 0.92 MG/DL (0.55-1.30); GLOMERULAR FILTRATION RATE > 60.0 (>51); GLUCOSE, FASTING 206 MG/DL (70-100); MAGNESIUM LEVEL 1.7 MG/DL (1.8-2.4); SODIUM LEVEL 136 MEQ/L (136-145)
[2019-03-25] MEDS: NS 1,000 ML IV SCH (06:23)
[2019-03-25] MEDS: HEPARIN SOD (PORCINE) 5000 UNITS/ML VIAL SC SCH ×3 (06:23→21:27)
[2019-03-25] MEDS: SYMBICORT 160/4.5MCG INHALER 6GM INH SCH ×2 (07:56→20:03)
[2019-03-25] MEDS ORDERED: POTASSIUM CHLORIDE 10 MEQ SR TABLET PO ONE (08:00)
[2019-03-25] MEDS: NEBIVOLOL 5 MG TAB (BYSTOLIC) PO SCH (08:04)
[2019-03-25] MEDS: traMADol 50 MG TAB PO PRN ×2 (08:04→17:10)
[2019-03-25] MEDS: LEVEMIR (INSULIN DETEMIR) 1 UNITS/0.01ML SC SCH ×2 (08:05→21:27)
[2019-03-25] MEDS: HumaLOG INSULIN (NovoLOG) PER UNIT SC SCH ×4 (08:05→20:44)
[2019-03-25] MEDS ORDERED: cefTRIAXone SOD 1 GM in D5W MINI-BAG PLUS 50 ML IV SCH ×2 (09:00→16:00)
[2019-03-25] MEDS ORDERED: MAG SULF 1GM/100ML (MAG RUN) 1 GM in APPROPRIATE DILUENT 1 EA IV ONE (10:45)
--- NOTE | 2019-03-25 11:28 | IPNPDOC ---
Date Seen The patient was seen on 03/25/19. 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 difficile who presented to the ER complaining of left sided flank pain. Patient states that last Monday, while she was camping, she began experiencing left sided flank pain with associated hematuria and blood in the stool. She states that her symptoms resolved the next day. The following Monday her original symptoms recurred with additional symptoms that included fatigue, discomfort with urination, chills and fever of 102F. She admits to taking Aleve with little relief. Patient states that when she woke up on Monday, she had a fever of 104 and presented to the ER. She was unable to ambulate well on Monday due to "shaking" and had to be assisted by her and son to the vehicle. In The ER, the left flank pain was stabbing in nature and a 5/10. She admits to feeling nauseous but denies vomiting, chest pain, palpitations, shortness of breath, constipation, or diarrhea. Patient was examined at bedside. She does not feel well today and states that her neck is stiff and she has an accompanying headache that she rates as a 10/10. When questioned about her headache and neck stiffness, she states that they began on Monday and have become progressively worse. Her headache radiates from her thoracic spine to her scalp and is tender to palpation. Mrs. Rodriguez admits to waking up sweating last night and also having intermittent chills. She had a fever of 102.7 today; we will continue with ceftriaxone. She had a positive Kernig sign on examination. She states that she had trouble swallowing this morning and felt as like she was gagging when she was attempting to take her medications this am. Patient is scheduled for a lumbar puncture to r/o meningitis. She has already been treated with ceftriaxone so may not see any bacteria on culture. OBJECTIVE PHYSICAL EXAMINATION: VITAL SIGNS: Please see below. GENERAL: A 54-year-old white female lying in bed, she appears flushed and does not appear to feel well. HEENT: Positive Kernig sign, no asymmetry noted, neck and scalp tender to palpation. CARDIOVASCULAR: diminished heart sounds, tender to palpation on left anterior portion of chest wall. RESPIRATORY: clear to auscultation bilaterally ABDOMINAL: soft, normal bowel sounds, Right CVA tenderness, slight left CVA tenderness. Left lower quadrant tenderness to palpation. EXTREMITIES: Swelling noted in feet B/L. No rashes or cyanosis noted NEUROLOGICAL: negative babinski sign, hyporeflexive achilles reflex. Knee reflex needs to be repeated. CN II, III, IV, and not assessed. CN V: was unable to feel light touch B/L on her forehead. CN VII: unable to raise eyebrows. CN XI: unable to shrug left shoulder against resistance. CN XII intact. PSYCHOLOGICAL: normal affect LABORATORY DATA, IMAGING STUDIES, MICROBIOLOGY: Please see below. DVT prophylaxis ordered?: Yes, TEDs and SCDs. Holding heparin for lumbar puncture ASSESSMENT AND PLAN: Patient is a 54-year-old female with past medical history of HTN, TIA with CVA (October 2018), seizure, pseudoseizure, IDDM2, DLP, asthma, SLE, and history of C. difficile. PROBLEMS: 1. Neck stiffness, headache, photophobia, fever. Differential includes: Viral meningitis vs Migraine with aura -WBC count within normal limits -Patient scheduled for a lumbar puncture -holding heparin for lumbar puncture -c/w tramadol and acetaminophen prn for pain -trending CRPs -c/w ceftriaxone; will add doxycycline -Consulted IR for lumbar puncture -Consulted Dr. Pyle -On droplet precaution 2. Left flank pain 2/2 to UTI and Pyelonephritis -c/w IV fluids and ceftriaxone 3. Hypokalemia -supplemented with potassium -Potassium today is: 3.0 4. Hypomagnesemia -supplemented with magnesium -Magnesium today is: 1.7 5. History of TIA with CVA (October 2018) 6. Hypertension -c/w home medications 7. IDDMT2 -c/w sliding scale insulin 8. History of seizures/pseudoseizures -on seizure precautions -Patient has an appointment with Neurology in April. 9. Dyslipidemia -c/w home medications 10. Asthma -c/w albuterol inhaler prn -c/w home medications 11. SLE DVT Prophylaxis: TEDs and SCDs, holding heparin for lumbar puncture DISPOSITION: Patient is stable and prognosis is fair. Consulted Dr. Pyle; we appreciate her input. Holding heparin for scheduled lumbar puncture. Consulted Interventional Radiation. C/w ceftriaxone and IV fluids for UTI and Pyelonephritis. Will monitor her WBC count; currently within normal limits. [facility]O Vital Signs Date Time Temp Pulse Resp B/P (MAP) Pulse Ox O2 Delivery O2 Flow Rate FiO2 03/25/19 08:34 18 03/25/19 06:00 97.4 67 107/71 (83) 100 03/24/19 09:55 Room Air I&O- Last 24 Hours up to 6 AM 03/25/19 06:00 Intake Total 5040 ml Output Total 300 ml Balance 4740 ml Laboratory Data 24H LABS Laboratory Tests 2 03/24/19 11:49: Bedside Glucose (Misc Panel) 263H 03/24/19 17:16: Bedside Glucose (Misc Panel) 164H 03/24/19 20:28: Bedside Glucose (Misc Panel) 166H 03/25/19 05:25: Immature Granulocyte % (Auto) 1.0, White Blood Count 5.0, Red Blood Count 3.80L, Hemoglobin 10.8L, Hematocrit 33.0L, Mean Corpuscular Volume 86.8, Mean Corpuscular Hemoglobin 28.4, Mean Corpuscular Hemoglobin Concent 32.7, Red Cell Distribution Width 13.6, Platelet Count 174, Neutrophils (%) (Auto) 61.0, Lymphocytes (%) (Auto) 27.4, Monocytes (%) (Auto) 9.6H, Eosinophils (%) (Auto) 0.4, Basophils (%) (Auto) 0.6, Neutrophils # (Auto) 3.1, Lymphocytes # (Auto) 1.4L, Monocytes # (Auto) 0.5, Eosinophils # (Auto) 0.0, Basophils # (Auto) 0.0, Nucleated Red Blood Cells % (auto) 0.0, Anion Gap 6L, Glomerular Filtration Rate > 60.0, Blood Urea Nitrogen 11, Creatinine 0.92, Sodium Level 136, Potassium Level 3.0L, Chloride Level 102, Carbon Dioxide Level 28, Calcium Level 8.6, Magnesium Level 1.7L CBC/BMP Laboratory Tests 03/25/19 05:25 Red Blood Count 3.80 L, Mean Corpuscular Volume 86.8, Mean Corpuscular Hemoglobin 28.4, Mean Corpuscular Hemoglobin Concent 32.7, Red Cell Distribution Width 13.6, Neutrophils (%) (Auto) 61.0, Lymphocytes (%) (Auto) 27.4, Monocytes (%) (Auto) 9.6 H, Eosinophils (%) (Auto) 0.4, Basophils (%) (Auto) 0.6, Neutrophils # (Auto) 3.1, Lymphocytes # (Auto) 1.4 L, Monocytes # (Auto) 0.5, Eosinophils # (Auto) 0.0, Basophils # (Auto) 0.0, Calcium Level 8.6 Microbiology Microbiology 03/23/19 Blood Culture - Preliminary, Resulted No growth after 24 hours . All specim... 03/23/19 Blood Culture - Preliminary, Resulted No growth after 24 hours . All specim... 03/24/19 Respiratory Virus Panel (PCR) ([facility]) - Final, Complete 03/24/19 Urine Culture, Received Pending GME ATTESTATION GME ATTESTATION My faculty preceptor for this patient encounter was physically present during the encounter and was fully available. All aspects of the patient interview, examination, medical decision making process, and medical care plan development were reviewed and approved by the faculty preceptor. The faculty preceptor is aware and concurs with the plan as stated in the body of this note and will attest to such by his/her cosignature. ATTENDING NOTE I, Christina Dorsey, have independently examined this patient and performed my own physical exam, as well as reviewed the documentation and edited where necessary. I have discussed in detail with the resident / student the findings and plan of treatment as documented by the resident / student and edited their note. I agree with their findings and treatment plan and have edited their documentation. I will continue to follow the patient during this hospital stay. ABIGAIL BUTLER OMS-3 Mar 25, 2019 11:28 CHRISTINA DORSEY MD Mar 25, 2019 17:08
[2019-03-25] MEDS: ACETAMINOPHEN 325 MG TAB PO PRN (12:08)
[2019-03-25 15:11] LABS: APPEARANCE, CSF CLEAR (CLEAR); COLOR, CSF COLORLESS (COLORLESS); CSF TUBE# CELL CNT TUBE 1
[2019-03-25 15:12] LABS: APPEARANCE, CSF HAZY (CLEAR); COLOR, CSF PINK (COLORLESS); CSF TUBE# CELL CNT TUBE 4
[2019-03-25] MEDS ORDERED: PIPERACILLIN/TAZOBACTAM SOD 3.375 GM in D5W MINI-BAG PLUS 50 ML IV SCH (15:15)
[2019-03-25] MEDS ORDERED: VANCOMYCIN HCL 1,000 MG, VIAL MATE ADAPTER 1 EACH in D5W 250 ML IV SCH (15:15)
--- NOTE | 2019-03-25 15:17 | POST-OPPD ---
Postoperative Procedure Note Date Of Procedure: Mar 25, 2019 Time Of Procedure: 15:16 PREOPERATIVE DIAGNOSIS: meningitis POSTOPERATIVE DIAGNOSIS: meningitis FINDINGS: CSF clear PROCEDURE: lp SURGEON: concepcion ESTIMATED BLOOD LOSS: < 5 ml R COMPLICATIONS: none POSTOPERATIVE CONDITION: stable DAVID BARAJAS MD Mar 25, 2019 15:17
[2019-03-25 15:19] LABS: CSF TUBE# GLU TUBE 2; CSF TUBE# TP TUBE 2; GLUCOSE CSF 86 MG/DL (40-75); TOTAL PROTEIN,CSF 45 MG/DL (15-45)
[2019-03-25] MEDS: IBUPROFEN 400 MG TAB PO PRN (15:24)
[2019-03-25] MEDS ORDERED: ONDANSETRON 4MG/2ML VIAL (J2405) IV SCH (17:00)
[2019-03-25] MEDS ORDERED: ONDANSETRON 4MG/2ML VIAL (J2405) IV PRN (17:00)
[2019-03-25] MEDS: DOXYCYCLINE HYCLATE 100 MG in D5W MINI-BAG PLUS 100 ML IV SCH (17:09)
--- NOTE | 2019-03-25 17:13 | REP ---
IR fluoroscopy guided lumbar puncture. Indication: Headache. Suspected meningitis. Physician: Dr. Severino. Procedure: The patient was advised of the benefits, risks and alternatives of the procedure and informed consent was obtained. The time-out was performed with verification of the patient's name, MRN, site of procedure and type of procedure to be performed. The patient was positioned in the prone position on the angiographic table. The site was prepped and draped in the usual sterile fashion. Moderate sedation was not required. The physician spent 30 minutes continuous face to face time with the patient. A carbon paper interleafer radiograph reveals surgical hardware in the lower lumbar spine. Under fluoroscopy guidance, a 22 gauge spinal needle was used to access the spinal canal at L2-3. Clear CSF was collected per protocol. The needle was removed, pressure held and hemostasis achieved. A Sterile dressing was applied to the site. The patient tolerated the procedure well and was returned to PRU in stable condition. EBL: Less than 5 ml. Complications: None. Conclusion: Successful fluoroscopy guided lumbar puncture. Patient to follow up with referring provider for results. Thank you this referral. Electronically Signed by Gloria Severino MD 03/25/2019 05:12 P
--- NOTE | 2019-03-25 20:31 | CR ---
DATE OF CONSULTATION: 03/25/2019 Asked to consult by hospitalist for evaluation of fever, severe headache and a questionable meningitis. HISTORY OF PRESENT ILLNESS: Ruby is a pleasant 54-year-old female who presented to the hospital after she had been on a RV trip with her to [place], [place], and [place]. Her describes her as spending most of her time in the RV, very little outdoor activity. After 3 weeks of being outdoors, she did not recall any tick bites, mosquito bites. She did go pet horses. She then developed severe headache, neck stiffness. She also had mild left lower quadrant pain, dysuria and hematuria. In spite of being on IV Rocephin for the past 48 hours she has continued with high fevers and neck pain and headache have gotten worse. Dysuria has improved and hematuria has resolved. The patient also noted that she had some kind of ulceration on her right cheek with swelling of the right cheek. She is not sure if it was from a mosquito bite or from her scratching or from her presumed lupus. She denies any chest pain, shortness of breath. No cough. She has mild left lower quadrant pain but no constipation. She had some diarrhea which she described as bloody on the first day but this has resolved. 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 difficile in May 2018. PAST SURGICAL HISTORY: Tonsillectomy, shoulder arthroscopy, knee arthroscopy, hysterectomy, section, and lumbar fusion. SOCIAL HISTORY: She denies alcohol, tobacco or drug use. She is , lives with her and was on a recent RV trip to [facility]. She came back last Monday, 4 days ago. She has a dog and two puppies that were with her also on the trip. 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 PHYSICAL EXAMINATION: She is sick looking female in no acute distress. T-max today with 102.7, currently 100.9, respirations 18, pulse 99, oxygen saturation 95% on room air. Blood pressure 126/71, heart normal S1, S2. No murmurs, rubs or gallops. Lungs are clear. No wheezes, rales or rhonchi. Abdomen: Morbidly obese, soft, mildly tender in the left lower quadrant. Back: No CVA or lumbosacral tenderness. Extremities: Trace edema bilaterally. Skin: She has a few excoriating lesions on lower extremity, looks like possibly mosquito bites or bug bites. She has another ulcer on her middle back which is an erythematous, shallow ulceration with skin peeling overlying it. Another ulcer is on her right cheek measuring about 2 cm. That one has central eschar with some swollen adenopathy in the right parotid area. Neck is painful with flexion. She has mild nuchal rigidity. She also has a positive straight leg raising with neck pain. Neurologic exam intact. LABORATORY DATA: Blood cultures two sets are no growth after 24 hours. Respiratory panel was negative by PCR for influenza A, B, RSV, parainfluenza enteroviruses. CSF panel was negative as well. Urine culture is pending but according to Dr. Ana Paula Kearns, she has 55,000 gram-negative rods. Final susceptibilities pending. CSF gram stain had few RBCs, no white cells, no organisms seen. CSF has two white cells, 86 glucose, total protein 45. CT abdomen and pelvis done on 03/24/2019 shows a large right renal calculus, forming to the distal pelvis in the UP junction similar to 12/17/2017 status post hysterectomy. No left renal or ureteral calculi and no evidence of left obstructive uropathy. Urinalysis had many white cells and 104 red cells, +3 bacteria. IMPRESSION: This is a 54-year-old female who was admitted with severe headache, meningismus, fevers that have not responded to 48 hours of IV Rocephin. She has been on a recent trip outdoors in an RV but has not done much outdoor activity. She has multiple lesions on her skin that could be related to neurotic excoriations, versus lupus versus mosquito bites that she does not recall . She may have arboviral or tick borne infection that is [place] in differential. Unlikely UTI cause of persistent fever as these symptoms have improved. PLAN: 1. Continue IV ceftriaxone for urinary tract infection. The patient's urinary symptoms are improving. 2. As far as headache and neck stiffness, it could be a tick borne illness such as Babesia, Ehrlichia and Lyme disease. Lyme serology has been sent and is pending that should have responded with Rocephin. 3. Add doxycycline IV 100 mg every 12 hours to cover for Anaplasma and ehrlichiosis and [place] spotted fever as the patient has been in multiple different states including [place], [place], and [place]. Do not use vancomycin and Zosyn. The patient does not have any evidence of bacterial infection. CT abdomen only shows a large right renal calculus but her urinary symptoms have improved already. 4. Please send wound culture from her right cheek as well as an HSV culture. MTDD
[2019-03-25] MEDS: TELMISARTAN 20 MG TAB PO SCH (21:26)
[2019-03-25 22:00] VITALS: BP 149/85
[2019-03-26] MEDS: NS 1,000 ML IV SCH ×3 (02:00→16:10)
[2019-03-26] MEDS: DOXYCYCLINE HYCLATE 100 MG in D5W MINI-BAG PLUS 100 ML IV SCH ×2 (05:24→16:09)
[2019-03-26] MEDS: HEPARIN SOD (PORCINE) 5000 UNITS/ML VIAL SC SCH ×3 (05:24→21:17)
[2019-03-26 06:00] VITALS: BP 130/80
[2019-03-26 06:54] LABS: BASO % 0.2 % (0.0-1.0); EOS # 0.1 10^3/uL (0.0-0.50); EOS % 1.1 % (0.0-3.0); HEMATOCRIT 32.1 % (36.0-47.0); HEMOGLOBIN 10.7 g/dl (12.0-15.5); LYMPH # 1.7 10^3/uL (1.5-4.5); LYMPH % 38.4 % (24.0-44.0); MEAN CORPUSCULAR HEMOGLOBIN 28.4 pg (27.0-33.0); MEAN CORPUSCULAR HGB CONC 33.3 g/dl (32.0-36.5); MEAN CORPUSCULAR VOLUME 85.1 fl (80.0-96.0); MONO # 0.4 10^3/uL (0.0-0.8); MONO % 9.8 % (0.0-5.0); NEUTROPHILS # 2.2 10^3/uL (1.8-7.7); NEUTROPHILS % 49.4 % (36.0-66.0); PLATELET COUNT, AUTOMATED 174 10^3/uL (150-450); RED BLOOD COUNT 3.77 10^6/uL (4.00-5.40); WHITE BLOOD COUNT 4.5 10^3/uL (4.0-10.0)
[2019-03-26 07:26] LABS: BLOOD UREA NITROGEN 8 MG/DL (7-18); CREATININE FOR GFR 0.71 MG/DL (0.55-1.30); GLUCOSE, FASTING 187 MG/DL (70-100)
[2019-03-26 07:27] LABS: C REACTIVE PROTEIN QUANTITATIV 7.91 MG/DL (0.00-0.30); CALCIUM LEVEL 8.5 MG/DL (8.5-10.1); CARBON DIOXIDE LEVEL 27 MEQ/L (21-32); CHLORIDE LEVEL 102 MEQ/L (98-107); GLOMERULAR FILTRATION RATE > 60.0 (>51); MAGNESIUM LEVEL 1.9 MG/DL (1.8-2.4); POTASSIUM SERUM 2.9 MEQ/L (3.5-5.1); SODIUM LEVEL 137 MEQ/L (136-145)
[2019-03-26] MEDS: SYMBICORT 160/4.5MCG INHALER 6GM INH SCH ×2 (07:44→20:33)
[2019-03-26] MEDS ORDERED: POTASSIUM CHLORIDE 10% LIQ 20 MEQ/15 ML UDC PO ONE (07:45)
[2019-03-26] MEDS ORDERED: POTASSIUM CHLORIDE 10 MEQ SR TABLET PO ONE (08:00)
[2019-03-26] MEDS: LEVEMIR (INSULIN DETEMIR) 1 UNITS/0.01ML SC SCH ×2 (08:42→21:18)
[2019-03-26] MEDS: HumaLOG INSULIN (NovoLOG) PER UNIT SC SCH ×4 (08:42→21:00)
[2019-03-26] MEDS: NEBIVOLOL 5 MG TAB (BYSTOLIC) PO SCH (08:43)
[2019-03-26] MEDS ORDERED: cefTRIAXone SOD 1 GM in D5W MINI-BAG PLUS 50 ML IV SCH (09:00)
[2019-03-26] MEDS: traMADol 50 MG TAB PO PRN (10:41)
--- NOTE | 2019-03-26 11:26 | IPNPDOC ---
Date Seen The patient was seen on 03/26/19. 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 difficile who presented to the ER complaining of left sided flank pain. Patient states that last Monday, while she was camping, she began experiencing left sided flank pain with associated hematuria and blood in the stool. She states that her symptoms resolved the next day. The following Monday her original symptoms recurred with additional symptoms that included fatigue, discomfort with urination, chills and fever of 102F. She admits to taking Aleve with little relief. Patient states that when she woke up on Monday, she had a fever of 104 and presented to the ER. She was unable to ambulate well on Monday due to "shaking" and had to be assisted by her and son to the vehicle. In The ER, the left flank pain was stabbing in nature and a 5/10. She admits to feeling nauseous but denies vomiting, chest pain, palpitations, shortness of breath, constipation, or diarrhea. Patient is examined at bedside. Her headache is an 8/10 today; neck tenderness still noted on palpation. She notes that the left side of her body feels weak. Mrs. Rodriguez has burning pain in her hands and feet upon palpation. She is afeb rile today and continues to be treated for pyelonephritis. Her left flank pain is better today; last night she had dysuria. She was seen by Dr. Pyle yesterday, who suspects her illness may be secondary to a tick bite that she acquired while on vacation. We added doxycycline to her medicine regimen. PHYSICAL EXAMINATION: VITAL SIGNS: Please see below. GENERAL: A 54-year-old white female lying in bed. She is not in any acute distress. She is speaking comfortably in full sentences HEENT: Positive Kernig sign, no asymmetry noted, neck and scalp tender to palpation. CARDIOVASCULAR: diminished heart sounds, tender to palpation on left anterior portion of chest wall. RESPIRATORY: clear to auscultation bilaterally ABDOMINAL: soft, normal bowel sounds, left CVA tenderness. Left lower quadrant tenderness to palpation. No suprapubic tenderness EXTREMITIES: Swelling noted in feet B/L. No rashes or cyanosis noted NEUROLOGICAL: negative babinski sign, hyporeflexive achilles reflex. Knee reflex needs to be repeated. CN II, III, IV, and not assessed. CN V: was unable to feel light touch B/L on her forehead. CN VII: unable to raise eyebrows. CN XI: unable to shrug left shoulder against resistance. CN XII intact. PSYCHOLOGICAL: normal affect LABORATORY DATA, IMAGING STUDIES, MICROBIOLOGY: Please see below. 1. Chest X-ray 03/23/19: 1. No acute cardiopulmonary process. 2. Questionable small area of opacity in the lateral left base. 2. Abdomen/pelvis CT 03/24/19: 1. Large right renal calculus in the renal pelvis conforming to the configuration of the distal pelvis and UPJ which is similar to 12/17/2017. There is right renal sinus edema and thickening of the urothelium and slight pelvocaliectasis which is similar and may reflect chronic irritation, infection or intermittent ball-valve obstruction at the UPJ. 2. Status post hysterectomy. 3. No left renal or ureteral calculi are evident and there is no evidence of left obstructive uropathy. 3. Guided Fluoroscopy 03/25/19: Conclusion: Successful fluoroscopy guided lumbar puncture. Patient to follow up with referring provider for results. DVT prophylaxis ordered?: Yes, Heparin ASSESSMENT AND PLAN: Patient is a 54-year-old female with past medical history of HTN, TIA with CVA (October 2018), seizure, pseudoseizure, IDDM2, DLP, asthma, SLE, and history of C. difficile PROBLEMS: 1. Neck stiffness, headache, photophobia, fever. Differential includes: Migraine vs Babesia vs Ehrlichia vs Lyme disease vs Anaplasma vs Eagel mountain spotted fever -WBC count within normal limits -Lumbar puncture 03/25/19 Dr. Severino -c/w tramadol and acetaminophen prn for pain -CRP elevated -c/w ceftriaxone and doxycycline -On droplet precaution -CSF PCR negative, No organisms seen on CSF gram stain. -Blood cultures negative for growth -Lyme, babesia, anaplasma, ehrlichia titers pending 2. Left flank pain 2/2 to UTI and Pyelonephritis -c/w IV fluids and ceftriaxone 3. Ulceration on cheek -wound culture requested by Dr. Pyle -Herpes simplex I and II pending 4. Hypokalemia -supplemented with potassium -Potassium today is: 2.9 5. Hypomagnesemia -supplemented yesterday, levels are now within normal limits 6. History of TIA with CVA (October 2018) 7. Hypertension -c/w home medications 8. IDDMT2 -c/w sliding scale insulin 9. History of seizures/pseudoseizures -on seizure precautions -Patient has an appointment with Neurology in April. 10. Dyslipidemia -c/w home medications 11. Asthma -c/w albuterol inhaler prn -c/w home medications 12. SLE DISPOSITION: Patient is stable and prognosis is fair. She continues to be treated for pyelonephritis. We consulted Dr. Pyle, who suspects Mrs. Rodriguez's illness may be secondary to a tick bite. Serology titers are pending. Will co ntinue with Rocephin, Doxycycline, and IV fluids. We appreciate Dr. Pyle and Dr. Severino for their assistance. I saw and evaluated the patient. I agree with the findings and plan of care as documented in the above note VS, I&O, 24H, Fishbone Vital Signs/I&O Vital Signs Date Time Temp Pulse Resp B/P (MAP) Pulse Ox O2 Delivery O2 Flow Rate FiO2 03/26/19 10:41 20 03/26/19 08:43 77 128/74 03/26/19 06:00 97.8 94 03/24/19 09:55 Room Air I&O- Last 24 Hours up to 6 AM 03/26/19 06:00 Intake Total 2520 ml Output Total 1600 ml Balance 920 ml Laboratory Data 24H LABS Laboratory Tests 2 03/25/19 10:54: 03/25/19 13:50: CSF Appearance HAZYH, CSF Color PINKH, CSF WBC (Auto) 4, CSF RBC (Auto) 4, CSF Glucose (Tube 1) TUBE 2, CSF Total Protein (Tube 1) TUBE 2, CSF Cell Count Tube # TUBE 4, CSF Polynuclear WBCs (%) , CSF Glucose 86H, CSF Total Protein 45 03/26/19 06:22: Immature Granulocyte % (Auto) 1.1, White Blood Count 4.5, Red Blood Count 3.77L, Hemoglobin 10.7L, Hematocrit 32.1L, Mean Corpuscular Volume 85.1, Mean Corpuscular Hemoglobin 28.4, Mean Corpuscular Hemoglobin Concent 33.3, Red Cell Distribution Width 13.2, Platelet Count 174, Neutrophils (%) (Auto) 49.4, Lymphocytes (%) (Auto) 38.4, Monocytes (%) (Auto) 9.8H, Eosinophils (%) (Auto) 1.1, Basophils (%) (Auto) 0.2, Neutrophils # (Auto) 2.2, Lymphocytes # (Auto) 1.7, Monocytes # (Auto) 0.4, Eosinophils # (Auto) 0.1, Basophils # (Auto) 0.0, Nucleated Red Blood Cells % (auto) 0.0, Anion Gap 8, Glomerular Filtration Rate > 60.0, Blood Urea Nitrogen 8, Creatinine 0.71, Sodium Level 137, Potassium Level 2.9*L, Chloride Level 102, Carbon Dioxide Level 27, Calcium Level 8.5, Magnesium Level 1.9, C-Reactive Protein, Quantitative 7.91H CBC/BMP Laboratory Tests 03/26/19 06:22 Red Blood Count 3.77 L, Mean Corpuscular Volume 85.1, Mean Corpuscular Hemoglobin 28.4, Mean Corpuscular Hemoglobin Concent 33.3, Red Cell Distribution Width 13.2, Neutrophils (%) (Auto) 49.4, Lymphocytes (%) (Auto) 38.4, Monocytes (%) (Auto) 9.8 H, Eosinophils (%) (Auto) 1.1, Basophils (%) (Auto) 0.2, Neutrophils # (Auto) 2.2, Lymphocytes # (Auto) 1.7, Monocytes # (Auto) 0.4, Eosinophils # (Auto) 0.1, Basophils # (Auto) 0.0, Calcium Level 8.5 Microbiology Microbiology 03/23/19 Blood Culture - Preliminary, Resulted No Growth after 48 hours. All Specime... 03/23/19 Blood Culture - Preliminary, Resulted No Growth after 48 hours. All Specime... 03/25/19 Gram Stain - Final, Resulted 03/25/19 CSF Culture, Resulted Pending 03/25/19 - Final, Complete 03/24/19 Respiratory Virus Panel (PCR) ([facility]) - Final, Complete 03/24/19 Urine Culture - Final, Complete Escherichia Coli 03/25/19 Herpes Simplex Virus I (PCR), Received Pending 03/25/19 Herpes Simplex Virus II (PCR), Received Pending 03/25/19 Gram Stain - Final, Resulted 03/25/19 Wound Culture, Resulted Pending [facility] [place]-[facility] Mar 26, 2019 11:26 WESLEY MCKINNON MD Mar 26, 2019 17:02
[2019-03-26] MEDS: ACETAMINOPHEN 325 MG TAB PO PRN (12:54)
[2019-03-26 14:00] VITALS: BP 147/85
[2019-03-26] MEDS ORDERED: EXCEDRIN MIGRAINE TABLET PO PRN (15:00)
[2019-03-26] MEDS: IBUPROFEN 400 MG TAB PO PRN (16:08)
[2019-03-26 16:51] LABS: BLOOD UREA NITROGEN 8 MG/DL (7-18); CARBON DIOXIDE LEVEL 28 MEQ/L (21-32); CHLORIDE LEVEL 101 MEQ/L (98-107); CREATININE FOR GFR 0.84 MG/DL (0.55-1.30); GLOMERULAR FILTRATION RATE > 60.0 (>51); GLUCOSE, FASTING 226 MG/DL (70-100); POTASSIUM SERUM 3.5 MEQ/L (3.5-5.1); SODIUM LEVEL 137 MEQ/L (136-145)
--- NOTE | 2019-03-26 18:31 | IPN ---
DATE: 03/26/2019 Ruby continues to complain of headache and neck pain. She also complains of lesions that keep coming out which feel like a burning feeling and then they become vesicles and then ulcerate. She has had similar lesions in the past but not as many. She has no nausea, vomiting or diarrhea. Left lower quadrant pain and dysuria has markedly improved. LABORATORY DATA: White count is 4.5, hemoglobin 10.7, hematocrit 32.1, sodium 137, potassium 3.5, chloride 101, bicarbonate 28, BUN 8, creatinine 0.84, glucose 226, calcium 9, CRP 7.91. Urine culture had E. coli resistant only ampicillin and levofloxacin, about 50,000 colony forming units. CSF PCR was negative. CSF white cells was 2. Wound lesion from the cheek HSV PCR and wound cultures are pending. On physical exam, temperature is 101.3, pulse 95, respirations 17, blood pressure 147/85, oxygen saturation 95% on room air. Heart: Normal S1, S2, no murmurs, rubs or gallops. Lungs are clear. No wheezes, rales, or rhonchi. Abdomen: Mildly tender in the left lower quadrant. No rebound. No hepatosplenomegaly. Extremities: Trace edema. Skin: Multiple small erythematous lesions which are measuring about less than a centimeter. Some of them are ulcerated, some on lower extremity on the back, upper shoulders. Total may be less than 15. IMPRESSION: 1. Symptomatic UTI with E. coli on IV Rocephin. 2. Persistent fever. Rule out viral illness. Rule out tick-borne illness. On IV doxycycline. Babesia, Ehrlichia, Anaplasma and Lyme disease serology is pending and PCR. 3. Rash. If new lesions persist, consider obtaining consultation from dermatology, Dr. Zapata. PLAN: 1. Discontinue droplet isolation, this is not meningitis. 2. Consider switching IV ceftriaxone to oral cephalosporins tomorrow. Waiting for serology for tick-borne illnesses and PCR testing. Consider dermatology consult if skin lesions continue.
[2019-03-26] MEDS: TELMISARTAN 20 MG TAB PO SCH (21:17)
[2019-03-26 22:00] VITALS: BP 130/70
[2019-03-27 00:07] LABS: IgG P18 AB Present (.); IgG P23 AB Present (.); IgG P28 AB Present (.); IgG P30 AB Absent (.); IgG P39 AB Present (.); IgG P41 AB Present (.); IgG P45 AB Absent (.); IgG P66 AB Absent (.); IgG P93 AB Present (.); IgM P23 AB Absent (.); IgM P39 AB Absent (.); IgM P41 AB Absent (.); LYME IgG WB INTERPRETATION Positive (.); LYME IgM WB INTERPRETATION Negative (.)
[2019-03-27] MEDS: NS 1,000 ML IV SCH (05:13)
[2019-03-27] MEDS: DOXYCYCLINE HYCLATE 100 MG in D5W MINI-BAG PLUS 100 ML IV SCH (05:13)
[2019-03-27] MEDS: HEPARIN SOD (PORCINE) 5000 UNITS/ML VIAL SC SCH ×3 (05:14→21:30)
[2019-03-27 06:00] VITALS: BP 128/92
[2019-03-27 06:17] LABS: BASO % 0.7 % (0.0-1.0); HEMATOCRIT 32.1 % (36.0-47.0); HEMOGLOBIN 10.5 g/dl (12.0-15.5); LYMPH # 2.1 10^3/uL (1.5-4.5); LYMPH % 50.2 % (24.0-44.0); MEAN CORPUSCULAR HEMOGLOBIN 27.5 pg (27.0-33.0); MEAN CORPUSCULAR HGB CONC 32.7 g/dl (32.0-36.5); MONO # 0.5 10^3/uL (0.0-0.8); NEUTROPHILS # 1.4 10^3/uL (1.8-7.7); NEUTROPHILS % 33.6 % (36.0-66.0); PLATELET COUNT, AUTOMATED 215 10^3/uL (150-450); RED BLOOD COUNT 3.82 10^6/uL (4.00-5.40); WHITE BLOOD COUNT 4.1 10^3/uL (4.0-10.0)
[2019-03-27 06:43] LABS: BLOOD UREA NITROGEN 7 MG/DL (7-18); C REACTIVE PROTEIN QUANTITATIV 4.96 MG/DL (0.00-0.30); CARBON DIOXIDE LEVEL 29 MEQ/L (21-32); CHLORIDE LEVEL 105 MEQ/L (98-107); CREATININE FOR GFR 0.81 MG/DL (0.55-1.30); GLOMERULAR FILTRATION RATE > 60.0 (>51); GLUCOSE, FASTING 143 MG/DL (70-100); MAGNESIUM LEVEL 1.7 MG/DL (1.8-2.4); POTASSIUM SERUM 3.4 MEQ/L (3.5-5.1); SODIUM LEVEL 139 MEQ/L (136-145)
[2019-03-27] MEDS: SYMBICORT 160/4.5MCG INHALER 6GM INH SCH ×2 (07:48→19:49)
[2019-03-27] MEDS: LEVEMIR (INSULIN DETEMIR) 1 UNITS/0.01ML SC SCH ×2 (08:28→21:30)
[2019-03-27] MEDS: HumaLOG INSULIN (NovoLOG) PER UNIT SC SCH ×4 (08:29→21:00)
[2019-03-27] MEDS: CEFDINIR 300 MG CAP (OMNICEF) PO SCH ×2 (08:30→21:29)
[2019-03-27] MEDS: NEBIVOLOL 5 MG TAB (BYSTOLIC) PO SCH (08:34)
[2019-03-27] MEDS: MAG SULF 1GM/100ML (MAG RUN) 1 GM in APPROPRIATE DILUENT 1 EA IV SCH ×2 (08:34→10:34)
[2019-03-27] MEDS ORDERED: POTASSIUM CHLORIDE 10 MEQ SR TABLET PO ONE (09:00)
--- NOTE | 2019-03-27 13:57 | IPNPDOC ---
Date Seen The patient was seen on 03/27/19. 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 difficile who presented to the ER complaining of left sided flank pain. Patient states that last Monday, while she was camping, she began experiencing left sided flank pain with associated hematuria and blood in the stool. She states that her symptoms resolved the next day. The following Monday her original symptoms recurred with additional symptoms that included fatigue, discomfort with urination, chills and fever of 102F. She admits to taking Aleve with little relief. Patient states that when she woke up on Monday, she had a fever of 104 and presented to the ER. She was unable to ambulate well on Monday due to "shaking" and had to be assisted by her and son to the vehicle. In The ER, the left flank pain was stabbing in nature and a 5/10. She admits to feeling nauseous but denies vomiting, chest pain, palpitations, shortness of breath, constipation, or diarrhea. Patient was examined at bedside. She states that she is feeling better than she did yesterday. She had an episode of black tarry diarrhea this morning but denies nausea or vomiting. Patient noticed that her right arm was swelling, her IV access was moved to another location and no additional swelling has been noted. She was hypertensive this am but has been afebrile and denies chills. Her serology came back positive for Lyme disease; we will continue to treat her with doxycycline. OBJECTIVE PHYSICAL EXAMINATION: VITAL SIGNS: Please see below. GENERAL: A 54-year-old white female lying in bed. She is not in any acute distress. She is speaking comfortably in full sentences HEENT: NC AT, neck is supple, rash like lesion noted on right cheek CARDIOVASCULAR: diminished heart sounds, Regular rate and rhythm RESPIRATORY: clear to auscultation bilaterally ABDOMINAL: soft, normal bowel sounds, left CVA tenderness. Left lower quadrant tenderness to palpation. No suprapubic tenderness EXTREMITIES: Swelling noted in feet B/L. No rashes or cyanosis noted NEUROLOGICAL: negative babinski sign, hyporeflexive achilles reflex. Knee reflex needs to be repeated. CN II, III, IV, and not assessed. CN V: was unable to feel light touch B/L on her forehead. CN VII: unable to raise eyebrows. CN XI: unable to shrug left shoulder against resistance. CN XII intact. PSYCHOLOGICAL: normal affect LABORATORY DATA, IMAGING STUDIES, MICROBIOLOGY: Please see below. 1. Chest X-ray 03/23/19: 1. No acute cardiopulmonary process. 2. Questionable small area of opacity in the lateral left base. 2. Abdomen/pelvis CT 03/24/19: 1. Large right renal calculus in the renal pelvis conforming to the configuration of the distal pelvis and UPJ which is similar to 12/17/2017. There is right renal sinus edema and thickening of the urothelium and slight pelvocaliectasis which is similar and may reflect chronic irritation, infection or intermittent ball-valve obstruction at the UPJ. 2. Status post hysterectomy. 3. No left renal or ureteral calculi are evident and there is no evidence of left obstructive uropathy. 3. Guided Fluoroscopy 03/25/19: Conclusion: Successful fluoroscopy guided lumbar puncture. Patient to follow up with referring provider for results. DVT prophylaxis ordered?: Yes, heparin ASSESSMENT AND PLAN: Patient is a 54-year-old female with past medical history of HTN, TIA with CVA (October 2018), seizure, pseudoseizure, IDDM2, DLP, asthma, SLE, and history of C. difficile. PROBLEMS: 1. Neck stiffness, headache, photophobia, fever 2/2 lyme disease -WBC count within normal limits -Lumbar puncture 03/25/19 Dr. Severino -c/w tramadol and acetaminophen prn for pain -CRP elevated at 4.9 -c/w doxycycline 10-14 days -CSF PCR negative, No organisms seen on CSF gram stain. -Blood cultures negative for growth -02/27 Lyme IgG titers positive 2. Left flank pain 2/2 to UTI and Pyelonephritis -c/w IV fluids -s/p ceftriaxone, c/w oral cefdinir 3. Ulceration on cheek -wound culture requested by Dr. Pyle -wound culture positive for S. aureus -Herpes simplex I and II pending -If rash continues to get worse, consider referring patient to Dr. Padilla 4. Hypokalemia -supplemented with potassium -Potassium today is: 3.4 5. Hypomagnesemia -supplemented -magnesium level 1.7 today 6. History of TIA with CVA (October 2018) 7. Hypertension -c/w home medications 8. IDDMT2 -c/w sliding scale insulin 9. History of seizures/pseudoseizures -on seizure precautions -Patient has an appointment with Neurology in April. 10. Dyslipidemia -c/w home medications 11. Asthma -c/w albuterol inhaler prn -c/w home medications 12. Diarrhea -may be 2/2 to antibiotics -given lactobacillus acidophilus 12. SLE DISPOSITION: Patient is stable and prognosis is good. Continue treating patient with doxycycline for lyme disease. IV ceftriaxone has been changed to oral Omnicef for UTI management. She will work with PT and OT. We appreciate Dr. Pyle for her input. We will hopefully discharge in next 24-48 hours. I saw and evaluated the patient. I agree with the findings and plan of care as documented in the above note VS, I&O, 24H, Fishbone Vital Signs/I&O Vital Signs Date Time Temp Pulse Resp B/P (MAP) Pulse Ox O2 Delivery O2 Flow Rate FiO2 03/27/19 08:34 84 167/92 03/27/19 06:00 97.4 18 95 03/24/19 09:55 Room Air I&O- Last 24 Hours up to 6 AM 03/27/19 06:00 Intake Total 1880 ml Output Total 300 ml Balance 1580 ml Laboratory Data 24H LABS Laboratory Tests 2 03/26/19 16:11: Anion Gap 8, Glomerular Filtration Rate > 60.0, Blood Urea Nitrogen 8, Creatinine 0.84, Sodium Level 137, Potassium Level 3.5#, Chloride Level 101, Carbon Dioxide Level 28, Calcium Level 9.0 03/26/19 16:16: Bedside Glucose (Misc Panel) 234H 03/26/19 20:42: Bedside Glucose (Misc Panel) 248H 03/27/19 05:44: Anion Gap 5L, Glomerular Filtration Rate > 60.0, Blood Urea Nitrogen 7, Creati nine 0.81, Sodium Level 139, Potassium Level 3.4L, Chloride Level 105, Carbon Dioxide Level 29, Calcium Level 9.0, Immature Granulocyte % (Auto) 1.5, White Blood Count 4.1, Red Blood Count 3.82L, Hemoglobin 10.5L, Hematocrit 32.1L, Mean Corpuscular Volume 84.0, Mean Corpuscular Hemoglobin 27.5, Mean Corpuscular Hemoglobin Concent 32.7, Red Cell Distribution Width 13.6, Platelet Count 215, Neutrophils (%) (Auto) 33.6L, Lymphocytes (%) (Auto) 50.2H, Monocytes (%) (Auto) 13.0H, Eosinophils (%) (Auto) 1.0, Basophils (%) (Auto) 0.7, Neutrophils # (Auto) 1.4L, Lymphocytes # (Auto) 2.1, Monocytes # (Auto) 0.5, Eosinophils # (Auto) 0.0, Basophils # (Auto) 0.0, Nucleated Red Blood Cells % (auto) 0.0, Magnesium Level 1.7L, C-Reactive Protein, Quantitative 4.96H 03/27/19 11:32: Bedside Glucose (Misc Panel) 217H CBC/BMP Laboratory Tests 03/26/19 16:11 Calcium Level 9.0 03/27/19 05:44 Calcium Level 9.0, Red Blood Count 3.82 L, Mean Corpuscular Volume 84.0, Mean Corpuscular Hemoglobin 27.5, Mean Corpuscular Hemoglobin Concent 32.7, Red Cell Distribution Width 13.6, Neutrophils (%) (Auto) 33.6 L, Lymphocytes (%) (Auto) 50.2 H, Monocytes (%) (Auto) 13.0 H, Eosinophils (%) (Auto) 1.0, Basophils (%) (Auto) 0.7, Neutrophils # (Auto) 1.4 L, Lymphocytes # (Auto) 2.1, Monocytes # (Auto) 0.5, Eosinophils # (Auto) 0.0, Basophils # (Auto) 0.0 Microbiology Microbiology 03/23/19 Blood Culture - Preliminary, Resulted No Growth after 72 hours. All specime... 03/23/19 Blood Culture - Preliminary, Resulted No Growth after 72 hours. All specime... 03/25/19 Gram Stain - Final, Complete 03/25/19 CSF Culture - Final, Complete 03/25/19 - Final, Complete 03/24/19 Respiratory Virus Panel (PCR) ([facility]) - Final, Complete 03/24/19 Urine Culture - Final, Complete Escherichia Coli 03/25/19 Herpes Simplex Virus I (PCR), Received Pending 03/25/19 Herpes Simplex Virus II (PCR), Received Pending 03/25/19 Gram Stain - Final, Resulted 03/25/19 Wound Culture - Preliminary, Resulted Staphylococcus Aureus [facility] [place]-3 Mar 27, 2019 13:57 WESLEY MCKINNON MD Mar 29, 2019 11:52
[2019-03-27 14:00] VITALS: BP 164/82
[2019-03-27] MEDS: LACTOBACILLUS ACIDOPHILUS CAP (BACID) PO SCH (18:58)
[2019-03-27] MEDS: ACETAMINOPHEN 325 MG TAB PO PRN (21:29)
[2019-03-27] MEDS: DOXYCYCLINE HYCLATE 100 MG TAB PO SCH (21:29)
[2019-03-27] MEDS: TELMISARTAN 20 MG TAB PO SCH (21:30)
[2019-03-27 22:00] VITALS: BP 138/81
[2019-03-28 06:00] VITALS: BP 159/88
[2019-03-28] MEDS: HEPARIN SOD (PORCINE) 5000 UNITS/ML VIAL SC SCH ×2 (06:20→13:22)
[2019-03-28 06:27] LABS: BASO % 0.6 % (0.0-1.0); EOS # 0.1 10^3/uL (0.0-0.50); EOS % 2.2 % (0.0-3.0); HEMATOCRIT 32.2 % (36.0-47.0); HEMOGLOBIN 10.5 g/dl (12.0-15.5); LYMPH # 2.5 10^3/uL (1.5-4.5); LYMPH % 45.1 % (24.0-44.0); MEAN CORPUSCULAR HEMOGLOBIN 28.2 pg (27.0-33.0); MEAN CORPUSCULAR HGB CONC 32.6 g/dl (32.0-36.5); MEAN CORPUSCULAR VOLUME 86.6 fl (80.0-96.0); MONO # 0.6 10^3/uL (0.0-0.8); MONO % 10.1 % (0.0-5.0); NEUTROPHILS # 2.2 10^3/uL (1.8-7.7); NEUTROPHILS % 40.3 % (36.0-66.0); PLATELET COUNT, AUTOMATED 251 10^3/uL (150-450); RED BLOOD COUNT 3.72 10^6/uL (4.00-5.40); WHITE BLOOD COUNT 5.5 10^3/uL (4.0-10.0)
[2019-03-28 06:51] LABS: BLOOD UREA NITROGEN 11 MG/DL (7-18); C REACTIVE PROTEIN QUANTITATIV 2.75 MG/DL (0.00-0.30); CARBON DIOXIDE LEVEL 30 MEQ/L (21-32); CHLORIDE LEVEL 105 MEQ/L (98-107); CREATININE FOR GFR 0.74 MG/DL (0.55-1.30); GLOMERULAR FILTRATION RATE > 60.0 (>51); GLUCOSE, FASTING 140 MG/DL (70-100); MAGNESIUM LEVEL 1.8 MG/DL (1.8-2.4); POTASSIUM SERUM 3.3 MEQ/L (3.5-5.1); SODIUM LEVEL 140 MEQ/L (136-145)
[2019-03-28] MEDS ORDERED: DOXY100T PO ×2 (07:38→12:31)
[2019-03-28] MEDS ORDERED: CEFD300CAP PO ×2 (07:38→12:31)
[2019-03-28] MEDS ORDERED: POTASSIUM CHLORIDE 10% LIQ 20 MEQ/15 ML UDC PO ONE (07:45)
[2019-03-28 08:04] VITALS: BP 120/80
[2019-03-28] MEDS: NEBIVOLOL 5 MG TAB (BYSTOLIC) PO SCH (08:04)
[2019-03-28] MEDS: DOXYCYCLINE HYCLATE 100 MG TAB PO SCH (08:05)
[2019-03-28] MEDS: CEFDINIR 300 MG CAP (OMNICEF) PO SCH (08:05)
[2019-03-28] MEDS: LACTOBACILLUS ACIDOPHILUS CAP (BACID) PO SCH (08:05)
[2019-03-28] MEDS: LEVEMIR (INSULIN DETEMIR) 1 UNITS/0.01ML SC SCH (08:06)
[2019-03-28] MEDS: HumaLOG INSULIN (NovoLOG) PER UNIT SC SCH ×2 (08:08→13:23)
[2019-03-28] MEDS: SYMBICORT 160/4.5MCG INHALER 6GM INH SCH (08:14)
--- NOTE | 2019-03-28 10:37 | DS.PDOC ---
Discharge Summary General Date of Admission Mar 24, 2019 at 08:48 Date of Discharge March 28, 2019 Attending Physician: WESLEY MCKINNON MD Specialist/Consultants Involve: Fernando Pyle MD Specialist/Consultants Involve Maycol Castro M.D. Discharge Summary PROCEDURES PERFORMED DURING STAY: Lumbar puncture 03/25/19: Successful fluoroscopy guided lumbar puncture. Patient to follow up with referring provider for results ADMITTING DIAGNOSES: 1. UTI 2. Pyelonephritis 3. History of TIA with CVA 4. Hypertension 5. Insulin dependent diabetes mellitus 6. History of seizures/pseudoseizures 7. Dyslipidemia 8. Asthma 9. SLE 10. History of C. difficile DISCHARGE DIAGNOSES: 1. Lyme disease 2. Pyelonephritis 3. UTI 4. Ulceration on cheek 5. Hypokalemia 6. Hypomagnesemia 7. History of TIA with CVA 8. Hypertension 9. Insulin dependent diabetes mellitus 10. History of seizures/pseudoseizures 11. Dyslipidemia 12. Asthma 13. Diarrhea 14. SLE COMPLICATIONS/CHIEF COMPLAINT: Pyelonephritis. HISTORY OF PRESENT ILLNESS: Patient is a 54-year-old female with past medical history of HTN, TIA with CVA (October 2018), seizure, pseudoseizure, IDDM2, DLP, asthma, SLE, and history of C. difficile who presented to the ER complaining of left sided flank pain. Patient states that last Monday, while she was camping, she began experiencing left sided flank pain with associated hematuria and blood in the stool. She states that her symptoms resolved the next day. The following Monday her original symptoms recurred with additional symptoms that included fatigue, discomfort with urination, chills and fever of 102F. She admits to taking Aleve with little relief. Patient states that when she woke up on Monday, she had a fever of 104 and presented to the ER. She was unable to ambulate well on Monday due to "shaking" and had to be assisted by her and son to the vehicle. In The ER, the left flank pain was stabbing in nature and a 5/10. She admits to feeling nauseous but denies vomiting, chest pain, palpitations, shortness of breath, constipation, or diarrhea. HOSPITAL COURSE: Upon admission patient had unremarkable chest x-ray and ab domen/pelvis CT. She was started on Ceftriaxone and IV fluids for UTI and Pyelonephritis following an abnormal urinalysis. On day #2 of admission she began complaining of severe headache and neck stiffness accompanied by a 103.3F fever. Lumbar puncture CSF PCR was negative and CSF gram stain was negative for growth. Dr. Pyle was consulted and suspected a tick borne illness. Patient started on doxycycline while serology tests were pending. Mrs. Rodriguez had 7/10 positive IgG Lyme titers and continued to be treated with doxycycline. Her respiratory virus panel was negative. She developed a few rash like lesions during admission. Patient is advised to consider obtaining consultation from dermatology, Dr. Padilla, upon discharge if lesions persist. Patient received PT and OT clearance. Patient is being discharged on 5 days of oral cefdinir for UTI and 21 days total of doxycycline for lyme disease, as recommended by Dr. Pyle. She is recommended to follow up with her PCP in 7-10 days. DISCHARGE MEDICATIONS: Please see below. ALLERGIES: Please see below. PHYSICAL EXAMINATION ON DISCHARGE: VITAL SIGNS: Please see below. GENERAL: A 54-year-old white female lying in bed. She is not in any acute distress. She is speaking comfortably in full sentences HEENT: NC AT, neck is supple CARDIOVASCULAR: diminished heart sounds, Regular rate and rhythm RESPIRATORY: clear to auscultation bilaterally ABDOMINAL: soft, normal bowel sounds. No suprapubic, left lower quadrant, or CVA tenderness to palpation EXTREMITIES: Swelling noted in feet B/L. No rashes or cyanosis noted NEUROLOGICAL: CN II-XII intact. patient has numbness and tingling noted in hands and feet. She has difficulty flexing and extending fingers. PSYCHOLOGICAL: normal affect LABORATORY DATA: Please see below. IMAGIN. Chest X-ray 03/23/19: 1. No acute cardiopulmonary process. 2. Questionable small area of opacity in the lateral left base. 2. Abdomen/pelvis CT 03/24/19: 1. Large right renal calculus in the renal pelvis conforming to the configuration of the distal pelvis and UPJ which is similar to 12/17/2017. There is right renal sinus edema and thickening of the urothelium and slight pelvocaliectasis which is similar and may reflect chronic irritation, infection or intermittent ball-valve obstruction at the UPJ. 2. Status post hysterectomy. 3. No left renal or ureteral calculi are evident and there is no evidence of left obstructive uropathy. 3. Guided Fluoroscopy 03/25/19: Conclusion: Successful fluoroscopy guided lumbar puncture. Patient to follow up with referring provider for results. PROGNOSIS: Fair ACTIVITY: As tolerated DIET: Regular diet DISPOSITION: Patient being discharge home DISCHARGE INSTRUCTIONS: 1. Return to the Emergency room in the case of an emergency ITEMS TO FOLLOWUP ON ON OUTPATIENT: 1. Follow up with PCP in 7-10 days DISCHARGE CONDITION: Stable I saw and evaluated the patient. I agree with the findings and plan of care as documented in the documenters note. I spent 45 minutes coordinating this patient's discharge. Vital Signs/I&Os Vital Signs Date Time Temp Pulse Resp B/P (MAP) Pulse Ox O2 Delivery O2 Flow Rate FiO2 03/28/19 08:04 78 120/80 03/28/19 06:00 97.6 18 96 03/24/19 09:55 Room Air I&O- Last 24 Hours up to 6 AM 03/28/19 06:00 Intake Total 2560 ml Output Total 440 ml Balance 2120 ml Laboratory Data Labs 24H Laboratory Tests 2 03/27/19 11:32: Bedside Glucose (Misc Panel) 217H 03/27/19 16:26: Bedside Glucose (Misc Panel) 260H 03/27/19 20:56: Bedside Glucose (Misc Panel) 237H 03/28/19 05:22: Immature Granulocyte % (Auto) 1.7, White Blood Count 5.5, Red Blood Count 3.72L, Hemoglobin 10.5L, Hematocrit 32.2L, Mean Corpuscular Volume 86.6, Mean Corpuscular Hemoglobin 28.2, Mean Corpuscular Hemoglobin Concent 32.6, Red Cell Distribution Width 13.6, Platelet Count 251, Neutrophils (%) (Auto) 40.3, Lymphocytes (%) (Auto) 45.1H, Monocytes (%) (Auto) 10.1H, Eosinophils (%) (Auto) 2.2, Basophils (%) (Auto) 0.6, Neutrophils # (Auto) 2.2, Lymphocytes # (Auto) 2.5, Monocytes # (Auto) 0.6, Eosinophils # (Auto) 0.1, Basophils # (Auto) 0.0, Nucleated Red Blood Cells % (auto) 0.0, Anion Gap 5L, Glomerular Filtration Rate > 60.0, Blood Urea Nitrogen 11#, Creatinine 0.74, Sodium Level 140, Potassium Level 3.3L, Chloride Level 105, Carbon Dioxide Level 30, Calcium Level 9.0, Magnesium Level 1.8, C-Reactive Protein, Quantitative 2.75H CBC/BMP Laboratory Tests 03/28/19 05:22 Red Blood Count 3.72 L, Mean Corpuscular Volume 86.6, Mean Corpuscular Hemoglobin 28.2, Mean Corpuscular Hemoglobin Concent 32.6, Red Cell Distribution Width 13.6, Neutrophils (%) (Auto) 40.3, Lymphocytes (%) (Auto) 45.1 H, Mon ocytes (%) (Auto) 10.1 H, Eosinophils (%) (Auto) 2.2, Basophils (%) (Auto) 0.6, Neutrophils # (Auto) 2.2, Lymphocytes # (Auto) 2.5, Monocytes # (Auto) 0.6, Eosinophils # (Auto) 0.1, Basophils # (Auto) 0.0, Calcium Level 9.0 FSBS Laboratory Tests Test 03/27/19 11:32 03/27/19 16:26 03/27/19 20:56 Range/Units Bedside Glucose (Misc Panel) 217 260 237 70-105 MG/DL Microbiology Microbiology 03/23/19 Blood Culture - Preliminary, Resulted No Growth after 72 hours. All specime... 03/23/19 Blood Culture - Preliminary, Resulted No Growth after 72 hours. All specime... 03/25/19 Gram Stain - Final, Complete 03/25/19 CSF Culture - Final, Complete 03/25/19 - Final, Complete 03/24/19 Respiratory Virus Panel (PCR) (REK[facility]) - Final, Complete 03/24/19 Urine Culture - Final, Complete Escherichia Coli 03/25/19 Herpes Simplex Virus I (PCR), Received Pending 03/25/19 Herpes Simplex Virus II (PCR), Received Pending 03/25/19 Gram Stain - Final, Complete 03/25/19 Wound Culture - Final, Complete Staphylococcus Aureus Staphylococcus Aureus#2 Discharge Medications Scheduled Budesonide/Formoterol (Symbicort 160-4.5 Mcg Inhaler) 6 Gm Hfa.aer.ad, 2 PUFF INH BID, (Reported) Cefdinir (Cefdinir) 300 Mg Capsule, 300 MG PO BID Chlorthalidone (Chlorthalidone) 25 Mg Tablet, 25 MG PO DAILY, (Reported) Doxycycline Hyclate (Doxycycline Hyclate) 100 Mg Tablet, 100 MG PO BID Glimepiride (Glimepiride) 4 Mg Tablet, 8 MG PO DAILY, (Reported) Insulin Detemir (Levemir Flextouch) 100 Unit/1 Ml Insuln.pen, 47 UNIT SC BID, (Reported) Metformin HCl (Metformin HCl ER) 500 Mg Tab.er.24h, 1,000 MG PO QHS, (Reported) Nebivolol HCl (Bystolic) 10 Mg Tablet, 10 MG PO DAILY, (Reported) Telmisartan (Telmisartan) 80 Mg Tablet, 80 MG PO QHS, (Reported) Scheduled PRN Albuterol Sulfate (Albuterol Sulfate) 2.5 Mg/0.5 Ml Vial.neb, 2.5 MG INH QID PRN for SOB/WHEEZING, (Reported) Albuterol Sulfate (Ventolin Hfa) 18 Gm Hfa.aer.ad, 2 PUFF INH Q4H PRN for SOB/WHEEZING, (Reported) Fluticasone Propionate (Flonase Allergy Relief) 9.9 Ml [place].susp, 2 SPRAYS NA DAILY PRN for ALLERGIES, (Reported) Polyvinyl Alcohol (Artificial Tears) 15 Ml Drops, 1 DROP OU QID PRN for DRY EYES, (Reported) Allergies Coded Allergies: Blueberry (Verified Allergy, Severe, anaphalaxis, 03/23/19) hydroxychloroquine (Verified Allergy, Intermediate, tachycardia, 03/23/19) Sulfa (Sulfonamide Antibiotics) (Verified Allergy, Mild, hives, itching, nausea, 03/24/19) fentanyl (Verified Allergy, Mild, hives, 03/23/19) hydromorphone (Verified Allergy, Mild, hives, 03/23/19) nitrofurantoin (Verified Allergy, Mild, itching, hives, nausea, 03/24/19) prochlorperazine (Verified Allergy, Mild, itching, shaky, 03/23/19) ABIGAIL BUTLER S-3 Mar 28, 2019 10:36 WESLEY MCKINNON MD Mar 31, 2019 14:49
[2019-03-28 14:00] VITALS: BP 135/71
[2019-03-29 00:11] LABS: BABESIOSIS LEVEL IGG <1:10 (Neg:<1:10); BABESIOSIS LEVEL IGM <1:10 (Neg:<1:10)
== END 2019-03-28 13:57 | disposition home or self-care (01) | DRG 463 ==
LOC: M ED 22:51 → M ED INP 03-24 08:48 → M MSPAV 03-24 10:31
PROVIDERS: ADMIT Internal Medicine; ATTEND Internal Medicine
PROC: 009U3ZX Drainage of Spinal Canal, Percutaneous Approach, Diagnostic (ICD-10-PCS; principal; 2019-03-25 16:00)
DX: N39.0 Urinary tract infection, site not specified (principal); A69.20 Lyme disease, unspecified; M32.9 Systemic lupus erythematosus, unspecified; E83.42 Hypomagnesemia; E11.9 Type 2 diabetes mellitus without complications; I10 Essential (primary) hypertension; E87.6 Hypokalemia; E78.5 Hyperlipidemia, unspecified; J45.909 Unspecified asthma, uncomplicated; Z86.73 Personal history of transient ischemic attack (TIA), and cerebral infarction without residual deficits; B96.29 Other Escherichia coli [E. coli] as the cause of diseases classified elsewhere; Z79.899 Other long term (current) drug therapy; Z79.4 Long term (current) use of insulin; Z88.2 Allergy status to sulfonamides; Z88.8 Allergy status to other drugs, medicaments and biological substances; L98.499 Non-pressure chronic ulcer of skin of other sites with unspecified severity; G40.909 Epilepsy, unspecified, not intractable, without status epilepticus

== ENCOUNTER → 2019-04-25 | Outpatient (CLI) | payer BC ==
[~2019-04-25] MED LIST changes: +ALB2.5NEB INH; -ARTI99.0 OU; +ARTIDRO2 OU; +CEFD300CAP PO; +DOXY100T PO; +LEVE1INJ5 SC; +METF-791 PO; +RANI-356 PO; -RANI1TAB6 PO
[2019-04-25 16:47] LABS: BASO # 0.1 10^3/uL (0.0-0.2); BASO % 1.2 % (0.0-1.0); EOS # 0.3 10^3/uL (0.0-0.5); HEMATOCRIT 39.3 % (36.0-47.0); HEMOGLOBIN 12.6 g/dl (12.0-15.5); LYMPH # 2.5 10^3/uL (1.5-5.0); MEAN CORPUSCULAR HEMOGLOBIN 27.6 pg (27.0-33.0); MEAN CORPUSCULAR HGB CONC 32.1 g/dl (32.0-36.5); MEAN CORPUSCULAR VOLUME 86.2 fl (80.0-96.0); MONO # 0.5 10^3/uL (0.0-0.8); MONO % 5.4 % (0.0-5.0); NEUTROPHILS # 5.2 10^3/uL (1.5-8.5); NEUTROPHILS % 60.4 % (36.0-66.0); PLATELET COUNT, AUTOMATED 337 10^3/uL (150-450); RED BLOOD COUNT 4.56 10^6/uL (4.00-5.40); WHITE BLOOD COUNT 8.7 10^3/uL (4.0-10.0)
[2019-04-25 17:26] LABS: ERYTHROCYTE SEDIMENTATION RATE 47 mm/hr (0-30)
== END ==
LOC: M WUC 12:34
PROVIDERS: ATTEND Internal Medicine Infectious Disease
DX: A69.20 Lyme disease, unspecified (principal)

== ENCOUNTER → 2019-04-25 | Outpatient (REF) | payer BC | LOC: M SFHCPLAZ 12:08 | PROVIDERS: ATTEND Internal Medicine Infectious Disease | DX: A69.20 Lyme disease, unspecified (principal); R19.7 Diarrhea, unspecified ==

== ENCOUNTER → 2019-08-02 | Outpatient (CLI) | payer BC ==
[~2019-08-02] MED LIST changes: -GLIM1TAB PO; +GLIM1TAB2 PO; -GLIM4TAB PO; +GLIM4TAB3 PO; +OMEP-172 PO; -OMEP20CA4 PO; -OMEP40CA2 PO; +OMEP40CA97 PO; -RANI-356 PO; +RANI-397 PO
== END ==
LOC: M PLALAB 12:08
PROVIDERS: ATTEND Surgery
DX: N64.52 Nipple discharge (principal); N64.4 Mastodynia; Z80.3 Family history of malignant neoplasm of breast

== ENCOUNTER → 2019-08-28 | Outpatient (REF) | payer BC ==
[2019-08-28 14:11] LABS: ALBUMIN 3.9 GM/DL (3.2-5.2); CREATININE FOR GFR 1.15 MG/DL (0.55-1.30); GLOMERULAR FILTRATION RATE 52.8 (>51); MAGNESIUM LEVEL 1.6 MG/DL (1.8-2.4); PHOSPHORUS LEVEL 3.3 MG/DL (2.5-4.9); POTASSIUM SERUM 3.6 MEQ/L (3.5-5.1)
== END ==
LOC: M LAB REF 12:59
PROVIDERS: ATTEND Internal Medicine Nephrology
DX: N18.2 Chronic kidney disease, stage 2 (mild) (principal); E83.42 Hypomagnesemia

== ENCOUNTER → 2019-09-13 | Outpatient (CLI) | payer BC ==
[~2019-09-13] MED LIST changes: -GLIM1TAB2 PO; +GLIM1TAB4 PO; -GLIM4TAB3 PO; +GLIM4TAB5 PO; -OMEP-172 PO; +OMEP1CAP73 PO
--- NOTE | 2019-09-13 13:37 | REP ---
DIGITAL DIAGNOSTIC BILATERAL MAMMOGRAPHY WITH CAD, 3D TOMOGRAPHY, AND SUBAREOLAR SONOGRAPHY ON THE LEFT: HISTORY: Clear nipple discharge on the left side times 1 year. Comparison mammography. October 04, 2018. MAMMOGRAPHIC FINDINGS: Scattered fibroglandular elements are again noted. There is a stable nodule containing benign calcification in the right breast laterally. No suspicious nodule or architectural distortion is seen on the left or elsewhere on the right. No worrisome skin change is seen. No suspicious microcalcification is seen on either side. Mammographic findings are unchanged. SONOGRAPHIC FINDINGS: The left breast is scanned in the subareolar region. Normal stromal elements are seen. No cyst, mass, or dilated ducts are appreciated. IMPRESSION: BIRADS 1: BI-RADS/ACR category 1 mammogram. Negative Mammogram. BI-RADS category 1 negative imaging findings. Clinical followup is advised. Repeat screening mammography recommended in 1 year. This mammogram was interpreted with the aid of an FDA-approved computer-aided detection system. The patient states she had a clinical breast exam in August 2019. This patient's estimated Tyrer-Cuzick lifetime risk assessment for the breast cancer is 11.2%.
== END ==
LOC: M WHC 10:07
PROVIDERS: ATTEND Surgery
DX: N64.52 Nipple discharge (principal); R92.1 Mammographic calcification found on diagnostic imaging of breast
CPT/HCPCS: 76642; 77066; G0279

== ENCOUNTER → 2019-09-19 | Outpatient (REF) | payer BC ==
[2019-09-19 18:01] LABS: BASO # 0.1 10^3/uL (0.0-0.2); BASO % 0.8 % (0.0-1.0); EOS # 0.2 10^3/uL (0.0-0.5); EOS % 2.8 % (0.0-3.0); HEMATOCRIT 42.1 % (36.0-47.0); HEMOGLOBIN 13.6 g/dl (12.0-15.5); LYMPH # 2.4 10^3/uL (1.5-5.0); LYMPH % 28.6 % (24.0-44.0); MEAN CORPUSCULAR HEMOGLOBIN 27.3 pg (27.0-33.0); MEAN CORPUSCULAR HGB CONC 32.3 g/dl (32.0-36.5); MEAN CORPUSCULAR VOLUME 84.4 fl (80.0-96.0); MONO # 0.4 10^3/uL (0.0-0.8); MONO % 4.6 % (0.0-5.0); NEUTROPHILS # 5.3 10^3/uL (1.5-8.5); NEUTROPHILS % 62.6 % (36.0-66.0); PLATELET COUNT, AUTOMATED 425 10^3/uL (150-450); RED BLOOD COUNT 4.99 10^6/uL (4.00-5.40); WHITE BLOOD COUNT 8.5 10^3/uL (4.0-10.0)
[2019-09-19 18:08] LABS: ALBUMIN 4.2 GM/DL (3.2-5.2); ALT/SGPT 50 U/L (12-78); BILIRUBIN,TOTAL 0.4 MG/DL (0.2-1.0); BLOOD UREA NITROGEN 21 MG/DL (7-18); C REACTIVE PROTEIN QUANTITATIV 1.39 MG/DL (0.00-0.30); CALCIUM LEVEL 9.9 MG/DL (8.5-10.1); CARBON DIOXIDE LEVEL 28 MEQ/L (21-32); CHLORIDE LEVEL 95 MEQ/L (98-107); COMPLEMENT C3 229 MG/DL (90-180); COMPLEMENT C4 47 MG/DL (10-40); CREATININE FOR GFR 1.17 MG/DL (0.55-1.30); GLOMERULAR FILTRATION RATE 51.7 (>51); GLUCOSE, FASTING 367 MG/DL (70-100); POTASSIUM SERUM 3.7 MEQ/L (3.5-5.1); RHEUMATOID FACTOR QUANT < 10.0 IU/ML (<15.0); SODIUM LEVEL 132 MEQ/L (136-145); TOTAL PROTEIN 8.3 GM/DL (6.4-8.2)
[2019-09-19 18:21] LABS: ERYTHROCYTE SEDIMENTATION RATE 53 mm/hr (0-30)
[2019-09-22 08:39] LABS: CYCLIC CITRULLINATED PEPTIDE 17 units (0-19); RNP ANTIBODY 7.1 AI (0.0-0.9); SMITHS ANTIBODY < 0.2 AI (0.0-0.9)
== END ==
LOC: M SFHCRHEU 11:44
PROVIDERS: ATTEND Internal Medicine
DX: M25.50 Pain in unspecified joint (principal); R76.8 Other specified abnormal immunological findings in serum

== ENCOUNTER 2019-11-03 18:54 | Emergency (ER) | payer BC ==
[~2019-11-03] VITALS: Ht 180.3 cm; Wt 100.0 kg
[~2019-11-03 18:54] MED LIST changes: -ARTIDRO2 OU; +POLYOPD OU
[2019-11-03] MEDS ORDERED: NS 1,000 ML IV ONE (19:45)
[2019-11-03 20:08] LABS: BASO # 0.1 10^3/uL (0.0-0.2); BASO % 0.8 % (0.0-1.0); EOS # 0.2 10^3/uL (0.0-0.5); EOS % 2.7 % (0.0-3.0); HEMATOCRIT 39.5 % (36.0-47.0); HEMOGLOBIN 12.8 g/dl (12.0-15.5); LYMPH # 2.1 10^3/uL (1.5-5.0); LYMPH % 28.6 % (24.0-44.0); MEAN CORPUSCULAR HEMOGLOBIN 27.7 pg (27.0-33.0); MEAN CORPUSCULAR HGB CONC 32.4 g/dl (32.0-36.5); MEAN CORPUSCULAR VOLUME 85.5 fl (80.0-96.0); MONO # 0.5 10^3/uL (0.0-0.8); MONO % 6.4 % (0.0-5.0); NEUTROPHILS # 4.5 10^3/uL (1.5-8.5); PLATELET COUNT, AUTOMATED 342 10^3/uL (150-450); RED BLOOD COUNT 4.62 10^6/uL (4.00-5.40); WHITE BLOOD COUNT 7.4 10^3/uL (4.0-10.0)
[2019-11-03 20:15] LABS: INR 1.05; PARTIAL THROMBOPLASTIN TIME 26.7 SECONDS (25.0-38.4); PROTHROMBIN TIME 13.4 SECONDS (11.8-14.0)
[2019-11-03 20:27] LABS: ALBUMIN 3.7 GM/DL (3.2-5.2); ALT/SGPT 46 U/L (12-78); BILIRUBIN,DIRECT 0.1 MG/DL (0.0-0.2); BILIRUBIN,TOTAL 0.3 MG/DL (0.2-1.0); CK-MB VALUE MASS < 1.0 NG/ML (<3.6); CPK CREATINE PHOSPHOKINASE 34 U/L (26-192); LIPASE 262 U/L (73-393); MB/CK RELATIVE INDEX 2.94 (< OR =4); TOTAL PROTEIN 7.7 GM/DL (6.4-8.2); TROPONIN I < 0.02 NG/ML (< 0.10)
[2019-11-03] MEDS ORDERED: ISOVUE-370 76% 100ML VIAL (Q9967) As Ordered ONE (20:35)
--- NOTE | 2019-11-03 22:01 | REPVR ---
PROCEDURE INFORMATION: Exam: CT Chest With Contrast Exam date and time: 11/03/2019 8:55 PM Age: 54 years old Clinical indication: Cough, chest pain TECHNIQUE: Imaging protocol: Computed tomography of the chest with intravenous contrast. Radiation optimization: All CT scans at this facility use at least one of these dose optimization techniques: automated exposure control; mA and/or kV adjustment per patient size (includes targeted exams where dose is matched to clinical indication); or iterative reconstruction. Contrast material: ISO 370; Contrast volume: 100 ml; Contrast route: IV; COMPARISON: SR - CT ANGIO CHEST 02/17/2016 5:06:38 PM (The report from this study was not available for review at the time of this interpretation.) FINDINGS: Limitations: Respiratory motion artifact degrades the image quality. Lungs: The lungs are clear. There is no lung consolidation, pulmonary infarct, or mass. No emphysematous changes or interstitial lung disease is noted. Pleural space: There is increased pleural fat along the left lower lobe, which is similar in appearance compared to the prior CTA chest on 02/17/2016. No pleural effusion or pneumothorax is noted. Heart: No cardiomegaly is noted. There is a trace amount of pericardial fluid. Mediastinum: No mediastinal mass, hemorrhage, or pneumomediastinum is noted. Pulmonary arteries: The main pulmonary arteries are patent. This study was not dedicated for the evaluation of the lobar, segmental, and subsegmental pulmonary arteries. Aorta: There is no thoracic aortic aneurysm, pseudoaneurysm, penetrating atherosclerotic ulcer, intramural hematoma, or dissection. Great vessels off aortic arch: The brachiocephalic artery, imaged proximal portion of the left common carotid artery, and left subclavian artery are intact. No significant stenosis or occlusion of these vessels is noted. Lymph nodes: Normal. No enlarged lymph nodes. Bones/joints: There is an old healed fracture deformity of the left posterior 10th rib. No acute fracture or dislocation is noted. There is no suspicious osteolytic or osteoblastic lesion. Soft tissues: Unremarkable. Other findings: Refer to the CT abdomen and pelvis report on 11/03/2019 for details regarding the abdominal and pelvic findings. IMPRESSION: No acute findings in the chest. Clear lungs. Electronically signed by: Marvin Ferguson On 11/03/2019 22:00:53 PM
--- NOTE | 2019-11-03 22:01 | REPVR ---
PROCEDURE INFORMATION: Exam: CT Abdomen And Pelvis With Contrast Exam date and time: 11/03/2019 8:55 PM Age: 54 years old Clinical indication: Cough, chest pain, abd pain TECHNIQUE: Imaging protocol: Computed tomography of the abdomen and pelvis with intravenous contrast. Radiation optimization: All CT scans at this facility use at least one of these dose optimization techniques: automated exposure control; mA and/or kV adjustment per patient size (includes targeted exams where dose is matched to clinical indication); or iterative reconstruction. Contrast material: ISO 370; Contrast volume: 100 ml; Contrast route: IV; COMPARISON: CT ABD PELVIS W/O CONTRAST 03/24/2019 2:33 AM SR - CT ANGIO CHEST 02/17/2016 5:06:38 PM FINDINGS: Limitations: Respiratory motion artifact degrades the image quality. Lungs: Refer to the CT chest report on 11/03/2019 for details. Heart: Refer to the CT chest report on 11/03/2019 for details. Liver: The attenuation of the liver is more than 40 Hounsfield units lower in attenuation compared to the spleen, which is compatible with fatty liver infiltration. No liver lesion is seen. The contour of the liver is smooth. The liver is enlarged and measures 17.6 cm in craniocaudal dimension at the level of the right midclavicular line. Gallbladder and bile ducts: No calcified gallstones are noted. No gallbladder wall thickening, pericholecystic fluid, or pericholecystic inflammatory changes are identified. No dilation of the intrahepatic or extrahepatic bile ducts is noted. Pancreas: Normal. No dilation of the main pancreatic duct is noted. There is no inflammatory fat stranding around the pancreas to suggest acute pancreatitis. Spleen: Normal. No splenomegaly is noted. Adrenals: There is a 12 mm left adrenal nodule that measures 97 Hounsfield units, which is stable compared to the prior CT abdomen and pelvis on 03/24/2019 and CTA chest on 02/17/2016 and for which follow-up is not necessary. The right adrenal gland is normal. Kidneys and ureters: There is a 21 mm calculus in the right renal pelvis with associated urothelial thickening, which is similar in appearance compared to the prior CT abdomen and pelvis on 03/24/2019. No stones are noted in the left kidney or in the ureters. There is no hydronephrosis or hydroureter. There are no wedge-shaped areas of low attenuation in the kidneys to suggest pyelonephritis. There is no renal abscess or perinephric fluid collection. There is an 11 mm benign-appearing cyst in the superior 3rd of the left kidney, which is stable compared to the prior CT abdomen and pelvis on 03/24/2019 and for which follow-up is not necessary. Stomach and bowel: There is no evidence for a bowel obstruction, diverticulosis, diverticulitis, perforated viscus, pneumatosis intestinalis, intussusception, or volvulus. The majority of the colon is decompressed, limiting its optimal evaluation. There is no aileen-intestinal inflammatory fat stranding. Appendix: Normal. There is no evidence for appendicitis. Intraperitoneal space: Unremarkable. No fluid collection. No free air. Retroperitoneal space: Unremarkable. No fluid collection. No mass. Vasculature: The abdominal aorta is patent, normal in caliber, and there is no dissection. The iliac arteries, common femoral arteries, renal arteries, celiac artery, superior mesenteric artery, and inferior mesenteric artery are patent. There are mild atherosclerotic calcifications. The portal veins, splenic vein, superior mesenteric vein, inferior mesenteric vein, and renal veins are patent. Incidental note is made of small round calcifications in the pelvis, which are compatible with phleboliths. Lymph nodes: No enlarged lymph nodes. Bladder: There is thickening of the wall of the partially distended urinary bladder. No stones are noted in the bladder. Reproductive: There has been a hysterectomy. No adnexal mass is noted. Bones/joints: No fracture or dislocation is noted. There is no suspicious osteolytic or osteoblastic lesion. There is a clamp fixating the spinous processes of L4 and L5 and another clamp fixating the spinous processes of L5 and S1. There are degenerative changes in the lumbar spine. There is mild osteoarthritis of both hip joints. Soft tissues: There is chronic thickening of the subcutaneous tissues in the anterior abdominal wall that is similar in appearance compared to the prior CT on 03/24/2019. No hernia is noted. IMPRESSION: 1. Thickening of the wall of the urinary bladder, which may be secondary to its partially distended state, bladder wall hypertrophy, or cystitis. Correlation with urinalysis is suggested. 2. 21 mm calculus in the right renal pelvis with associated urothelial thickening, which is similar in appearance compared to the prior CT abdomen and pelvis on 03/24/2019. 3. Enlarged, fatty liver. Electronically signed by: Marvin Ferguson On 11/03/2019 22:00:32 PM
--- NOTE | 2019-11-03 22:05 | REPVR ---
PROCEDURE INFORMATION: Exam: CT Head Without Contrast Exam date and time: 11/03/2019 8:55 PM Age: 54 years old Clinical indication: Pain; Headache; Additional info: Intermittent left sided weakness, HX of CVA TECHNIQUE: Imaging protocol: Computed tomography of the head without contrast. Radiation optimization: All CT scans at this facility use at least one of these dose optimization techniques: automated exposure control; mA and/or kV adjustment per patient size (includes targeted exams where dose is matched to clinical indication); or iterative reconstruction. COMPARISON: CT Head without contrast 05/08/2018 5:20 AM MRI-Brain without Contrast 08/06/2018 12:08:59 PM (The report from this study was not available for review at the time of this interpretation.) FINDINGS: Brain: There is no evidence for an acute large vessel territorial infarct, intracranial hemorrhage, mass, mass effect, or herniation. The cortical gyration pattern, basal ganglia, thalami, and cerebellum are normal in appearance. Brainstem: Unremarkable. Midline shift: There is no midline shift. Ventricles: Normal. No ventriculomegaly. Bones/joints: Unremarkable. No acute fracture. Sinuses: Visualized sinuses are well aerated. No fluid levels. Mastoid air cells: Visualized mastoid air cells are well aerated. Soft tissues: Unremarkable. IMPRESSION: No acute intracranial abnormality. Electronically signed by: Marvin Ferguson On 11/03/2019 22:04:41 PM
[2019-11-03] MEDS ORDERED: POTASSIUM CHLORIDE 10 MEQ SR TABLET PO ONE (22:45)
[2019-11-03] MEDS ORDERED: LOPERAMIDE 2 MG CAPLET PO ONE (22:45)
[2019-11-03 23:05] VITALS: BP 136/71
--- NOTE | 2019-11-04 11:37 | ED PDOC ---
Post-Departure Follow-Up dr cabral faxed formal report of ct abd/p for fu Dominic Cotter MD Nov 04, 2019 11:37
--- NOTE | 2019-11-05 09:37 | ECGEPIP ---
[facility] Test Date: 2019-11-03 Pat Name: NEEMA ANDERSON Department: Room: - Gender: Female Cane Splicer: GABE : [id number] Requested By: BALWINDER Doyle Order Number: [id number] Reading MD: Adriano Martines Measurements Intervals [place] Rate: 84 P: 15 [place]: 192 QRS: 1 QRSD: 89 T: 49 QT: 356 QTc: 422 Interpretive Statements SINUS RHYTHM MINIMAL VOLTAGE CRITERIA FOR LVH, CONSIDER NORMAL VARIANT NONSPECIFIC T-WAVE ABNORMALITY Prior on 05/08/18 at 5:12, no significant changes Electronically Signed on 11-05-2019 9:37:20 EDT by Adriano Martines
== END 2019-11-03 23:10 | disposition home or self-care (01) ==
LOC: M ED 18:54 → EDBD 18:54 → M ED 23:10
DX: K52.9 Noninfective gastroenteritis and colitis, unspecified (principal); E87.6 Hypokalemia; E11.9 Type 2 diabetes mellitus without complications; Z86.73 Personal history of transient ischemic attack (TIA), and cerebral infarction without residual deficits; Z86.19 Personal history of other infectious and parasitic diseases; K76.0 Fatty (change of) liver, not elsewhere classified; R16.0 Hepatomegaly, not elsewhere classified; N20.0 Calculus of kidney; N32.89 Other specified disorders of bladder; Z79.4 Long term (current) use of insulin; Z79.899 Other long term (current) drug therapy; Z91.018 Allergy to other foods; Z88.2 Allergy status to sulfonamides; Z88.5 Allergy status to narcotic agent; Z88.8 Allergy status to other drugs, medicaments and biological substances
CPT/HCPCS: 36415; 70450; 71260; 74177; 80047; 80076; 82550; 82553; 83605; 83690; 84484; 85025; 85610; 85730; 87040; 87486; 87507; 87581; 87633; 87798; 93005; 93041; 96360; 96361; 99284; Q9967

== ENCOUNTER → 2019-12-11 | Outpatient (CLI) | payer BC | LOC: M LABSMTC 10:07 | PROVIDERS: ATTEND Family Medicine | DX: Z11.59 Encounter for screening for other viral diseases (principal); Z20.828 Contact with and (suspected) exposure to other viral communicable diseases ==

== ENCOUNTER → 2020-05-27 | Outpatient (REF) | payer BC ==
[~2020-05-27] MED LIST changes: -METF-791 PO; +METF-838 PO
== END ==
LOC: M LAB REF 12:43
PROVIDERS: ATTEND Physician Assistant Medical
DX: N39.0 Urinary tract infection, site not specified (principal)

== ENCOUNTER → 2020-07-09 | Outpatient (CLI) | payer BC ==
[2020-07-09 13:38] LABS: BASO # 0.1 10^3/uL (0.0-0.2); BASO % 0.7 % (0.0-1.0); EOS # 0.2 10^3/uL (0.0-0.5); EOS % 2.5 % (0.0-3.0); HEMOGLOBIN 12.5 g/dl (12.0-15.5); LYMPH # 2.5 10^3/uL (1.5-5.0); LYMPH % 26.1 % (24.0-44.0); MEAN CORPUSCULAR HEMOGLOBIN 27.6 pg (27.0-33.0); MEAN CORPUSCULAR HGB CONC 32.1 g/dl (32.0-36.5); MEAN CORPUSCULAR VOLUME 86.1 fl (80.0-96.0); MONO # 0.6 10^3/uL (0.0-0.8); MONO % 6.3 % (0.0-5.0); NEUTROPHILS # 6.2 10^3/uL (1.5-8.5); PLATELET COUNT, AUTOMATED 430 10^3/uL (150-450); RED BLOOD COUNT 4.53 10^6/uL (4.00-5.40); WHITE BLOOD COUNT 9.6 10^3/uL (4.0-10.0)
[2020-07-09 13:40] LABS: AMORPHOUS SEDIMENT SMALL (NEGATIVE); APPEARANCE, URINE TURBID (CLEAR); BACTERIA, URINE AUTO NEGATIVE (NEGATIVE); BILIRUBIN, URINE AUTO NEGATIVE (NEGATIVE); BLOOD, URINE BLOOD 2+ (NEGATIVE); COLOR, URINE YELLOW (YELLOW); GLUCOSE, URINE (UA) AUTO 2+ mg/dL (NEGATIVE); KETONE, URINE AUTO NEGATIVE (NEGATIVE); LEUKOCYTE ESTERASE, URINE AUTO 3+ (NEGATIVE); MUCUS, URINE SMALL (NEGATIVE); NITRITE, URINE AUTO NEGATIVE (NEGATIVE); PROTEIN, URINE AUTO 1+ mg/dL (NEGATIVE); RBC, URINE AUTO 30 /HPF (0-3); SPECIFIC GRAVITY URINE AUTO 1.011 (1.002-1.035); SQUAMOUS EPITHELIAL CELL UR AU 4 /HPF (0-6); UROBILINOGEN, URINE AUTO 0.2 mg/dL (0.0-2.0); WBC, URINE AUTO TNTC /HPF (0-3)
[2020-07-09 14:03] LABS: ALBUMIN 3.7 GM/DL (3.2-5.2); BILIRUBIN,TOTAL 0.3 MG/DL (0.2-1.0); CALCIUM LEVEL 9.8 MG/DL (8.5-10.1); CHOLESTEROL RISK RATIO 6.159 (<5); CREATININE FOR GFR 1.08 MG/DL (0.55-1.30); GLOMERULAR FILTRATION RATE 56.5 (>51); POTASSIUM SERUM 4.8 MEQ/L (3.5-5.1)
[2020-07-09 14:16] LABS: CREATININE, URINE 66.6 MG/DL; MAU/CREAT RATIO 199.6 MCG/MG (0.0-30.0)
[2020-07-09 14:28] LABS: HEMOGLOBIN A1c 8.2 %
== END ==
LOC: M WUC 10:30
PROVIDERS: ATTEND Physician Assistant Medical
DX: E11.40 Type 2 diabetes mellitus with diabetic neuropathy, unspecified (principal); I10 Essential (primary) hypertension; N39.0 Urinary tract infection, site not specified; R30.0 Dysuria

== ENCOUNTER → 2020-07-09 | Outpatient (REF) | payer BC | LOC: M LAB REF 12:53 | PROVIDERS: ATTEND Physician Assistant Medical | DX: N76.0 Acute vaginitis (principal) ==

== ENCOUNTER → 2020-07-27 | Outpatient (CLI) | payer BC ==
[2020-07-27 16:33] LABS: APPEARANCE, URINE TURBID (CLEAR); BACTERIA, URINE AUTO 2+ (NEGATIVE); BILIRUBIN, URINE AUTO NEGATIVE (NEGATIVE); BLOOD, URINE BLOOD 3+ (NEGATIVE); COLOR, URINE AMBER (YELLOW); GLUCOSE, URINE (UA) AUTO 1+ mg/dL (NEGATIVE); KETONE, URINE AUTO NEGATIVE (NEGATIVE); LEUKOCYTE ESTERASE, URINE AUTO 3+ (NEGATIVE); MUCUS, URINE SMALL (NEGATIVE); NITRITE, URINE AUTO NEGATIVE (NEGATIVE); PROTEIN, URINE AUTO 2+ mg/dL (NEGATIVE); RBC, URINE AUTO TNTC /HPF (0-3); SPECIFIC GRAVITY URINE AUTO 1.018 (1.002-1.035); SQUAMOUS EPITHELIAL CELL UR AU 31 /HPF (0-6); UROBILINOGEN, URINE AUTO 0.2 mg/dL (0.0-2.0); WBC, URINE AUTO TNTC /HPF (0-3)
== END ==
LOC: M WUC 12:18
PROVIDERS: ATTEND Physician Assistant Medical
DX: N39.0 Urinary tract infection, site not specified (principal)

== ENCOUNTER → 2020-08-31 | Outpatient (REF) | payer BC ==
[2020-08-31 17:10] LABS: APPEARANCE, URINE HAZY (CLEAR); BACTERIA, URINE AUTO 1+ (NEGATIVE); BILIRUBIN, URINE AUTO NEGATIVE (NEGATIVE); BLOOD, URINE BLOOD 3+ (NEGATIVE); COLOR, URINE YELLOW (YELLOW); GLUCOSE, URINE (UA) AUTO 2+ mg/dL (NEGATIVE); KETONE, URINE AUTO NEGATIVE (NEGATIVE); LEUKOCYTE ESTERASE, URINE AUTO 3+ (NEGATIVE); MUCUS, URINE SMALL (NEGATIVE); NITRITE, URINE AUTO NEGATIVE (NEGATIVE); PROTEIN, URINE AUTO NEGATIVE (NEGATIVE); RBC, URINE AUTO 40 /HPF (0-3); SQUAMOUS EPITHELIAL CELL UR AU 3 /HPF (0-6); UROBILINOGEN, URINE AUTO 0.2 mg/dL (0.0-2.0); WBC, URINE AUTO TNTC /HPF (0-3)
== END ==
LOC: M LAB REF 16:50
PROVIDERS: ATTEND Physician Assistant Medical
DX: R31.9 Hematuria, unspecified (principal)

== ENCOUNTER → 2020-09-22 | Outpatient (REF) | payer BC ==
[2020-09-22 18:09] LABS: APPEARANCE, URINE CLOUDY (CLEAR); BACTERIA, URINE AUTO 2+ (NEGATIVE); BILIRUBIN, URINE AUTO NEGATIVE (NEGATIVE); BLOOD, URINE BLOOD 2+ (NEGATIVE); COLOR, URINE YELLOW (YELLOW); GLUCOSE, URINE (UA) AUTO 3+ mg/dL (NEGATIVE); KETONE, URINE AUTO NEGATIVE (NEGATIVE); LEUKOCYTE ESTERASE, URINE AUTO 3+ (NEGATIVE); MUCUS, URINE SMALL (NEGATIVE); NITRITE, URINE AUTO NEGATIVE (NEGATIVE); PROTEIN, URINE AUTO 2+ mg/dL (NEGATIVE); RBC, URINE AUTO 11 /HPF (0-3); SPECIFIC GRAVITY URINE AUTO 1.014 (1.002-1.035); SQUAMOUS EPITHELIAL CELL UR AU 9 /HPF (0-6); UROBILINOGEN, URINE AUTO 0.2 mg/dL (0.0-2.0); WBC, URINE AUTO 99 /HPF (0-3)
== END ==
LOC: M SMT 16:58
PROVIDERS: ATTEND Nurse Practitioner Family
DX: N39.0 Urinary tract infection, site not specified (principal)

== ENCOUNTER → 2020-09-25 | Outpatient (CLI) | payer BC ==
--- NOTE | 2020-09-27 05:03 | REP ---
INDICATION: KIDNEY STONES COMPARISON: 11/03/2019 TECHNIQUE: Axial noncontrast images from the lung bases to the pubic symphysis with coronal and sagittal reformations. This CT examination was performed using the following dose reduction techniques: Automated exposure control, adjustment of mA and/or kv according to the patient's size, and use of iterative reconstruction technique. FINDINGS: Lung bases are clear. Visualized heart and pericardium normal. Liver is enlarged without focal hepatic lesion identified. Spleen, pancreas, gallbladder, right adrenal glands and left kidney are normal. Stable 1.5 cm left adrenal adenoma again noted. Right kidney includes 21 x 15 by 9 mm staghorn calculus forming in the lower pole calyx and extending into the renal pelvis causing mild likely chronic partial obstruction. No further nephroureterolithiasis noted. The enteric system is unremarkable and without obstruction or acute inflammatory process. Normal terminal ileum and appendix identified in the right lower quadrant. Pelvis demonstrates normal bladder and prior hysterectomy. No ascites. No free air. No adenopathy. No focal inflammatory stranding. Abdominal aorta without aneurysm. Musculoskeletal structures are intact and without acute osseous abnormality. Posterior lumbar fixation noted. IMPRESSION: 1. Staghorn calculus forming in the right renal pelvis causing mild likely chronic hydronephrosis. No further urinary tract calcifications are appreciated. 2. Hepatomegaly. 3. Stable left adrenal adenoma. 4. No further acute abdominopelvic pathology appreciated. <Electronically signed by Wilbert Marcus > 09/27/20 [id number]
== END ==
LOC: M RAD 11:18
PROVIDERS: ATTEND Nurse Practitioner Family
DX: N13.2 Hydronephrosis with renal and ureteral calculous obstruction (principal); R16.0 Hepatomegaly, not elsewhere classified

== ENCOUNTER → 2020-10-19 | Outpatient (REF) | payer BC ==
[2020-10-19 14:37] LABS: APPEARANCE, URINE CLOUDY (CLEAR); BACTERIA, URINE AUTO 1+ (NEGATIVE); BILIRUBIN, URINE AUTO NEGATIVE (NEGATIVE); BLOOD, URINE BLOOD 2+ (NEGATIVE); COLOR, URINE YELLOW (YELLOW); GLUCOSE, URINE (UA) AUTO 3+ mg/dL (NEGATIVE); KETONE, URINE AUTO TRACE mg/dL (NEGATIVE); LEUKOCYTE ESTERASE, URINE AUTO 1+ (NEGATIVE); MUCUS, URINE SMALL (NEGATIVE); NITRITE, URINE AUTO NEGATIVE (NEGATIVE); PROTEIN, URINE AUTO 1+ mg/dL (NEGATIVE); RBC, URINE AUTO 35 /HPF (0-3); SPECIFIC GRAVITY URINE AUTO 1.031 (1.002-1.035); SQUAMOUS EPITHELIAL CELL UR AU 8 /HPF (0-6); UROBILINOGEN, URINE AUTO 0.2 mg/dL (0.0-2.0); WBC, URINE AUTO 59 /HPF (0-3)
== END ==
LOC: M SMT 13:02
PROVIDERS: ATTEND Nurse Practitioner Family
DX: N39.0 Urinary tract infection, site not specified (principal)

== ENCOUNTER 2020-11-18 16:39 | Emergency (ER) | payer BC ==
[~2020-11-18] VITALS: Ht 180.3 cm; Wt 100.3 kg
[2020-11-18] MEDS ORDERED: MONT10TA10 (16:52)
[2020-11-18] MEDS ORDERED: ROSU40TA4 (16:52)
[2020-11-18] MEDS ORDERED: diphenhydrAMINE 50MG CAP PO ONE (18:40)
[2020-11-18] MEDS ORDERED: predniSONE 20 MG TAB PO ONE (18:40)
[2020-11-18 20:22] VITALS: BP 153/88
== END 2020-11-18 20:40 | disposition home or self-care (01) ==
LOC: M ED 16:39
DX: L29.9 Pruritus, unspecified (principal); T78.40XA Allergy, unspecified, initial encounter; Y92.9 Unspecified place or not applicable; Y93.9 Activity, unspecified; E11.9 Type 2 diabetes mellitus without complications; I10 Essential (primary) hypertension; Z86.19 Personal history of other infectious and parasitic diseases; F17.200 Nicotine dependence, unspecified, uncomplicated; Z79.4 Long term (current) use of insulin; Z79.899 Other long term (current) drug therapy; Z91.018 Allergy to other foods; Z88.2 Allergy status to sulfonamides; Z88.8 Allergy status to other drugs, medicaments and biological substances

== ENCOUNTER → 2021-02-25 | Outpatient (REF) | payer BC ==
[~2021-02-25] MED LIST changes: +MONT10TA10; +OMEP40CA4 PO; -OMEP40CA97 PO; +ROSU40TA4
[2021-02-25 14:01] LABS: HEMOGLOBIN A1c 10.7 %
== END ==
LOC: M WUC 12:23
PROVIDERS: ATTEND Physician Assistant Medical
DX: E11.40 Type 2 diabetes mellitus with diabetic neuropathy, unspecified (principal)

== ENCOUNTER → 2022-03-23 | Outpatient (CLI) | payer BC ==
[~2022-03-23] MED LIST changes: +ALBU2.5V10 INH; -ALBU83IN INH; -MONT10TA10; +MONT10TA97
== END ==
LOC: M SOG 11:10
PROVIDERS: ATTEND Orthopaedic Surgery Adult Reconstructive Orthopaedic Surgery
DX: M17.0 Bilateral primary osteoarthritis of knee (principal)

== ENCOUNTER 2025-03-15 01:12 | Inpatient (IN) | payer BC ==
[~2025-03-15] VITALS: Ht 182.9 cm; Wt 90.0 kg
[2025-03-15] VITALS (66 sets, daily range): BP systolic 136–218; BP diastolic 57–102; TEMP 97.8–100.4; O2SAT 88–98
[~2025-03-15 01:12] MED LIST changes: +ARTIDRO4 OU; +BENA25CA4 PO; -BYST10TA2 PO; +BYST1TAB3 PO; +CEPH500C PO; +CIPR-249 PO; +CYCL5TAB4 PO; +DULA4.5P SC; +FLON1SPR NARES; -GLIM1TAB4 PO; +GLIM1TAB84 PO; +INSU100I6 SC; -LEVE1INJ5 SC; +MONT10TA97 PO; -POLYOPD OU; +POTA-298 PO; +PROB250C PO; -ROSU40TA4; -ROSU40TA4 PO; +ROSU40TA81; +ROSU40TA81 PO; +TRES1INJ2 SC; +VALA1TAB5 PO; +VANC125C13 PO; -VANC125C3 PO
[2025-03-15] MEDS ORDERED: LABETALOL 100 MG/20 ML VIAL As Ordered ONE (01:27)
[2025-03-15] MEDS ORDERED: ISOVUE-370 76% 100 ML VIAL As Ordered ONE (01:46)
[2025-03-15] MEDS: LABETALOL 100 MG/20 ML VIAL IV STA (02:05)
[2025-03-15] MEDS: niCARdipine IV 40 MG in IV 1 EA IV SCH ×2 (02:11→08:54)
[2025-03-15 02:19] LABS: BASO # 0.0 10^3/uL (0.0-0.2); BASO % 0.5 % (0.0-1.0); EOS # 0.2 10^3/uL (0.0-0.5); EOS % 2.7 % (0.0-3.0); LYMPH # 2.1 10^3/uL (1.5-5.0); LYMPH % 28.9 % (24.0-44.0); MONO # 0.4 10^3/uL (0.0-0.8); MONO % 6.0 % (2.0-8.0); NEUTROPHILS # 4.5 10^3/uL (1.5-8.5); NEUTROPHILS % 61.5 % (36.0-66.0); PLATELET COUNT, AUTOMATED 375 10^3/uL (150-450)
[2025-03-15] MEDS: ACETAMINOPHEN *IV* 1,000 MG in IV 1 EA IV ONE (02:25)
[2025-03-15 02:42] LABS: INR 0.96
[2025-03-15 02:51] LABS: CPK CREATINE PHOSPHOKINASE 17 U/L (34-145)
[2025-03-15 02:53] LABS: CALCIUM LEVEL 9.2 MG/DL (8.5-10.1); CARBON DIOXIDE LEVEL 26 MMOL/L (20-31); CHLORIDE LEVEL 95 MMOL/L (98-107); CK-MB VALUE MASS < 1.0 NG/ML (<3.6); CREATININE FOR GFR 0.60 MG/DL (0.55-1.30); GLOMERULAR FILTRATION RATE > 90.0 (>51); POTASSIUM SERUM 3.8 MMOL/L (3.5-5.1); SODIUM LEVEL 135 MMOL/L (136-145)
[2025-03-15 03:16] LABS: ACETONE/KETONE 0.28 MMOL/L (0.02-0.27)
[2025-03-15] MEDS: HumuLIN R (REGULAR) INSULIN (NovoLIN R) **100 U/ML** PER UNIT IV ONE (03:25)
[2025-03-15 03:52] LABS: VENOUS BASE EXCESS -0.7 (-2.0-2.0); VENOUS HCO3 23.1 MMOL/L (23.0-27.0); VENOUS O2 SATURATION 96.3 % (60.0-80.0); VENOUS PARTIAL PRESSURE CO2 35.2 mmHg (38.0-50.0); VENOUS PARTIAL PRESSURE O2 81.7 mmHg (30.0-50.0); VENOUS PH 7.435 UNITS (7.330-7.430); VENOUS STANDARD HCO3 23.9 MMOL/L; VENOUS TOTAL CO2 24.2 MMOL/L (24.0-28.0)
[2025-03-15 04:17] LABS: KETONE, URINE AUTO RFX NEGATIVE (NEGATIVE); MUCUS, URINE RFX SMALL (NEGATIVE); NITRITE, URINE AUTO RFX NEGATIVE (NEGATIVE); RBC, URINE AUTO RFX 116 /HPF (0-3); SQUAM EPITHELIAL CELL UR AURFX 1 /HPF (0-6)
[2025-03-15] MEDS: ASPIRIN 81 MG CHEWABLE TABLET PO ONE (04:19)
[2025-03-15] MEDS: LanTUS (INSULIN GLARGINE INJ) 1 UNITS/0.01 ML SC ONE (04:20)
[2025-03-15] MEDS ORDERED: niCARdipine IV 40 MG in IV 1 EA IV SCH (04:25)
[2025-03-15 04:26] LABS: LEUKOCYTE ESTERASE UR AUTO RFX 3+ (NEGATIVE); WBC, URINE AUTO RFX 27 /HPF (0-3)
[2025-03-15 04:31] LABS: CK-MB VALUE MASS < 1.0 NG/ML (<3.6)
[2025-03-15 04:32] LABS: CPK CREATINE PHOSPHOKINASE 24 U/L (34-145)
[2025-03-15] MEDS ORDERED: SPIR12.9 INH (05:32)
[2025-03-15] MEDS ORDERED: MULT-90 PO (05:32)
[2025-03-15] MEDS ORDERED: HOME MED LIST COMPLETE! XX SCH ×2 (05:35→09:05)
[2025-03-15] MEDS ORDERED: GLUCOSE 4 GM CHEW PO PRN (06:05)
[2025-03-15] MEDS ORDERED: GLUCAGON INJ 1 MG VIAL SC PRN (06:05)
[2025-03-15] MEDS ORDERED: DEXTROSE 50% 50 ML SYRINGE IV PRN ×2 (06:05→20:05)
[2025-03-15] MEDS ORDERED: ALBUTEROL SULFATE 2.5 MG/0.5 ML INH CONCENTRATE NEB SOLN NEB PRN (08:00)
[2025-03-15] MEDS: INSULIN LISPRO (NovoLOG) PER UNIT SC SCH ×3 (08:32→20:31)
[2025-03-15] MEDS: MONTELUKAST 10 MG TAB PO SCH (08:53)
[2025-03-15] MEDS: HEPARIN SOD 5000 UNITS/ML 1 ML VIAL/SYRINGE SC SCH (08:55)
[2025-03-15] MEDS: amLODIPine 5 MG TAB PO SCH (13:09)
[2025-03-15] MEDS: ACETAMINOPHEN 325 MG TAB PO PRN (13:10)
[2025-03-15] MEDS: SYMBICORT 160/4.5MCG INHALER 6GM INH SCH (13:36)
[2025-03-15] MEDS: TIOTROPIUM BROM 2.5MCG/ACTUATION 4GM INH INH SCH (13:36)
[2025-03-15] MEDS ORDERED: INSULIN LISPRO (NovoLOG) PER UNIT SC SCH (17:30)
[2025-03-16] VITALS (44 sets, daily range): BP systolic 130–190; BP diastolic 62–92; TEMP 97.9–99.2; O2SAT 90–99
[2025-03-16 04:50] LABS: PLATELET COUNT, AUTOMATED 339 10^3/uL (150-450)
[2025-03-16 05:21] LABS: ALT/SGPT 27 U/L (7.0-40); AST/SGOT 23 U/L (<34); CALCIUM LEVEL 9.1 MG/DL (8.5-10.1); CARBON DIOXIDE LEVEL 24 MMOL/L (20-31); CHLORIDE LEVEL 103 MMOL/L (98-107); CREATININE FOR GFR 0.59 MG/DL (0.55-1.30); GLOMERULAR FILTRATION RATE > 90.0 (>51); POTASSIUM SERUM 3.6 MMOL/L (3.5-5.1); SODIUM LEVEL 142 MMOL/L (136-145)
[2025-03-16] MEDS ORDERED: INSULIN LISPRO (NovoLOG) PER UNIT SC SCH (12:00)
[2025-03-16] MEDS: LanTUS (INSULIN GLARGINE INJ) 1 UNITS/0.01 ML SC ONE (13:08)
[2025-03-16] MEDS: INSULIN LISPRO (NovoLOG) PER UNIT SC SCH (13:28)
[2025-03-16] MEDS ORDERED: LanTUS (INSULIN GLARGINE INJ) 1 UNITS/0.01 ML SC SCH (21:00)
[2025-03-16] MEDS: cefTRIAXone SOD 1 GM in DEXTROSE 5% (D5W) ADV/MINI-BAG 50 ML IV SCH (21:08)
[2025-03-17 04:21] VITALS: BP 144/77; TEMP 97.4; O2SAT 92
[2025-03-17 04:53] LABS: PLATELET COUNT, AUTOMATED 346 10^3/uL (150-450)
[2025-03-17 05:28] LABS: ALT/SGPT 24 U/L (7.0-40); AST/SGOT 20 U/L (<34); CALCIUM LEVEL 9.6 MG/DL (8.5-10.1); CARBON DIOXIDE LEVEL 25 MMOL/L (20-31); CHLORIDE LEVEL 103 MMOL/L (98-107); CREATININE FOR GFR 0.69 MG/DL (0.55-1.30); GLOMERULAR FILTRATION RATE > 90.0 (>51); POTASSIUM SERUM 3.7 MMOL/L (3.5-5.1); SODIUM LEVEL 141 MMOL/L (136-145)
[2025-03-17 08:00] VITALS: BP 161/81; TEMP 97.7; O2SAT 95
[2025-03-17] MEDS: LanTUS (INSULIN GLARGINE INJ) 1 UNITS/0.01 ML SC SCH (08:31)
[2025-03-17 08:35] VITALS: BP 161/81
[2025-03-17 12:00] VITALS: BP 143/70; TEMP 97.8; O2SAT 96
[2025-03-17] MEDS ORDERED: CLONI1TA PO (12:36)
[2025-03-17] MEDS ORDERED: AMLO1TAB24 PO (12:36)
[2025-03-21 20:57] LABS: CALCULATED TOTAL E AND NE 15 mcg/24 h (26-121); DOPAMINE 29 mcg/24 h (52-480); NOREPINEPHRINE 15 mcg/24 h (15-100)
[2025-03-22 16:13] LABS: ALDOS/RENIN RATIO 6.2 Ratio (0.9-28.9); ALDOSTERONE LC 4 ng/dL (see note); RENIN ACTIVITY 0.65 ng/mL/h (0.25-5.82)
== END 2025-03-17 14:40 | disposition home or self-care (01) | DRG 199 ==
LOC: EDBD 01:12 → M ED 01:12 → M ED INP 04:23 → M ICU 05:34
PROVIDERS: ADMIT Student in an Organized Health Care Education/Training Program; ATTEND Student in an Organized Health Care Education/Training Program
PROC: B246ZZZ Ultrasonography of Right and Left Heart (ICD-10-PCS; principal; 2025-03-16)
DX: I16.1 Hypertensive emergency (principal); M32.9 Systemic lupus erythematosus, unspecified; N13.30 Unspecified hydronephrosis; E11.65 Type 2 diabetes mellitus with hyperglycemia; N20.1 Calculus of ureter; E78.5 Hyperlipidemia, unspecified; J45.909 Unspecified asthma, uncomplicated; Z90.79 Acquired absence of other genital organ(s); Z79.4 Long term (current) use of insulin; Z79.84 Long term (current) use of oral hypoglycemic drugs; Z79.899 Other long term (current) drug therapy; Z88.1 Allergy status to other antibiotic agents; Z88.2 Allergy status to sulfonamides; Z88.8 Allergy status to other drugs, medicaments and biological substances; Z91.018 Allergy to other foods; Z86.73 Personal history of transient ischemic attack (TIA), and cerebral infarction without residual deficits; I10 Essential (primary) hypertension

== ENCOUNTER → 2025-04-28 | Outpatient (CLI) | payer BC ==
[~2025-04-28] MED LIST changes: +AMLO1TAB24 PO; +CLONI1TA PO; +MULT-90 PO; +SPIR12.9 INH
[2025-04-28 17:56] LABS: ALT/SGPT 44.0 U/L (7.0-40); AST/SGOT 26.0 U/L (<34); CALCIUM LEVEL 10.1 MG/DL (8.5-10.1); CARBON DIOXIDE LEVEL 28.0 MMOL/L (20-31); CHLORIDE LEVEL 101.0 MMOL/L (98-107); CREATININE FOR GFR 0.78 MG/DL (0.55-1.30); GLOMERULAR FILTRATION RATE 88.0 (>51); POTASSIUM SERUM 4.2 MMOL/L (3.5-5.1); SODIUM LEVEL 141.0 MMOL/L (136-145)
== END ==
LOC: M PLALAB 16:17
PROVIDERS: ATTEND Student in an Organized Health Care Education/Training Program
DX: I10 Essential (primary) hypertension (principal)

== ENCOUNTER → 2025-08-01 | Outpatient (CLI) | payer BC ==
[2025-08-01 19:25] LABS: BASO # 0.1 10^3/uL (0.0-0.2); BASO % 0.6 % (0.0-1.0); EOS # 0.1 10^3/uL (0.0-0.5); EOS % 1.1 % (0.0-3.0); LYMPH # 2.2 10^3/uL (1.5-5.0); LYMPH % 27.9 % (24.0-44.0); MONO # 0.4 10^3/uL (0.0-0.8); MONO % 5.4 % (2.0-8.0); NEUTROPHILS # 5.1 10^3/uL (1.5-8.5); NEUTROPHILS % 64.7 % (36.0-66.0); PLATELET COUNT, AUTOMATED 439 10^3/uL (150-450)
[2025-08-01 19:36] LABS: ESTIMATED AVERAGE GLUCOSE 140.0 MG/DL (60-110)
[2025-08-01 19:53] LABS: ALT/SGPT 41 U/L (7.0-40); AST/SGOT 27 U/L (<34); CALCIUM LEVEL 10.1 MG/DL (8.5-10.1); CARBON DIOXIDE LEVEL 24 MMOL/L (20-31); CHLORIDE LEVEL 103 MMOL/L (98-107); CHOLESTEROL LEVEL 293 MG/DL (<200); CHOLESTEROL RISK RATIO 5.41 (<5); CREATININE FOR GFR 0.71 MG/DL (0.55-1.30); GLOMERULAR FILTRATION RATE > 90.0 (>51); LDL CHOLESTEROL 196.7 MG/DL (<100); MAGNESIUM LEVEL 1.8 MG/DL (1.8-2.4); NON-HDL-C 238.9 MG/DL; POTASSIUM SERUM 3.5 MMOL/L (3.5-5.1); SODIUM LEVEL 140 MMOL/L (136-145); TRIGLYCERIDES LEVEL 211 MG/DL (<150)
[2025-08-01 19:55] LABS: TOTAL 25(OH) VITAMIN D 51.8 NG/ML (20.0-100.0)
== END ==
LOC: M RAD 18:33
PROVIDERS: ATTEND Student in an Organized Health Care Education/Training Program
DX: Z00.00 Encounter for general adult medical examination without abnormal findings (principal); W19.XXXA Unspecified fall, initial encounter; E11.8 Type 2 diabetes mellitus with unspecified complications